=== PATIENT | female | born 1950 | race Caucasian/White ===

== ENCOUNTER → 2016-10-16 | Outpatient (REF) | payer MEDICARE, MEDICAID, OTHER ==
[~2016-10-16] MED LIST: /LAMO20TA; /LAMO20TA OR; /ZIAC5TA; /ZIAC5TA OR; ABIL5TAB OR; ACET65TA; ACET65TA OR; ALBU INH; ALBU17IN INH; ALBU17IN2 INH; ALTA10CA; ALTA10CA OR; AMBI5TAB; AMBI5TAB OR; AMLO10TA; AMLO10TA OR; AMLO10TA2 PO; ASPI325T; ASPI325T OR; ASPI81TA3; BUSP1TAB PO; CARD2TAB; CARD2TAB OR; CELE20TA; CELE20TA OR; CELE20TA PO; CELE40TA PO; COLA100C2; COLA100C2 OR; DITR5TAB PO; DOCU100C PO; DOK100TA PO; DOXA1TAB41 PO; Dulcolax PR; FANAPT OR; FERR325T OR; FERR325T3 PO; KLON1TAB OR; LAMI25TA PO; LAMO100T PO; LEVO25TA5 PO; LEVO25TABR; LEVO25TABR OR; LIPI10TA; LIPI10TA OR; LIPI10TA PO; LISI40TA OR; LISI40TAB PO; LITH450T PO; MACROBID; MACROBID OR; MAPA325T2 PO; MIRA3350 PO; MOBI15TA PO; MOBI7.5T10 PO; MONT10TA2 PO; MULTIVIT; MULTIVIT OR; OMEP40CA2 PO; OSEL75CA PO; PERC5TAB8; PERC5TAB8 OR; PERC7.5T8; PERC7.5T8 OR; PRIL20CA; PRIL20CA OR; PRO AIR INH; PROV90AE; PROZ20CA11 PO; REME15TA PO; RISP2TAB30 PO; SENN8.6T14; SENN8.6T14 OR; SERO400T; SERO400T OR; SING10TA31; SING10TA31 OR; TRAZ100T2 PO; TRAZ100T4 PO; TYLE325T5 PO; ZIPR80CAP PO; ZOLO25TA PO; ZOLO50TA PO; [UNRECOGNIZED DRUG - CODE] PO; desyrel PO
[2016-10-16 09:53] LABS: BASO % 0.4 % (0.0-1.0); EOS # 0.2 K/mm3 (0.0-0.50); EOS % 2.6 % (0.0-3.0); LYMPH # 0.9 K/mm3 (1.5-4.5); LYMPH % 13.2 % (24.0-44.0); MEAN CORPUSCULAR HEMOGLOBIN 28.5 pg (27.0-33.0); MEAN CORPUSCULAR HGB CONC 32.4 g/dl (32.0-36.5); MEAN CORPUSCULAR VOLUME 87.9 fl (80.0-96.0); MONO # 0.4 K/mm3 (0.0-0.8); MONO % 6.5 % (0.0-5.0); NEUTROPHILS # 4.6 K/mm3 (1.8-7.7); NEUTROPHILS % 75.8 % (36.0-66.0); RED CELL DISTRIBUTION WIDTH 13.7 % (11.5-14.5)
[2016-10-16 10:17] LABS: ALBUMIN/GLOBULIN RATIO 0.75 (1.00-1.93); ALKALINE PHOSPHATASE 123 U/L (45-117); ALT/SGPT 12 U/L (12-78); ANION GAP 9 MEQ/L (8-16); AST/SGOT 14 U/L (15-37); BILIRUBIN,TOTAL 0.3 MG/DL (0.2-1.0); BLOOD UREA NITROGEN 11 MG/DL (7-18); CALCIUM LEVEL 8.7 MG/DL (8.8-10.2); CARBON DIOXIDE LEVEL 27 MEQ/L (21-32); CHLORIDE LEVEL 104 MEQ/L (98-107); CHOLESTEROL LEVEL 135 MG/DL (<200); CREATININE FOR GFR 0.59 MG/DL (0.55-1.02); GLOMERULAR FILTRATION RATE > 60.0 (>45); GLUCOSE, FASTING 88 MG/DL (80-110); POTASSIUM SERUM 4.4 MEQ/L (3.5-5.1); SODIUM LEVEL 140 MEQ/L (136-145); THYROXINE (T4) 9.7 UG/DL (4.5-12.0); TRIGLYCERIDES LEVEL 62 MG/DL (<150)
== END ==
LOC: SKLABADC 08:08
PROVIDERS: ATTEND Nurse Practitioner Adult Health
DX: I10 Essential (primary) hypertension (principal); Z79.899 Other long term (current) drug therapy; E03.9 Hypothyroidism, unspecified; E55.9 Vitamin D deficiency, unspecified; E78.00 Pure hypercholesterolemia, unspecified; I97.3 Postprocedural hypertension; F31.9 Bipolar disorder, unspecified

== ENCOUNTER → 2016-12-16 | Outpatient (REF) | payer MEDICARE, MEDICAID, OTHER ==
[2016-12-16 10:04] LABS: BASO % 0.4 % (0.0-1.0); EOS # 0.2 K/mm3 (0.0-0.50); LARGE UNSTAINED CELL # 0.1 K/mm3 (0.0-0.4); LARGE UNSTAINED CELL % 1.1 % (0.0-4.0); LYMPH # 0.9 K/mm3 (1.5-4.5); LYMPH % 15.5 % (24.0-44.0); MEAN CORPUSCULAR HEMOGLOBIN 29.2 pg (27.0-33.0); MEAN CORPUSCULAR HGB CONC 32.2 g/dl (32.0-36.5); MEAN CORPUSCULAR VOLUME 90.6 fl (80.0-96.0); MONO # 0.3 K/mm3 (0.0-0.8); MONO % 5.8 % (0.0-5.0); NEUTROPHILS # 4.3 K/mm3 (1.8-7.7); NEUTROPHILS % 74.2 % (36.0-66.0); PLATELET COUNT, AUTOMATED 432 k/mm3 (150-450); RED CELL DISTRIBUTION WIDTH 13.7 % (11.5-14.5); WHITE BLOOD COUNT 5.8 K/mm3 (4.0-10.0)
[2016-12-16 10:27] LABS: ALBUMIN/GLOBULIN RATIO 0.67 (1.00-1.93); ALKALINE PHOSPHATASE 126 U/L (45-117); ALT/SGPT 11 U/L (12-78); ANION GAP 8 MEQ/L (8-16); AST/SGOT 12 U/L (15-37); BILIRUBIN,TOTAL 0.2 MG/DL (0.2-1.0); BLOOD UREA NITROGEN 13 MG/DL (7-18); CALCIUM LEVEL 9.1 MG/DL (8.8-10.2); CARBON DIOXIDE LEVEL 27 MEQ/L (21-32); CHLORIDE LEVEL 106 MEQ/L (98-107); CHOLESTEROL LEVEL 134 MG/DL (<200); CREATININE FOR GFR 0.57 MG/DL (0.55-1.02); FREE T4 1.24 NG/DL (0.76-1.46); GLOMERULAR FILTRATION RATE > 60.0 (>45); GLUCOSE, FASTING 85 MG/DL (80-110); POTASSIUM SERUM 4.7 MEQ/L (3.5-5.1); SODIUM LEVEL 141 MEQ/L (136-145); TOTAL PROTEIN 7.5 GM/DL (6.4-8.2); TRIGLYCERIDES LEVEL 51 MG/DL (<150)
== END ==
LOC: SKLABADC 07:37
PROVIDERS: ATTEND Nurse Practitioner Adult Health
DX: E78.00 Pure hypercholesterolemia, unspecified (principal); E55.9 Vitamin D deficiency, unspecified; E03.9 Hypothyroidism, unspecified; Z79.899 Other long term (current) drug therapy

== ENCOUNTER 2017-01-26 10:42 | Emergency (ER) | payer MEDICARE, MEDICAID ==
[~2017-01-26] VITALS: Ht 167.6 cm; Wt 72.7 kg
[2017-01-26] MEDS ORDERED: BACT2OIN12 (11:15)
[2017-01-26] MEDS ORDERED: TRIA1CR TOP (11:15)
[2017-01-26] MEDS ORDERED: CLOT1CRE6 TOP (11:15)
[2017-01-26] MEDS ORDERED: APAP325T PO (11:15)
[2017-01-26] MEDS ORDERED: LAMO50TA PO (11:15)
[2017-01-26 12:58] VITALS: BP 114/67
== END 2017-01-26 13:35 | disposition home or self-care (01) ==
LOC: M ED 12:05
DX: R21 Rash and other nonspecific skin eruption (principal); E11.9 Type 2 diabetes mellitus without complications; I10 Essential (primary) hypertension; K21.9 Gastro-esophageal reflux disease without esophagitis; F31.9 Bipolar disorder, unspecified; E78.5 Hyperlipidemia, unspecified; E07.9 Disorder of thyroid, unspecified; F20.9 Schizophrenia, unspecified; Z79.899 Other long term (current) drug therapy

== ENCOUNTER → 2017-03-17 | Outpatient (REF) | payer MEDICARE, MEDICAID ==
[~2017-03-17] MED LIST changes: +ACYC800T PO; +APAP325T4 PO; +BACT2OIN12; +CLOT1CRE6 TOP; +LAMO50TA PO; +MOBI4TAB PO; -MOBI7.5T10 PO; -RISP2TAB30 PO; +RISP2TAB32 PO; +TRAZ-136 PO; -TRAZ100T4 PO; +TRIA1CR TOP
[2017-03-17 11:00] LABS: BASO % 0.6 % (0.0-1.0); EOS # 0.2 K/mm3 (0.0-0.50); EOS % 2.8 % (0.0-3.0); LYMPH # 1.1 K/mm3 (1.5-4.5); LYMPH % 15.4 % (24.0-44.0); MEAN CORPUSCULAR HEMOGLOBIN 28.8 pg (27.0-33.0); MEAN CORPUSCULAR HGB CONC 32.6 g/dl (32.0-36.5); MEAN CORPUSCULAR VOLUME 88.1 fl (80.0-96.0); MONO # 0.4 K/mm3 (0.0-0.8); MONO % 6.2 % (0.0-5.0); NEUTROPHILS # 4.5 K/mm3 (1.8-7.7); NEUTROPHILS % 73.2 % (36.0-66.0); RED CELL DISTRIBUTION WIDTH 13.7 % (11.5-14.5); WHITE BLOOD COUNT 6.1 K/mm3 (4.0-10.0)
[2017-03-17 11:16] LABS: ALBUMIN 2.9 GM/DL (3.2-5.2); ALBUMIN/GLOBULIN RATIO 0.62 (1.00-1.93); ALKALINE PHOSPHATASE 127 U/L (45-117); ALT/SGPT 12 U/L (12-78); ANION GAP 5 MEQ/L (8-16); AST/SGOT 6 U/L (15-37); BILIRUBIN,TOTAL 0.3 MG/DL (0.2-1.0); BLOOD UREA NITROGEN 13 MG/DL (7-18); CALCIUM LEVEL 9.1 MG/DL (8.8-10.2); CARBON DIOXIDE LEVEL 30 MEQ/L (21-32); CHLORIDE LEVEL 104 MEQ/L (98-107); CHOLESTEROL LEVEL 133 MG/DL (<200); CREATININE FOR GFR 0.57 MG/DL (0.55-1.02); FREE T4 1.11 NG/DL (0.76-1.46); GLOMERULAR FILTRATION RATE > 60.0 (>45); GLUCOSE, FASTING 90 MG/DL (80-110); POTASSIUM SERUM 4.6 MEQ/L (3.5-5.1); SODIUM LEVEL 139 MEQ/L (136-145); TOTAL PROTEIN 7.6 GM/DL (6.4-8.2); TRIGLYCERIDES LEVEL 68 MG/DL (<150)
== END ==
LOC: SKLABADC 09:35
PROVIDERS: ATTEND Nurse Practitioner Adult Health
DX: Z51.81 Encounter for therapeutic drug level monitoring (principal); Z79.899 Other long term (current) drug therapy; E03.9 Hypothyroidism, unspecified; E55.9 Vitamin D deficiency, unspecified; D64.9 Anemia, unspecified; E78.00 Pure hypercholesterolemia, unspecified; I10 Essential (primary) hypertension

== ENCOUNTER 2017-05-02 12:33 | Emergency (ER) | payer MEDICARE, MEDICAID ==
[~2017-05-02] VITALS: Ht 162.6 cm; Wt 77.3 kg
[2017-05-02 12:33] VITALS: BP 143/58
[~2017-05-02 12:33] MED LIST changes: -ACYC800T PO
[2017-05-02] MEDS ORDERED: ACYC800T PO (13:27)
== END 2017-05-02 13:46 | disposition home or self-care (01) ==
LOC: M ED 12:33
DX: B02.9 Zoster without complications (principal); I10 Essential (primary) hypertension; E78.00 Pure hypercholesterolemia, unspecified; R51 Headache; J45.909 Unspecified asthma, uncomplicated; K44.9 Diaphragmatic hernia without obstruction or gangrene; R73.01 Impaired fasting glucose; E07.9 Disorder of thyroid, unspecified; M54.9 Dorsalgia, unspecified; F41.9 Anxiety disorder, unspecified; F32.9 Major depressive disorder, single episode, unspecified; Z79.899 Other long term (current) drug therapy

== ENCOUNTER → 2017-09-17 | Outpatient (REF) | payer MEDICARE, MEDICAID, OTHER ==
[2017-09-17 10:41] LABS: BASO % 0.5 % (0.0-1.0); EOS # 0.2 10^3/uL (0.0-0.50); HEMATOCRIT 37.8 % (36.0-47.0); HEMOGLOBIN 12.3 g/dl (12.0-16.0); IMMATURE GRANULOCYTE % 0.4 % (0-0); LYMPH # 0.9 10^3/uL (1.5-4.5); LYMPH % 11.6 % (24.0-44.0); MEAN CORPUSCULAR HEMOGLOBIN 28.3 pg (27.0-33.0); MEAN CORPUSCULAR HGB CONC 32.5 g/dl (32.0-36.5); MEAN CORPUSCULAR VOLUME 86.9 fl (80.0-96.0); MONO # 0.6 10^3/uL (0.0-0.8); MONO % 7.9 % (0.0-5.0); NEUTROPHILS # 5.8 10^3/uL (1.8-7.7); NEUTROPHILS % 77.6 % (36.0-66.0); PLATELET COUNT, AUTOMATED 443 10^3/uL (150-450); RED BLOOD COUNT 4.35 10^6/uL (4.00-5.40); RED CELL DISTRIBUTION WIDTH 13.8 % (11.5-14.5); WHITE BLOOD COUNT 7.5 10^3/uL (4.0-10.0)
[2017-09-17 11:11] LABS: ESTIMATED AVERAGE GLUCOSE 108 MG/DL (60-110); HEMOGLOBIN A1c 5.4 %
[2017-09-17 11:15] LABS: TOTAL 25(OH) VITAMIN D 16.9 NG/ML (30.0-100.0)
[2017-09-17 11:22] LABS: ALBUMIN 3.1 GM/DL (3.2-5.2); ALBUMIN/GLOBULIN RATIO 0.67 (1.00-1.93); ALKALINE PHOSPHATASE 122 U/L (45-117); ALT/SGPT 9 U/L (12-78); ANION GAP 8 MEQ/L (8-16); AST/SGOT 9 U/L (7-37); BILIRUBIN,TOTAL 0.2 MG/DL (0.2-1.0); BLOOD UREA NITROGEN 11 MG/DL (7-18); CALCIUM LEVEL 9.2 MG/DL (8.8-10.2); CARBON DIOXIDE LEVEL 26 MEQ/L (21-32); CHLORIDE LEVEL 104 MEQ/L (98-107); CHOLESTEROL LEVEL 129 MG/DL (<200); CHOLESTEROL RISK RATIO 2.015 (<5); CREATININE FOR GFR 0.64 MG/DL (0.55-1.30); FREE T4 1.24 NG/DL (0.76-1.46); GLOMERULAR FILTRATION RATE > 60.0 (>45); GLUCOSE, FASTING 100 MG/DL (70-100); HDL CHOLESTEROL 64 MG/DL (>40); LDL CHOLESTEROL 54.8 MG/DL (<100); NON-HDL-C 65 MG/DL; POTASSIUM SERUM 4.7 MEQ/L (3.5-5.1); SODIUM LEVEL 138 MEQ/L (136-145); TOTAL PROTEIN 7.7 GM/DL (6.4-8.2); TRIGLYCERIDES LEVEL 51 MG/DL (<150)
== END ==
LOC: SKLABADC 09:01
DX: E78.00 Pure hypercholesterolemia, unspecified (principal); D64.9 Anemia, unspecified; E55.9 Vitamin D deficiency, unspecified; I97.3 Postprocedural hypertension; Z79.899 Other long term (current) drug therapy
CPT/HCPCS: 84443

== ENCOUNTER 2017-12-11 23:39 | Inpatient (IN) | payer MEDICARE, OTHER, MEDICAID ==
[2017-12-12 01:36] LABS: BASO % 0.3 % (0.0-1.0); EOS # 0.5 10^3/uL (0.0-0.50); HEMATOCRIT 35.9 % (36.0-47.0); HEMOGLOBIN 11.7 g/dl (12.0-15.5); IMMATURE GRANULOCYTE % 0.3 % (0-3.0); LYMPH # 1.3 10^3/uL (1.5-4.5); LYMPH % 14.1 % (24.0-44.0); MEAN CORPUSCULAR HEMOGLOBIN 27.1 pg (27.0-33.0); MEAN CORPUSCULAR HGB CONC 32.6 g/dl (32.0-36.5); MEAN CORPUSCULAR VOLUME 83.3 fl (80.0-96.0); MONO # 0.8 10^3/uL (0.0-0.8); MONO % 8.7 % (0.0-5.0); NEUTROPHILS # 6.6 10^3/uL (1.8-7.7); NEUTROPHILS % 71.6 % (36.0-66.0); PLATELET COUNT, AUTOMATED 410 10^3/uL (150-450); RED BLOOD COUNT 4.31 10^6/uL (4.00-5.40); RED CELL DISTRIBUTION WIDTH 14.6 % (11.5-14.5); WHITE BLOOD COUNT 9.3 10^3/uL (4.0-10.0)
[2017-12-12 01:48] LABS: INR 1.09; PROTHROMBIN TIME 14.2 SECONDS (12.4-14.5)
[2017-12-12 02:03] LABS: ANION GAP 7 MEQ/L (8-16); BLOOD UREA NITROGEN 13 MG/DL (7-18); CALCIUM LEVEL 9.4 MG/DL (8.8-10.2); CARBON DIOXIDE LEVEL 27 MEQ/L (21-32); CHLORIDE LEVEL 102 MEQ/L (98-107); CK-MB VALUE MASS < 1.0 NG/ML (<3.6); CPK CREATINE PHOSPHOKINASE 26 U/L (26-192); CREATININE FOR GFR 0.58 MG/DL (0.55-1.30); GLOMERULAR FILTRATION RATE > 60.0 (>45); GLUCOSE, FASTING 98 MG/DL (70-100); MB/CK RELATIVE INDEX 3.84 (< OR =4); POTASSIUM SERUM 3.9 MEQ/L (3.5-5.1); SODIUM LEVEL 136 MEQ/L (136-145); TROPONIN I < 0.02 NG/ML (< 0.10)
[2017-12-12] MEDS: cefTRIAXone SOD 1 GM in D5W MINI-BAG PLUS 50 ML IV (02:41)
[2017-12-12] MEDS ORDERED: traZODone 100 MG TAB PO (03:15)
[2017-12-12] MEDS ORDERED: MIRALAX *UNIT DOSE* 17GM PACKET PO (03:15)
[2017-12-12] MEDS ORDERED: IPRATROPIUM 0.5MG/ALBUTEROL 2.5MG INH SOL UD 3ML (DUONEB)(J7620) NEB (03:15)
[2017-12-12] MEDS: ATORVASTATIN 10 MG TAB PO ×2 (04:06→20:53)
[2017-12-12] MEDS: MONTELUKAST 10 MG TAB PO ×2 (04:06→20:53)
[2017-12-12] MEDS: HEPARIN SOD (PORCINE) 5000 UNITS/ML VIAL SC ×3 (05:06→20:51)
[2017-12-12] MEDS: DOXYCYCLINE HYCLATE 100 MG in D5W MINI-BAG PLUS 100 ML IV ×2 (05:06→18:33)
[2017-12-12] MEDS: LISINOPRIL 20 MG TAB PO (09:00)
[2017-12-12] MEDS: risperiDONE 2 MG TAB PO ×2 (09:00→20:54)
[2017-12-12] MEDS: FERROUS SULFATE 325MG TAB PO (09:00)
[2017-12-12] MEDS: guaiFENesin ER 600 MG TAB PO ×2 (09:01→20:53)
[2017-12-12] MEDS: MELOXICAM (MOBIC) 7.5 MG TAB PO (09:01)
[2017-12-12] MEDS: ACETAMINOPHEN 325 MG TAB PO ×2 (09:01→20:53)
[2017-12-12] MEDS: amLODIPine 10 MG TAB PO (09:01)
[2017-12-12] MEDS: OMEPRAZOLE 20 MG CAP PO (09:01)
[2017-12-12] MEDS: DOCUSATE SODIUM 100 MG CAP PO ×2 (09:01→20:53)
[2017-12-12] MEDS: lamoTRIgine 25 MG TAB PO ×2 (09:01→20:51)
[2017-12-12] MEDS: LEVOTHYROXINE 25MCG TABLET (0.025MG) PO (09:01)
[2017-12-13] MEDS: cefTRIAXone SOD 1 GM in D5W MINI-BAG PLUS 50 ML IV (03:52)
[2017-12-13] MEDS: DOXYCYCLINE HYCLATE 100 MG in D5W MINI-BAG PLUS 100 ML IV ×2 (05:18→17:36)
[2017-12-13] MEDS: HEPARIN SOD (PORCINE) 5000 UNITS/ML VIAL SC ×3 (05:18→21:42)
[2017-12-13 06:07] LABS: HEMATOCRIT 33.8 % (36.0-47.0); HEMOGLOBIN 10.7 g/dl (12.0-15.5); MEAN CORPUSCULAR HEMOGLOBIN 26.8 pg (27.0-33.0); MEAN CORPUSCULAR HGB CONC 31.7 g/dl (32.0-36.5); MEAN CORPUSCULAR VOLUME 84.7 fl (80.0-96.0); PLATELET COUNT, AUTOMATED 390 10^3/uL (150-450); RED BLOOD COUNT 3.99 10^6/uL (4.00-5.40); RED CELL DISTRIBUTION WIDTH 14.9 % (11.5-14.5); WHITE BLOOD COUNT 7.3 10^3/uL (4.0-10.0)
[2017-12-13 06:31] LABS: ANION GAP 6 MEQ/L (8-16); BLOOD UREA NITROGEN 12 MG/DL (7-18); CALCIUM LEVEL 8.8 MG/DL (8.8-10.2); CARBON DIOXIDE LEVEL 26 MEQ/L (21-32); CHLORIDE LEVEL 108 MEQ/L (98-107); CREATININE FOR GFR 0.43 MG/DL (0.55-1.30); GLOMERULAR FILTRATION RATE > 60.0 (>45); GLUCOSE, FASTING 91 MG/DL (70-100); POTASSIUM SERUM 4.3 MEQ/L (3.5-5.1); SODIUM LEVEL 140 MEQ/L (136-145)
[2017-12-13] MEDS: amLODIPine 10 MG TAB PO (08:15)
[2017-12-13] MEDS: guaiFENesin ER 600 MG TAB PO ×2 (08:15→21:40)
[2017-12-13] MEDS: lamoTRIgine 25 MG TAB PO ×2 (08:15→21:42)
[2017-12-13] MEDS: OMEPRAZOLE 20 MG CAP PO (08:16)
[2017-12-13] MEDS: risperiDONE 2 MG TAB PO ×2 (08:16→21:40)
[2017-12-13] MEDS: LEVOTHYROXINE 25MCG TABLET (0.025MG) PO (08:16)
[2017-12-13] MEDS: ACETAMINOPHEN 325 MG TAB PO ×2 (08:16→21:40)
[2017-12-13] MEDS: FERROUS SULFATE 325MG TAB PO (08:16)
[2017-12-13] MEDS: MELOXICAM (MOBIC) 7.5 MG TAB PO (08:16)
[2017-12-13] MEDS: LISINOPRIL 20 MG TAB PO (08:16)
[2017-12-13] MEDS: DOCUSATE SODIUM 100 MG CAP PO ×2 (08:16→21:42)
[2017-12-13] MEDS: ATORVASTATIN 10 MG TAB PO (21:40)
[2017-12-13] MEDS: MONTELUKAST 10 MG TAB PO (21:41)
[2017-12-14] MEDS: cefTRIAXone SOD 1 GM in D5W MINI-BAG PLUS 50 ML IV (03:40)
[2017-12-14] MEDS: HEPARIN SOD (PORCINE) 5000 UNITS/ML VIAL SC ×3 (05:08→21:46)
[2017-12-14] MEDS: DOXYCYCLINE HYCLATE 100 MG in D5W MINI-BAG PLUS 100 ML IV ×2 (05:08→17:21)
[2017-12-14 06:30] LABS: HEMATOCRIT 33.2 % (36.0-47.0); HEMOGLOBIN 10.8 g/dl (12.0-15.5); MEAN CORPUSCULAR HEMOGLOBIN 27.6 pg (27.0-33.0); MEAN CORPUSCULAR HGB CONC 32.5 g/dl (32.0-36.5); MEAN CORPUSCULAR VOLUME 84.9 fl (80.0-96.0); PLATELET COUNT, AUTOMATED 375 10^3/uL (150-450); RED BLOOD COUNT 3.91 10^6/uL (4.00-5.40); RED CELL DISTRIBUTION WIDTH 14.9 % (11.5-14.5); WHITE BLOOD COUNT 6.9 10^3/uL (4.0-10.0)
[2017-12-14 06:53] LABS: ANION GAP 6 MEQ/L (8-16); BLOOD UREA NITROGEN 13 MG/DL (7-18); C REACTIVE PROTEIN QUANTITATIV 5.99 MG/DL (0.00-0.30); CALCIUM LEVEL 8.9 MG/DL (8.8-10.2); CARBON DIOXIDE LEVEL 24 MEQ/L (21-32); CHLORIDE LEVEL 109 MEQ/L (98-107); CREATININE FOR GFR 0.46 MG/DL (0.55-1.30); GLOMERULAR FILTRATION RATE > 60.0 (>45); GLUCOSE, FASTING 89 MG/DL (70-100); POTASSIUM SERUM 4.1 MEQ/L (3.5-5.1); SODIUM LEVEL 139 MEQ/L (136-145)
[2017-12-14] MEDS: LEVOTHYROXINE 25MCG TABLET (0.025MG) PO (07:52)
[2017-12-14] MEDS: ACETAMINOPHEN 325 MG TAB PO ×2 (07:52→21:47)
[2017-12-14] MEDS: FERROUS SULFATE 325MG TAB PO (07:52)
[2017-12-14] MEDS: amLODIPine 10 MG TAB PO (07:52)
[2017-12-14] MEDS: MELOXICAM (MOBIC) 7.5 MG TAB PO (07:52)
[2017-12-14] MEDS: guaiFENesin ER 600 MG TAB PO ×2 (07:53→21:47)
[2017-12-14] MEDS: LISINOPRIL 20 MG TAB PO (07:53)
[2017-12-14] MEDS: lamoTRIgine 25 MG TAB PO ×2 (07:53→21:46)
[2017-12-14] MEDS: OMEPRAZOLE 20 MG CAP PO (07:53)
[2017-12-14] MEDS: risperiDONE 2 MG TAB PO ×2 (07:53→21:47)
[2017-12-14] MEDS: DOCUSATE SODIUM 100 MG CAP PO ×2 (07:53→21:47)
[2017-12-14] MEDS: ATORVASTATIN 10 MG TAB PO (21:46)
[2017-12-14] MEDS: MONTELUKAST 10 MG TAB PO (21:47)
[2017-12-15] MEDS: cefTRIAXone SOD 1 GM in D5W MINI-BAG PLUS 50 ML IV (04:37)
[2017-12-15] MEDS: HEPARIN SOD (PORCINE) 5000 UNITS/ML VIAL SC ×3 (05:43→21:29)
[2017-12-15] MEDS: DOXYCYCLINE HYCLATE 100 MG in D5W MINI-BAG PLUS 100 ML IV (05:43)
[2017-12-15 05:50] LABS: HEMOGLOBIN 11.1 g/dl (12.0-15.5); MEAN CORPUSCULAR HEMOGLOBIN 27.6 pg (27.0-33.0); MEAN CORPUSCULAR HGB CONC 32.6 g/dl (32.0-36.5); MEAN CORPUSCULAR VOLUME 84.6 fl (80.0-96.0); PLATELET COUNT, AUTOMATED 400 10^3/uL (150-450); RED BLOOD COUNT 4.02 10^6/uL (4.00-5.40); RED CELL DISTRIBUTION WIDTH 14.8 % (11.5-14.5)
[2017-12-15 06:08] LABS: ANION GAP 6 MEQ/L (8-16); BLOOD UREA NITROGEN 10 MG/DL (7-18); CARBON DIOXIDE LEVEL 26 MEQ/L (21-32); CHLORIDE LEVEL 109 MEQ/L (98-107); CREATININE FOR GFR 0.48 MG/DL (0.55-1.30); GLOMERULAR FILTRATION RATE > 60.0 (>45); GLUCOSE, FASTING 89 MG/DL (70-100); SODIUM LEVEL 141 MEQ/L (136-145)
[2017-12-15] MEDS: FERROUS SULFATE 325MG TAB PO (08:27)
[2017-12-15] MEDS: MELOXICAM (MOBIC) 7.5 MG TAB PO (08:27)
[2017-12-15] MEDS: ACETAMINOPHEN 325 MG TAB PO ×2 (08:27→20:04)
[2017-12-15] MEDS: risperiDONE 2 MG TAB PO ×2 (08:27→20:03)
[2017-12-15] MEDS: LEVOTHYROXINE 25MCG TABLET (0.025MG) PO (08:27)
[2017-12-15] MEDS: amLODIPine 10 MG TAB PO (08:28)
[2017-12-15] MEDS: DOCUSATE SODIUM 100 MG CAP PO ×2 (08:28→20:03)
[2017-12-15] MEDS: OMEPRAZOLE 20 MG CAP PO (08:28)
[2017-12-15] MEDS: LISINOPRIL 20 MG TAB PO (08:28)
[2017-12-15] MEDS: lamoTRIgine 25 MG TAB PO ×2 (08:28→20:03)
[2017-12-15] MEDS: guaiFENesin ER 600 MG TAB PO ×2 (08:28→20:03)
[2017-12-15] MEDS: BACITRACIN OINT 30GM TOP (08:29)
[2017-12-15] MEDS: CEFDINIR 300 MG CAP (OMNICEF) PO (20:03)
[2017-12-15] MEDS: MONTELUKAST 10 MG TAB PO (20:03)
[2017-12-15] MEDS: ATORVASTATIN 10 MG TAB PO (20:04)
[2017-12-16] MEDS: HEPARIN SOD (PORCINE) 5000 UNITS/ML VIAL SC (05:48)
[2017-12-16 06:19] LABS: HEMATOCRIT 34.3 % (36.0-47.0); HEMOGLOBIN 11.4 g/dl (12.0-15.5); MEAN CORPUSCULAR HGB CONC 33.2 g/dl (32.0-36.5); MEAN CORPUSCULAR VOLUME 84.3 fl (80.0-96.0); PLATELET COUNT, AUTOMATED 415 10^3/uL (150-450); RED BLOOD COUNT 4.07 10^6/uL (4.00-5.40); RED CELL DISTRIBUTION WIDTH 14.8 % (11.5-14.5); WHITE BLOOD COUNT 6.5 10^3/uL (4.0-10.0)
[2017-12-16 06:48] LABS: ANION GAP 5 MEQ/L (8-16); BLOOD UREA NITROGEN 10 MG/DL (7-18); C REACTIVE PROTEIN QUANTITATIV 3.36 MG/DL (0.00-0.30); CALCIUM LEVEL 8.9 MG/DL (8.8-10.2); CARBON DIOXIDE LEVEL 26 MEQ/L (21-32); CHLORIDE LEVEL 110 MEQ/L (98-107); CREATININE FOR GFR 0.42 MG/DL (0.55-1.30); GLOMERULAR FILTRATION RATE > 60.0 (>45); GLUCOSE, FASTING 82 MG/DL (70-100); POTASSIUM SERUM 4.1 MEQ/L (3.5-5.1); SODIUM LEVEL 141 MEQ/L (136-145)
[2017-12-16] MEDS: LEVOTHYROXINE 25MCG TABLET (0.025MG) PO (08:40)
[2017-12-16] MEDS: CEFDINIR 300 MG CAP (OMNICEF) PO (08:40)
[2017-12-16] MEDS: LISINOPRIL 20 MG TAB PO (08:40)
[2017-12-16] MEDS: amLODIPine 10 MG TAB PO (08:40)
[2017-12-16] MEDS: OMEPRAZOLE 20 MG CAP PO (08:40)
[2017-12-16] MEDS: FERROUS SULFATE 325MG TAB PO (08:40)
[2017-12-16] MEDS: DOCUSATE SODIUM 100 MG CAP PO (08:40)
[2017-12-16] MEDS: guaiFENesin ER 600 MG TAB PO (08:41)
[2017-12-16] MEDS: ACETAMINOPHEN 325 MG TAB PO (08:41)
[2017-12-16] MEDS: lamoTRIgine 25 MG TAB PO (08:41)
[2017-12-16] MEDS: MELOXICAM (MOBIC) 7.5 MG TAB PO (08:41)
[2017-12-16] MEDS: risperiDONE 2 MG TAB PO (08:41)
[2017-12-16] MEDS: BACITRACIN OINT 30GM TOP (08:42)
== END 2017-12-16 13:04 | disposition home health service (06) | DRG 194 ==
LOC: M ED 23:39 → M ED INP 12-12 02:44 → M MSPAV 12-12 03:57
DX: J18.9 Pneumonia, unspecified organism (principal); J44.0 Chronic obstructive pulmonary disease with (acute) lower respiratory infection; M06.9 Rheumatoid arthritis, unspecified; I10 Essential (primary) hypertension; D50.9 Iron deficiency anemia, unspecified; E03.9 Hypothyroidism, unspecified; K21.9 Gastro-esophageal reflux disease without esophagitis; Z87.891 Personal history of nicotine dependence; Z79.899 Other long term (current) drug therapy

== ENCOUNTER → 2017-12-22 | Outpatient (REF) | payer MEDICARE, OTHER ==
[2017-12-22 10:00] LABS: BASO % 0.4 % (0.0-1.0); EOS # 0.3 10^3/uL (0.0-0.50); EOS % 3.8 % (0.0-3.0); HEMATOCRIT 36.8 % (36.0-47.0); HEMOGLOBIN 11.8 g/dl (12.0-15.5); IMMATURE GRANULOCYTE % 0.4 % (0-3.0); LYMPH # 1.1 10^3/uL (1.5-4.5); LYMPH % 14.2 % (24.0-44.0); MEAN CORPUSCULAR HEMOGLOBIN 27.6 pg (27.0-33.0); MEAN CORPUSCULAR HGB CONC 32.1 g/dl (32.0-36.5); MONO # 0.6 10^3/uL (0.0-0.8); MONO % 8.2 % (0.0-5.0); NEUTROPHILS # 5.4 10^3/uL (1.8-7.7); PLATELET COUNT, AUTOMATED 381 10^3/uL (150-450); RED BLOOD COUNT 4.28 10^6/uL (4.00-5.40); RED CELL DISTRIBUTION WIDTH 15.7 % (11.5-14.5); WHITE BLOOD COUNT 7.4 10^3/uL (4.0-10.0)
[2017-12-22 10:35] LABS: ALBUMIN 2.9 GM/DL (3.2-5.2); ALBUMIN/GLOBULIN RATIO 0.62 (1.00-1.93); ALKALINE PHOSPHATASE 131 U/L (45-117); ALT/SGPT 15 U/L (12-78); ANION GAP 8 MEQ/L (8-16); AST/SGOT 14 U/L (7-37); BILIRUBIN,TOTAL 0.2 MG/DL (0.2-1.0); BLOOD UREA NITROGEN 11 MG/DL (7-18); CALCIUM LEVEL 8.8 MG/DL (8.8-10.2); CARBON DIOXIDE LEVEL 26 MEQ/L (21-32); CHLORIDE LEVEL 104 MEQ/L (98-107); CHOLESTEROL LEVEL 124 MG/DL (<200); CHOLESTEROL RISK RATIO 2.431 (<5); CREATININE FOR GFR 0.52 MG/DL (0.55-1.30); FREE T4 1.29 NG/DL (0.76-1.46); GLOMERULAR FILTRATION RATE > 60.0 (>45); GLUCOSE, FASTING 118 MG/DL (70-100); HDL CHOLESTEROL 51 MG/DL (>40); NON-HDL-C 73 MG/DL; POTASSIUM SERUM 4.1 MEQ/L (3.5-5.1); SODIUM LEVEL 138 MEQ/L (136-145); TOTAL PROTEIN 7.6 GM/DL (6.4-8.2); TRIGLYCERIDES LEVEL 70 MG/DL (<150)
[2017-12-22 10:49] LABS: TOTAL 25(OH) VITAMIN D 18.2 NG/ML (30.0-100.0)
[2017-12-22 10:59] LABS: ESTIMATED AVERAGE GLUCOSE 103 MG/DL (60-110); HEMOGLOBIN A1c 5.2 %
== END ==
LOC: SKLABADC 08:36
DX: F31.9 Bipolar disorder, unspecified (principal); E78.00 Pure hypercholesterolemia, unspecified; D64.9 Anemia, unspecified; E55.9 Vitamin D deficiency, unspecified; E03.9 Hypothyroidism, unspecified; Z79.899 Other long term (current) drug therapy
CPT/HCPCS: 84443

== ENCOUNTER → 2018-01-13 | Outpatient (CLI) | payer MEDICARE, MEDICAID | LOC: M RAD 09:02 | DX: R91.8 Other nonspecific abnormal finding of lung field (principal); R06.02 Shortness of breath; R05 Cough | CPT/HCPCS: 71046 ==

== ENCOUNTER 2018-02-19 09:01 | Inpatient (IN) | payer MEDICARE, MEDICAID, OTHER ==
[2018-02-19] MEDS ORDERED: methylPREDNISolone INJ 40 MG/1 ML VIAL (J2920) IV (09:15)
[2018-02-19 09:40] LABS: BASO % 0.2 % (0.0-1.0); EOS % 0.1 % (0.0-3.0); HEMATOCRIT 30.8 % (36.0-47.0); HEMOGLOBIN 10.2 g/dl (12.0-15.5); IMMATURE GRANULOCYTE % 1.5 % (0-3.0); LYMPH # 0.7 10^3/uL (1.5-4.5); LYMPH % 3.4 % (24.0-44.0); MEAN CORPUSCULAR HEMOGLOBIN 27.9 pg (27.0-33.0); MEAN CORPUSCULAR HGB CONC 33.1 g/dl (32.0-36.5); MEAN CORPUSCULAR VOLUME 84.2 fl (80.0-96.0); MONO # 1.4 10^3/uL (0.0-0.8); NEUTROPHILS # 17.1 10^3/uL (1.8-7.7); NEUTROPHILS % 87.8 % (36.0-66.0); PLATELET COUNT, AUTOMATED 436 10^3/uL (150-450); RED BLOOD COUNT 3.66 10^6/uL (4.00-5.40); WHITE BLOOD COUNT 19.5 10^3/uL (4.0-10.0)
[2018-02-19] MEDS: IPRATROPIUM 0.5MG/ALBUTEROL 2.5MG INH SOL UD 3ML (DUONEB)(J7620) NEB (09:41)
[2018-02-19] MEDS: ALBUTEROL SULFATE 2.5 MG/0.5 ML INH NEB SOLN INH (09:41)
[2018-02-19] MEDS: methylPREDNISolone INJ 125 MG/2 ML VIAL (J2930) IV (09:50)
[2018-02-19 10:05] LABS: ABG HCO3 20.9 MEQ/L (22.0-26.0); ABG O2 SATURATION 98.8 % (95.0-99.0); ABG PARTIAL PRESSURE CO2 29.4 mmHg (35.0-45.0); ABG PARTIAL PRESSURE O2 111.4 mmHg (75.0-100.0); ABG STANDARD HCO3 22.8 MEQ/L (22.0-26.0); ABG TOTAL CO2 21.8 MEQ/L (23.0-31.0); ABG pH (ARTERIAL) 7.469 UNITS (7.350-7.450)
[2018-02-19] MEDS: ACETAMINOPHEN 325 MG TAB PO (10:13)
[2018-02-19] MEDS: CEFEPIME HCL 2 GM in D5W MINI-BAG PLUS 50 ML IV (10:13)
[2018-02-19 10:14] LABS: ALBUMIN 2.2 GM/DL (3.2-5.2); ALBUMIN/GLOBULIN RATIO 0.45 (1.00-1.93); ALKALINE PHOSPHATASE 104 U/L (45-117); ANION GAP 8 MEQ/L (8-16); AST/SGOT 14 U/L (7-37); BILIRUBIN,DIRECT 0.1 MG/DL (0.0-0.2); BILIRUBIN,TOTAL 0.4 MG/DL (0.2-1.0); BLOOD UREA NITROGEN 10 MG/DL (7-18); CALCIUM LEVEL 8.7 MG/DL (8.8-10.2); CARBON DIOXIDE LEVEL 25 MEQ/L (21-32); CHLORIDE LEVEL 102 MEQ/L (98-107); CPK CREATINE PHOSPHOKINASE 85 U/L (26-192); CREATININE FOR GFR 0.75 MG/DL (0.55-1.30); GLOMERULAR FILTRATION RATE > 60.0 (>45); GLUCOSE, FASTING 117 MG/DL (70-100); POTASSIUM SERUM 3.7 MEQ/L (3.5-5.1); SODIUM LEVEL 135 MEQ/L (136-145); TOTAL PROTEIN 7.1 GM/DL (6.4-8.2)
[2018-02-19 10:15] LABS: ALT/SGPT 11 U/L (12-78); CK-MB VALUE MASS 5.2 NG/ML (<3.6); MB/CK RELATIVE INDEX 6.11 (< OR =4); NT-PRO BNP 1735 PG/ML (<125)
[2018-02-19 10:20] LABS: LACTIC ACID SEPSIS PROTOCOL 2.6 MMOL/L (0.4-2.0)
[2018-02-19] MEDS: NS 1,000 ML IV (10:45)
[2018-02-19 10:47] LABS: KETONE, URINE AUTO RFX NEGATIVE (NEGATIVE); LEUKOCYTE ESTERASE UR AUTO RFX NEGATIVE (NEGATIVE); MUCUS, URINE RFX SMALL (NEGATIVE); NITRITE, URINE AUTO RFX NEGATIVE (NEGATIVE); RBC, URINE AUTO RFX 3 /HPF (0-3); SQUAM EPITHELIAL CELL UR AURFX 0 /HPF (0-6); WBC, URINE AUTO RFX 0 /HPF (0-3)
[2018-02-19] MEDS: AZITHROMYCIN INJ 500 MG, VIAL MATE ADAPTER 1 EACH in D5W 250 ML IV (11:13)
[2018-02-19 11:26] LABS: INFLUENZA A AMPLIFICATION NEGATIVE (NEGATIVE); INFLUENZA B AMPLIFICATION NEGATIVE (NEGATIVE)
[2018-02-19] MEDS ORDERED: ONDANSETRON 4MG/2ML VIAL (J2405) IV (12:15)
[2018-02-19] MEDS: VANCOMYCIN HCL 1,000 MG, VIAL MATE ADAPTER 1 EACH in D5W 250 ML IV (12:44)
[2018-02-19] MEDS: SENOKOT S TAB PO ×2 (14:47→21:41)
[2018-02-19] MEDS: ENOXAPARIN 40 MG/0.4 ML SYRINGE (J1650) SC (14:47)
[2018-02-19 15:11] LABS: CK-MB VALUE MASS 7.2 NG/ML (<3.6); CPK CREATINE PHOSPHOKINASE 132 U/L (26-192); MB/CK RELATIVE INDEX 5.45 (< OR =4)
[2018-02-19 15:18] LABS: TROPONIN I 2.06 NG/ML (< 0.10)
[2018-02-19] MEDS: MONTELUKAST 10 MG TAB PO (21:41)
[2018-02-19] MEDS: CEFEPIME HCL 1 GM in D5W MINI-BAG PLUS 50 ML IV (21:41)
[2018-02-19] MEDS: ATORVASTATIN 10 MG TAB PO (21:41)
[2018-02-19] MEDS: lamoTRIgine 25 MG TAB PO (21:41)
[2018-02-19] MEDS: MIRTAZAPINE 15 MG TAB PO (21:41)
[2018-02-19] MEDS: risperiDONE 2 MG TAB PO (22:21)
[2018-02-20] MEDS: LEVOTHYROXINE 25MCG TABLET (0.025MG) PO (05:32)
[2018-02-20 06:03] LABS: BASO % 0.2 % (0.0-1.0); EOS % 0.2 % (0.0-3.0); HEMATOCRIT 29.7 % (36.0-47.0); HEMOGLOBIN 9.6 g/dl (12.0-15.5); LYMPH # 1.4 10^3/uL (1.5-4.5); LYMPH % 7.6 % (24.0-44.0); MEAN CORPUSCULAR HEMOGLOBIN 27.5 pg (27.0-33.0); MEAN CORPUSCULAR HGB CONC 32.3 g/dl (32.0-36.5); MEAN CORPUSCULAR VOLUME 85.1 fl (80.0-96.0); MONO # 1.1 10^3/uL (0.0-0.8); MONO % 5.9 % (0.0-5.0); NEUTROPHILS # 15.4 10^3/uL (1.8-7.7); NEUTROPHILS % 84.1 % (36.0-66.0); PLATELET COUNT, AUTOMATED 393 10^3/uL (150-450); RED BLOOD COUNT 3.49 10^6/uL (4.00-5.40); RED CELL DISTRIBUTION WIDTH 15.1 % (11.5-14.5); WHITE BLOOD COUNT 18.3 10^3/uL (4.0-10.0)
[2018-02-20 06:21] LABS: ANION GAP 7 MEQ/L (8-16); BLOOD UREA NITROGEN 11 MG/DL (7-18); CALCIUM LEVEL 8.8 MG/DL (8.8-10.2); CARBON DIOXIDE LEVEL 25 MEQ/L (21-32); CHLORIDE LEVEL 111 MEQ/L (98-107); CREATININE FOR GFR 0.44 MG/DL (0.55-1.30); GLOMERULAR FILTRATION RATE > 60.0 (>45); GLUCOSE, FASTING 83 MG/DL (70-100); POTASSIUM SERUM 3.5 MEQ/L (3.5-5.1); SODIUM LEVEL 143 MEQ/L (136-145)
[2018-02-20 06:58] LABS: TROPONIN I 1.15 NG/ML (< 0.10)
[2018-02-20] MEDS: OMEPRAZOLE 20 MG CAP PO (09:19)
[2018-02-20] MEDS: SERTRALINE HCL 50 MG TAB PO (09:19)
[2018-02-20] MEDS: risperiDONE 2 MG TAB PO ×2 (09:19→20:49)
[2018-02-20] MEDS: FERROUS SULFATE 325MG TAB PO (09:19)
[2018-02-20] MEDS: SENOKOT S TAB PO ×2 (09:19→20:49)
[2018-02-20] MEDS: lamoTRIgine 25 MG TAB PO ×2 (09:19→20:49)
[2018-02-20] MEDS: ENOXAPARIN 40 MG/0.4 ML SYRINGE (J1650) SC (09:20)
[2018-02-20] MEDS: CEFEPIME HCL 1 GM in D5W MINI-BAG PLUS 50 ML IV ×2 (09:32→22:07)
[2018-02-20] MEDS: AZITHROMYCIN INJ 500 MG, VIAL MATE ADAPTER 1 EACH in D5W 250 ML IV (11:15)
[2018-02-20] MEDS: ATORVASTATIN 10 MG TAB PO (20:49)
[2018-02-20] MEDS: MIRTAZAPINE 15 MG TAB PO (20:49)
[2018-02-20] MEDS: MONTELUKAST 10 MG TAB PO (20:49)
[2018-02-21] MEDS: LEVOTHYROXINE 25MCG TABLET (0.025MG) PO (05:43)
[2018-02-21 06:17] LABS: BASO % 0.3 % (0.0-1.0); EOS # 0.4 10^3/uL (0.0-0.50); HEMATOCRIT 31.4 % (36.0-47.0); HEMOGLOBIN 10.2 g/dl (12.0-15.5); IMMATURE GRANULOCYTE % 2.3 % (0-3.0); LYMPH # 1.4 10^3/uL (1.5-4.5); LYMPH % 11.9 % (24.0-44.0); MEAN CORPUSCULAR HEMOGLOBIN 27.9 pg (27.0-33.0); MEAN CORPUSCULAR HGB CONC 32.5 g/dl (32.0-36.5); MEAN CORPUSCULAR VOLUME 85.8 fl (80.0-96.0); MONO # 0.4 10^3/uL (0.0-0.8); MONO % 3.4 % (0.0-5.0); NEUTROPHILS # 9.3 10^3/uL (1.8-7.7); NEUTROPHILS % 79.1 % (36.0-66.0); PLATELET COUNT, AUTOMATED 445 10^3/uL (150-450); RED BLOOD COUNT 3.66 10^6/uL (4.00-5.40); RED CELL DISTRIBUTION WIDTH 15.2 % (11.5-14.5); WHITE BLOOD COUNT 11.8 10^3/uL (4.0-10.0)
[2018-02-21 06:35] LABS: ANION GAP 7 MEQ/L (8-16); BLOOD UREA NITROGEN 8 MG/DL (7-18); CALCIUM LEVEL 8.3 MG/DL (8.8-10.2); CARBON DIOXIDE LEVEL 25 MEQ/L (21-32); CHLORIDE LEVEL 110 MEQ/L (98-107); CREATININE FOR GFR 0.47 MG/DL (0.55-1.30); GLOMERULAR FILTRATION RATE > 60.0 (>45); GLUCOSE, FASTING 81 MG/DL (70-100); POTASSIUM SERUM 3.6 MEQ/L (3.5-5.1); SODIUM LEVEL 142 MEQ/L (136-145)
[2018-02-21] MEDS: FERROUS SULFATE 325MG TAB PO (09:14)
[2018-02-21] MEDS: lamoTRIgine 25 MG TAB PO ×2 (09:14→20:23)
[2018-02-21] MEDS: SENOKOT S TAB PO ×2 (09:14→20:23)
[2018-02-21] MEDS: OMEPRAZOLE 20 MG CAP PO (09:15)
[2018-02-21] MEDS: ENOXAPARIN 40 MG/0.4 ML SYRINGE (J1650) SC (09:15)
[2018-02-21] MEDS: SERTRALINE HCL 50 MG TAB PO (09:15)
[2018-02-21] MEDS: risperiDONE 2 MG TAB PO ×2 (09:15→20:23)
[2018-02-21] MEDS: CEFEPIME HCL 1 GM in D5W MINI-BAG PLUS 50 ML IV ×2 (09:49→20:22)
[2018-02-21] MEDS: AZITHROMYCIN INJ 500 MG, VIAL MATE ADAPTER 1 EACH in D5W 250 ML IV (11:01)
[2018-02-21 11:09] LABS: TROPONIN I 0.26 NG/ML (< 0.10)
[2018-02-21] MEDS: ATORVASTATIN 10 MG TAB PO (20:22)
[2018-02-21] MEDS: MONTELUKAST 10 MG TAB PO (20:23)
[2018-02-21] MEDS: MIRTAZAPINE 15 MG TAB PO (20:23)
[2018-02-21] MEDS: ACETAMINOPHEN 500 MG TAB PO (21:19)
[2018-02-22] MEDS: LEVOTHYROXINE 25MCG TABLET (0.025MG) PO (05:52)
[2018-02-22 06:01] LABS: BASO % 0.4 % (0.0-1.0); EOS # 0.4 10^3/uL (0.0-0.50); EOS % 5.3 % (0.0-3.0); HEMATOCRIT 31.8 % (36.0-47.0); HEMOGLOBIN 10.4 g/dl (12.0-15.5); IMMATURE GRANULOCYTE % 3.3 % (0-3.0); LYMPH # 1.2 10^3/uL (1.5-4.5); MEAN CORPUSCULAR HEMOGLOBIN 27.4 pg (27.0-33.0); MEAN CORPUSCULAR HGB CONC 32.7 g/dl (32.0-36.5); MEAN CORPUSCULAR VOLUME 83.9 fl (80.0-96.0); MONO # 0.3 10^3/uL (0.0-0.8); MONO % 4.2 % (0.0-5.0); NEUTROPHILS # 5.6 10^3/uL (1.8-7.7); NEUTROPHILS % 71.8 % (36.0-66.0); PLATELET COUNT, AUTOMATED 423 10^3/uL (150-450); RED BLOOD COUNT 3.79 10^6/uL (4.00-5.40); RED CELL DISTRIBUTION WIDTH 15.1 % (11.5-14.5); WHITE BLOOD COUNT 7.8 10^3/uL (4.0-10.0)
[2018-02-22 06:15] LABS: ANION GAP 6 MEQ/L (8-16); BLOOD UREA NITROGEN 7 MG/DL (7-18); CALCIUM LEVEL 8.5 MG/DL (8.8-10.2); CARBON DIOXIDE LEVEL 27 MEQ/L (21-32); CHLORIDE LEVEL 109 MEQ/L (98-107); CREATININE FOR GFR 0.43 MG/DL (0.55-1.30); GLOMERULAR FILTRATION RATE > 60.0 (>45); GLUCOSE, FASTING 73 MG/DL (70-100); POTASSIUM SERUM 3.8 MEQ/L (3.5-5.1); SODIUM LEVEL 142 MEQ/L (136-145)
[2018-02-22] MEDS: FERROUS SULFATE 325MG TAB PO (08:50)
[2018-02-22] MEDS: ENOXAPARIN 40 MG/0.4 ML SYRINGE (J1650) SC (08:50)
[2018-02-22] MEDS: OMEPRAZOLE 20 MG CAP PO (08:50)
[2018-02-22] MEDS: SERTRALINE HCL 50 MG TAB PO (08:50)
[2018-02-22] MEDS: AZITHROMYCIN 250 MG TAB PO (08:50)
[2018-02-22] MEDS: SENOKOT S TAB PO ×2 (08:51→20:16)
[2018-02-22] MEDS: lamoTRIgine 25 MG TAB PO ×2 (08:51→20:16)
[2018-02-22] MEDS: CEFEPIME HCL 1 GM in D5W MINI-BAG PLUS 50 ML IV ×2 (10:35→21:17)
[2018-02-22] MEDS: risperiDONE 2 MG TAB PO ×2 (10:35→20:16)
[2018-02-22] MEDS: MIRTAZAPINE 15 MG TAB PO (20:15)
[2018-02-22] MEDS: MONTELUKAST 10 MG TAB PO (20:16)
[2018-02-22] MEDS: ATORVASTATIN 10 MG TAB PO (20:16)
[2018-02-23] MEDS: ACETAMINOPHEN 500 MG TAB PO (03:45)
[2018-02-23] MEDS: LEVOTHYROXINE 25MCG TABLET (0.025MG) PO (05:39)
[2018-02-23 06:21] LABS: BASO # 0.1 10^3/uL (0.0-0.2); BASO % 0.5 % (0.0-1.0); EOS # 0.5 10^3/uL (0.0-0.50); EOS % 4.9 % (0.0-3.0); HEMATOCRIT 29.5 % (36.0-47.0); HEMOGLOBIN 9.5 g/dl (12.0-15.5); IMMATURE GRANULOCYTE % 2.1 % (0-3.0); LYMPH % 9.9 % (24.0-44.0); MEAN CORPUSCULAR HEMOGLOBIN 27.5 pg (27.0-33.0); MEAN CORPUSCULAR HGB CONC 32.2 g/dl (32.0-36.5); MEAN CORPUSCULAR VOLUME 85.3 fl (80.0-96.0); MONO # 0.6 10^3/uL (0.0-0.8); MONO % 5.7 % (0.0-5.0); NEUTROPHILS # 7.8 10^3/uL (1.8-7.7); NEUTROPHILS % 76.9 % (36.0-66.0); PLATELET COUNT, AUTOMATED 377 10^3/uL (150-450); RED BLOOD COUNT 3.46 10^6/uL (4.00-5.40); RED CELL DISTRIBUTION WIDTH 14.9 % (11.5-14.5); WHITE BLOOD COUNT 10.1 10^3/uL (4.0-10.0)
[2018-02-23 06:45] LABS: ANION GAP 7 MEQ/L (8-16); BLOOD UREA NITROGEN 6 MG/DL (7-18); CALCIUM LEVEL 8.2 MG/DL (8.8-10.2); CARBON DIOXIDE LEVEL 28 MEQ/L (21-32); CHLORIDE LEVEL 106 MEQ/L (98-107); CREATININE FOR GFR 0.42 MG/DL (0.55-1.30); GLOMERULAR FILTRATION RATE > 60.0 (>45); GLUCOSE, FASTING 91 MG/DL (70-100); POTASSIUM SERUM 3.9 MEQ/L (3.5-5.1); SODIUM LEVEL 141 MEQ/L (136-145)
[2018-02-23] MEDS: lamoTRIgine 25 MG TAB PO ×2 (08:46→19:59)
[2018-02-23] MEDS: risperiDONE 2 MG TAB PO ×2 (08:46→20:00)
[2018-02-23] MEDS: OMEPRAZOLE 20 MG CAP PO (08:46)
[2018-02-23] MEDS: SENOKOT S TAB PO ×2 (08:46→20:00)
[2018-02-23] MEDS: AZITHROMYCIN 250 MG TAB PO (08:46)
[2018-02-23] MEDS: SERTRALINE HCL 50 MG TAB PO (08:46)
[2018-02-23] MEDS: ENOXAPARIN 40 MG/0.4 ML SYRINGE (J1650) SC (08:46)
[2018-02-23] MEDS: FERROUS SULFATE 325MG TAB PO (08:46)
[2018-02-23] MEDS: CEFEPIME HCL 1 GM in D5W MINI-BAG PLUS 50 ML IV ×2 (10:36→21:56)
[2018-02-23] MEDS: ATORVASTATIN 10 MG TAB PO (19:59)
[2018-02-23] MEDS: MIRTAZAPINE 15 MG TAB PO (19:59)
[2018-02-23] MEDS: MONTELUKAST 10 MG TAB PO (20:00)
[2018-02-24] MEDS: LEVOTHYROXINE 25MCG TABLET (0.025MG) PO (06:27)
[2018-02-24 06:50] LABS: BASO # 0.1 10^3/uL (0.0-0.2); BASO % 0.5 % (0.0-1.0); EOS # 0.5 10^3/uL (0.0-0.50); EOS % 5.4 % (0.0-3.0); HEMATOCRIT 30.3 % (36.0-47.0); HEMOGLOBIN 9.8 g/dl (12.0-15.5); IMMATURE GRANULOCYTE % 3.5 % (0-3.0); LYMPH # 1.3 10^3/uL (1.5-4.5); LYMPH % 13.2 % (24.0-44.0); MEAN CORPUSCULAR HEMOGLOBIN 27.8 pg (27.0-33.0); MEAN CORPUSCULAR HGB CONC 32.3 g/dl (32.0-36.5); MEAN CORPUSCULAR VOLUME 85.8 fl (80.0-96.0); MONO # 0.6 10^3/uL (0.0-0.8); NEUTROPHILS % 71.4 % (36.0-66.0); PLATELET COUNT, AUTOMATED 411 10^3/uL (150-450); RED BLOOD COUNT 3.53 10^6/uL (4.00-5.40); WHITE BLOOD COUNT 9.8 10^3/uL (4.0-10.0)
[2018-02-24 07:05] LABS: ANION GAP 5 MEQ/L (8-16); BLOOD UREA NITROGEN 5 MG/DL (7-18); CALCIUM LEVEL 8.4 MG/DL (8.8-10.2); CARBON DIOXIDE LEVEL 28 MEQ/L (21-32); CHLORIDE LEVEL 108 MEQ/L (98-107); CREATININE FOR GFR 0.37 MG/DL (0.55-1.30); GLOMERULAR FILTRATION RATE > 60.0 (>45); GLUCOSE, FASTING 81 MG/DL (70-100); POTASSIUM SERUM 3.9 MEQ/L (3.5-5.1); SODIUM LEVEL 141 MEQ/L (136-145)
[2018-02-24] MEDS: FERROUS SULFATE 325MG TAB PO (10:09)
[2018-02-24] MEDS: BISACODYL 5 MG TAB PO (10:09)
[2018-02-24] MEDS: OMEPRAZOLE 20 MG CAP PO (10:09)
[2018-02-24] MEDS: lamoTRIgine 25 MG TAB PO (10:09)
[2018-02-24] MEDS: ENOXAPARIN 40 MG/0.4 ML SYRINGE (J1650) SC (10:09)
[2018-02-24] MEDS: SERTRALINE HCL 50 MG TAB PO (10:09)
[2018-02-24] MEDS: AZITHROMYCIN 250 MG TAB PO (10:09)
[2018-02-24] MEDS: SENOKOT S TAB PO (10:09)
[2018-02-24] MEDS: risperiDONE 2 MG TAB PO (11:15)
[2018-02-24] MEDS: CEFEPIME HCL 1 GM in D5W MINI-BAG PLUS 50 ML IV (11:15)
== END 2018-02-24 13:09 | disposition home health service (06) | DRG 194 ==
LOC: M ED 09:01 → M ED INP 12:05 → M MSPAV 16:28
DX: J18.9 Pneumonia, unspecified organism (principal); E87.2 Acidosis; J44.0 Chronic obstructive pulmonary disease with (acute) lower respiratory infection; R29.6 Repeated falls; F31.9 Bipolar disorder, unspecified; M06.9 Rheumatoid arthritis, unspecified; I10 Essential (primary) hypertension; E03.9 Hypothyroidism, unspecified; K21.9 Gastro-esophageal reflux disease without esophagitis; E11.51 Type 2 diabetes mellitus with diabetic peripheral angiopathy without gangrene; E78.5 Hyperlipidemia, unspecified; K44.9 Diaphragmatic hernia without obstruction or gangrene; R26.89 Other abnormalities of gait and mobility; F60.3 Borderline personality disorder; R01.1 Cardiac murmur, unspecified; Z96.653 Presence of artificial knee joint, bilateral; Z87.891 Personal history of nicotine dependence; Y95 Nosocomial condition; Z79.899 Other long term (current) drug therapy

== ENCOUNTER 2019-01-30 15:15 | Inpatient (IN) | payer MEDICARE, MEDICAID ==
[~2019-01-30] VITALS: Ht 162.6 cm; Wt 68.7 kg
[~2019-01-30 15:15] MED LIST changes: -/LAMO20TA; -/LAMO20TA OR; -/ZIAC5TA; -/ZIAC5TA OR; +ACYC800T PO; -ALBU INH; -AMLO10TA2 PO; +AMLO10TA5 PO; +AVEL1TAB3 PO; +CEFD300CAP PO; +CLOT1CRE2 TOP; -CLOT1CRE6 TOP; +LAMI1TAB9; +LAMI1TAB9 OR; +LISI-538 PO; +LISI40TA52 PO; -LISI40TAB PO; +MELO15TA28 PO; +MIRT45TA4 PO; +MUCI600T31 PO; +MUCI600T37 PO; +NYST1POW9 TOP; +OMEP20CA3 PO; +SERT-141 PO; -TRAZ-136 PO; +TRAZ-163 PO; +TRIA0.1C60 TOP; -TRIA1CR TOP; +ZIAC1TAB; +ZIAC1TAB OR; +ZITHTAB PO; +[UNRECOGNIZED DRUG - CODE] INH
[2019-01-30] MEDS ORDERED: NS 1,000 ML IV ONE ×2 (15:45)
[2019-01-30 15:53] LABS: BASO # 0.1 10^3/uL (0.0-0.2); BASO % 0.4 % (0.0-1.0); EOS # 0.3 10^3/uL (0.0-0.50); EOS % 2.3 % (0.0-3.0); HEMOGLOBIN 13.5 g/dl (12.0-15.5); LYMPH # 2.4 10^3/uL (1.5-4.5); MEAN CORPUSCULAR HGB CONC 31.4 g/dl (32.0-36.5); MEAN CORPUSCULAR VOLUME 89.2 fl (80.0-96.0); MONO # 0.6 10^3/uL (0.0-0.8); MONO % 4.8 % (0.0-5.0); NEUTROPHILS # 8.4 10^3/uL (1.8-7.7); NEUTROPHILS % 71.7 % (36.0-66.0); PLATELET COUNT, AUTOMATED 473 10^3/uL (150-450); RED BLOOD COUNT 4.82 10^6/uL (4.00-5.40); WHITE BLOOD COUNT 11.8 10^3/uL (4.0-10.0)
[2019-01-30] MEDS ORDERED: STOO100C PO (15:54)
[2019-01-30] MEDS ORDERED: RANI15TA PO (15:54)
[2019-01-30 16:09] LABS: INR 1.25; PROTHROMBIN TIME 15.9 SECONDS (12.1-14.4)
[2019-01-30 16:10] LABS: PARTIAL THROMBOPLASTIN TIME 32.4 SECONDS (25.4-37.6)
[2019-01-30 16:15] LABS: BLOOD UREA NITROGEN 9 MG/DL (7-18); CALCIUM LEVEL 8.6 MG/DL (8.8-10.2); CARBON DIOXIDE LEVEL 20 MEQ/L (21-32); CHLORIDE LEVEL 104 MEQ/L (98-107); CREATININE FOR GFR 0.84 MG/DL (0.55-1.30); GLOMERULAR FILTRATION RATE > 60.0 (>45); GLUCOSE, FASTING 184 MG/DL (70-100); POTASSIUM SERUM 3.8 MEQ/L (3.5-5.1); SODIUM LEVEL 136 MEQ/L (136-145)
[2019-01-30 16:16] LABS: ALBUMIN 2.7 GM/DL (3.2-5.2); ALT/SGPT 13 U/L (12-78); BILIRUBIN,DIRECT 0.2 MG/DL (0.0-0.2); BILIRUBIN,TOTAL 0.6 MG/DL (0.2-1.0); CK-MB VALUE MASS < 1.0 NG/ML (<3.6); CPK CREATINE PHOSPHOKINASE 106 U/L (26-192); LIPASE 160 U/L (73-393); MB/CK RELATIVE INDEX 0.94 (< OR =4); TOTAL PROTEIN 6.4 GM/DL (6.4-8.2); TROPONIN I < 0.02 NG/ML (< 0.10)
[2019-01-30] MEDS ORDERED: NS 1,000 ML IV SCH (16:28)
[2019-01-30] MEDS ORDERED: ISOVUE-370 76% 100ML VIAL (Q9967) As Ordered ONE (16:34)
[2019-01-30] MEDS ORDERED: NS 500 ML IV ONE (16:45)
[2019-01-30] MEDS ORDERED: MIRT1TAB17 PO (17:08)
[2019-01-30] MEDS ORDERED: RANI300C PO (17:08)
[2019-01-30] MEDS ORDERED: TRAZ-252 PO (17:09)
[2019-01-30] MEDS: NS 1,000 ML IV SCH ×3 (18:16→22:47)
[2019-01-30] MEDS: PIPERACILLIN/TAZOBACTAM SOD 3.375 GM in D5W MINI-BAG PLUS 50 ML IV SCH (18:33)
--- NOTE | 2019-01-30 18:44 | HPEPDOC ---
[facility] Medical History & Physical Date of Admission Jan 30, 2019 Date of Service: Jan 30, 2019 History and Physical CHIEF COMPLAINT: nausea, vomiting, Diarrhea this morning HISTORY OF PRESENT ILLNESS: 68 year old female with past medical history significant for HTN, RA no on chronic steroids, bipolar, hypothyroidism, DM-diet controlled, peripheral arterial disease, Hiatal Hernia, GERD,dyslipidemia, personality disorder, bipolar disorder was in her usual state of health until this morning. Her home health Aide gave her a shower at home, then she went over to her friend's house from [place], felt funny, and asked her friend if she could sit down with dizziness, nausea, vomiting food emesis x2, and diarrhea watery , non bloody, nonmucusy large in amount with abdominal cramps. she denies any fevers, sick contacts, and had eaten her meals at home yesterday and this morning which she prepared. she denies well water, sorbitol or gum use, and has not had any other family or friends with similar symptoms. She had taken her norvasc and lisinopril this morning after breakfast, and presented to the emergency room with systolic blood pressure of 50mmHg, 5 episodes of explosive watery diarrhea, GI panel was negative. She denied any sob, chest pain, pressure tightness, cough, and c/o lightheadedness and dizziness. urine was mixed with copious amounts of diarrhea, and could not be measured after 2.7 liters of ivfluids with improvement in systolic blood pressure of [address] abd/pelvis: inflammatory / infectious changes. She has had no prior episodes, had a normal colonoscopy years ago, and denies taking any bowel regimen or laxatives. Pt also denies any chronic steroid use that could cause adrenal insufficiency. cardiac markers were unremarkable, and EKG was sinus at 79 without ischemia. Hospitalist was asked to admit for diarrhea, hypotension due to hypovolemia, and lactic acidosis as an inpatient for two midnights. PAST MEDICAL HISTORY: Bipolar disorder. Rheumatoid arthritis with decreased mobility and gait instability. Hypertension. Hypothyroidism. Gastroesophageal reflux disease (GERD). Diabetes mellitus, diet controlled. Hyperlipidemia. Hiatal hernia. Heart murmur, benign. Chronic obstructive pulmonary disease (COPD), not on any medications. Peripheral arterial disease. Borderline personality disorder. LLL pneumonia 2018 [place] PAST SURGICAL HISTORY: Tonsillectomy. Adenoidectomy. Rhinoplasty. Open reduction internal fixation (ORIF) of the right ankle in 2010. Bilateral knee arthroplasty. SOCIAL HISTORY: Patient quit tobacco greater than 20 years ago. Does not use alcohol or any recreation drugs. FAMILY HISTORY: Nothing significant. HOME MEDICATIONS:PLS SEE BELOW ALLERGIES: No known allergies. REVIEW OF SYSTEMS: All 10 point review of systems were negative except those mentioned in history of present illness. PHYSICAL EXAMINATION: VITAL SIGNS:PLS SEE BELOW. GENERAL: Patient awake, alert and oriented times in trendelenberg on a stretcher lip smacking . no use of accessory respiratory muscles HEENT: Normocephalic, atraumatic. dry mucous membranes. Anicteric eyes. CHEST: Anteriorly clear to auscultationOtherwise, bilateral vesicular breath sounds. CARDIOVASCULAR: S1 and S2 regular. T No rub or gallop. ABDOMEN: Soft,slightly tender with deep palpation, no rebound no guarding. EXTREMITIES: onychomycosis. No edema. ulnar deviation b/l wrists and toes. LABORATORY DATA, IMAGING STUDIES, MICROBIOLOGY: PLS SEE BELOW ASSESSMENT/PLAN: 68 year old female with past medical history significant for HTN, RA no on chronic steroids, bipolar, hypothyroidism, DM-diet controlled, peripheral arterial disease, Hiatal Hernia, GERD,dyslipidemia, personality disorder, bipolar disorder was in her usual state of health until this morning. Her home h daryl Aide gave her a shower at home, then she went over to her friend's house from [place], felt funny, and asked her friend if she could sit down with dizziness, nausea, vomiting food emesis x2, and diarrhea watery , non bloody, nonmucusy large in amount with abdominal cramps. she denies any fevers, sick contacts, and had eaten her meals at home yesterday and this morning which she prepared. she denies well water, sorbitol or gum use, and has not had any other family or friends with similar symptoms. She had taken her norvasc and lisinopril this morning after breakfast, and presented to the emergency room with systolic blood pressure of 50mmHg, 5 episodes of explosive watery diarrhea, GI panel was negative. She denied any sob, chest pain, pressure tightness, cough, and c/o lightheadedness and dizziness. urine was mixed with copious amounts of diarrhea, and could not be measured after 2.7 liters of ivfluids with improvement in systolic blood pressure of [address] abd/pelvis: inflammatory / infectious changes. She has had no prior episodes, had a normal colonoscopy years ago, and denies taking any bowel regimen or laxatives. Pt also denies any chronic steroid use that could cause adrenal insufficiency. cardiac markers were unremarkable, and EKG was sinus at 79 without ischemia. Hospitalist was asked to admit for diarrhea, hypotension due to hypovolemia, and lactic acidosis as an inpatient for two midnights. Hypovolemic shock with severe Hypotension -due to hypovolemia from diarrhea, and effects of her amlodipine and lisinopril which she had taken this morning. - improved with 2.7 liters of ns boluses to systolic pressure of 110mmHg. -Pt denied any recent or chronic use of steroids for RA to suspect adrenal insufficiency, denied chest pain with unremarkable ekg and cardiac markers which makes cardiogenic shock unlikely. -TSH and thyroid profile are being ordered. -Telemetry monitoring until blood pressure is stable. Hypovolemia from diarrhea -presented to the emergency room with systolic blood pressure of 50mmHg, -5 episodes of explosive watery diarrhea, -GI panel was negative. -She denied any sob, chest pain, pressure tightness, cough, and c/o lighth eadedness and dizziness. -urine was mixed with copious amounts of diarrhea, and could not be measured after 2.7 liters of ivfluids with improvement in systolic blood pressure of 110 mmHg. -Ct abd/pelvis: inflammatory / infectious changes. -She has had no prior episodes, had a normal colonoscopy years ago, and denies taking any bowel regimen or laxatives. -responding to ivfluids Diarrhea -presented to the emergency room with systolic blood pressure of 50mmHg, -5 episodes of explosive watery diarrhea, -GI panel was negative. -She denied any sob, chest pain, pressure tightness, cough, and c/o lightheadedness and dizziness. -urine was mixed with copious amounts of diarrhea, and could not be measured after 2.7 liters of ivfluids with improvement in systolic blood pressure of 110 mmHg. -Ct abd/pelvis: inflammatory / infectious changes. -She has had no prior episodes, had a normal colonoscopy years ago, and denies taking any bowel regimen or laxatives. -responding to ivfluids -to prevent skin breakdown from profuse diarrhea, vitamin a&d ointment to buttocks after each episode -check thyroid profile, rule out VIPOMA and pheochromocytoma if no improvement -empiric zosyn for now Gastroenteritis -viral vs bacterial with profuse diarrhea and nausea/vomiting. -presented to the emergency room with systolic blood pressure of 50mmHg, -5 episodes of explosive watery diarrhea, -GI panel was negative. -She denied any sob, chest pain, pressure tightness, cough, and c/o lightheaded ness and dizziness. -urine was mixed with copious amounts of diarrhea, and could not be measured af ter 2.7 liters of ivfluids with improvement in systolic blood pressure of 110 mmHg. -Ct abd/pelvis: inflammatory / infectious changes. -She has had no prior episodes, had a normal colonoscopy years ago, and denies taking any bowel regimen or laxatives. -responding to ivfluids -to prevent skin breakdown from profuse diarrhea, vitamin a&d ointment to buttocks after each episode -check thyroid profile, rule out VIPOMA and pheochromocytoma if no improvement -empiric zosyn for now Hyperlipidemia. -continue once resumes solid po intake Hypothyroid. -continue synthroid -check thyroid profile Bipolar disorder and borderline personality disorder. -on mirtazapine and lamotrigine, sertraline. History of COPD, -however, the patient is not on any medications, nebulizers or inhalers at home. We will continue with Singulair at this point. Gastroesophageal reflux disease (GERD). -Will continue with omeprazole. Rheumatoid arthritis with some chronic pain. -resume home meds once stable -denies chronic steroid use to suspect adrenal insufficiency Lactic acidosis and metabolic acidosis -due to diarrhea and severe hypotension -on supportive care history of diabetes, which is diet controlled. -check a1c -sliding scale with coverage -not on meds at home Hypertension, currently with low blood pressure -hold bp meds while pt is hypotensive Diet: clears DVT prophylaxis: lovenox, compression stockings. Vital Signs Vital Signs Date Time Temp Pulse Resp B/P (MAP) Pulse Ox O2 Delivery O2 Flow Rate FiO2 01/30/19 17:12 89/48 (62) 01/30/19 17:01 89 99 01/30/19 16:52 18 Nasal Cannula 3.0 01/30/19 15:45 96.8 Laboratory Data Labs 24H Laboratory Tests 2 6/16/19 15:40: Lactic Acid Level 3.7*H 01/30/19 15:41: Immature Granulocyte % (Auto) 0.8, White Blood Count 11.8H, Red Blood Count 4.82, Hemoglobin 13.5, Hematocrit 43.0, Mean Corpuscular Volume 89.2, Mean Corpuscular Hemoglobin 28.0, Mean Corpuscular Hemoglobin Concent 31.4L, Red Cell Distribution Width 14.7H, Platelet Count 473H, Neutrophils (%) (Auto) 71.7H, Lymphocytes (%) (Auto) 20.0L, Monocytes (%) (Auto) 4.8, Eosinophils (%) (Auto) 2.3, Basophils (%) (Auto) 0.4, Neutrophils # (Auto) 8.4H, Lymphocytes # (Auto) 2.4, Monocytes # (Auto) 0.6, Eosinophils # (Auto) 0.3, Basophils # (Auto) 0.1, Nucleated Red Blood Cells % (auto) 0.0, Prothrombin Time 15.9H, Prothromb Time International Ratio 1.25, Activated Partial Thromboplast Time 32.4, Anion Gap 12, Glomerular Filtration Rate > 60.0, Calcium Level 8.6L, Aspartate Amino Transf (AST/SGOT) 22, Alanine Aminotransferase (ALT/SGPT) 13, Alkaline Phosphatase 120H, Total Bilirubin 0.6, Direct Bilirubin 0.2, Total Creatine Kinase 106, Creatine Kinase MB < 1.0, Creatine Kinase MB Relative Index 0.94, Troponin I < 0.02, Total Protein 6.4, Albumin 2.7L, Albumin/Globulin Ratio 0.73L, Lipase 160 CBC/BMP Laboratory Tests 01/30/19 15:41 Red Blood Count 4.82, Mean Corpuscular Volume 89.2, Mean Corpuscular Hemoglobin 28.0, Mean Corpuscular Hemoglobin Concent 31.4 L, Red Cell Distribution Width 14.7 H, Neutrophils (%) (Auto) 71.7 H, Lymphocytes (%) (Auto) 20.0 L, Monocytes (%) (Auto) 4.8, Eosinophils (%) (Auto) 2.3, Basophils (%) (Auto) 0.4, Neutrophils # (Auto) 8.4 H, Lymphocytes # (Auto) 2.4, Monocytes # (Auto) 0.6, Eosinophils # (Auto) 0.3, Basophils # (Auto) 0.1 Microbiology Microbiology 01/30/19 Blood Culture, Received Pending 01/30/19 Blood Culture, Received Pending 01/30/19 Gastrointestinal Tract Panel (PCR) - Final, Complete Home Medications Scheduled Atorvastatin Calcium (Lipitor) 10 Mg Tab, 5 MG PO QHS Docusate Sodium (Stool Softener) 100 Mg Capsule, 100 MG PO BID Ferrous Sulfate (Ferrous Sulfate) 325 Mg Tab, 325 MG PO DAILY Lamotrigine (Lamotrigine ER) 50 Mg Tab, 50 MG PO BID Levothyroxine Sodium (Levothyroxine Sodium) 25 Mcg Tab, 25 MCG PO DAILY Lisinopril (Lisinopril) 20 Mg Tab, 20 MG PO DAILY Meloxicam (Meloxicam) 15 Mg Tab, 7.5 MG PO DAILY Mirtazapine (Mirtazapine) 45 Mg Tab.rapdis, 45 MG PO QHS Montelukast Sodium (Montelukast Sodium) 10 Mg Tab, 10 MG PO DAILY for Omeprazole (Omeprazole) 20 Mg Cap, 20 MG PO DAILY Ranitidine HCl (Ranitidine HCl) 300 Mg Capsule, 1 CAP PO DAILY Risperidone (Risperdal) 2 Mg Tab, 2 MG PO BID for Sertraline Hcl (Sertraline HCl) 50 Mg Tab, 50 MG PO DAILY Trazodone HCl (Trazodone HCl) 50 Mg Tablet, 50 MG PO QHS Scheduled PRN Acetaminophen (Acetaminophen) 325 Mg Tab, 650 MG PO Q4H PRN for PAIN Allergies Coded Allergies: No Known Allergies (Verified , 12/11/17) A-FIB/CHADSVASC A-FIB History Current/History of A-Fib/PAF?: No Current PO Anticoag Therapy: No BRENT RIVERA MD Jan 30, 2019 17:46
--- NOTE | 2019-01-30 19:03 | ECGEPIP ---
[facility] - ED Test Date: 2019-01-30 Pat Name: CHAY REYNOSO Department: Room: - Gender: Female [employer]ayer: JJose Ramon : 1950 Requested By: ARNAV Arthur Order Number: [id number] Reading MD: Amy Holley Measurements Intervals [place] Rate: 79 P: 54 [place]: 141 QRS: 66 QRSD: 93 T: 54 QT: 414 QTc: 476 Interpretive Statements SINUS RHYTHM NSTTW ABNORMALITY VS BASELINE ARTIFACT Electronically Signed on 01-30-2019 19:03:16 EDT by Amy Holley
[2019-01-30 21:47] LABS: ACETONE/KETONE 0.64 MG/DL (<2.81); C REACTIVE PROTEIN QUANTITATIV 1.83 MG/DL (0.00-0.30); FREE THYROXINE INDEX 2.7 % (1.3-4.8); THYROID STIMULATING HORMONE 1.37 uIU/ML (0.358-3.740); THYROXINE (T4) 7.8 UG/DL (4.5-12.0)
[2019-01-31] MEDS: PIPERACILLIN/TAZOBACTAM SOD 3.375 GM in D5W MINI-BAG PLUS 50 ML IV SCH ×5 (01:27→23:31)
[2019-01-31] MEDS: NS 1,000 ML IV SCH (06:00)
--- NOTE | 2019-01-31 07:59 | REP ---
CT ABDOMEN AND PELVIS WITH IV CONTRAST: TECHNIQUE: Axial contrast enhanced images from the lung bases to the pubic symphysis using 100 mL Isovue 370 intravenous contrast material with multiplanar reformations. The visualized lung bases demonstrate fibroatelectatic change. There is a small hiatal hernia. The liver and spleen are unremarkable. There are bilateral adrenal nodules probably representing adenomas. Right measures approximately 2.2 x 1.1 cm and left 3.1 x 1.9 cm. Pancreas demonstrates no mass. There is no hydronephrosis bilaterally. Subcentimeter cyst is seen of the lower pole of the left kidney with another in the upper pole. There is a mild to moderate atherosclerotic calcification of the abdominal aorta without aneurysm. There is no periaortic adenopathy. However there are mildly enlarged external iliac lymph nodes bilaterally. There are two on the left measuring up to 1.2 cm in short axis and one on the right measuring up to 1.2 cm in short axis, with a few other subcentimeter lymph nodes bilaterally. There is no free air or free fluid. I do not see significant bowel wall thickening. There is mild distention of the stomach with air and fluid as well as mild dilatation of distal small bowel loops diffusely with fluid. There is mild distention of the right colon which is also filled with fluid. The appendix is normal. Findings involving the GI tract suggest enteritis and mild generalized ileus. Uterus and ovaries are grossly unremarkable. The urinary bladder is mildly distended and grossly unremarkable. IMPRESSION: Diffuse fluid filled stomach, small bowel and large bowel with mild dilatation of the stomach, distal small bowel and right colon. The pattern suggests diffuse mild ileus and enteritis. No free air, free fluid, or obstruction. There is mild bilateral external iliac adenopathy. There are bilateral adrenal nodules which probably represent adenomas. This could be confirmed with followup MRI of the adrenals. Electronically Signed by Ankit Patton MD 01/31/2019 08:42 A
--- NOTE | 2019-01-31 08:39 | IPNPDOC ---
Date Seen The patient was seen on 01/31/19. Progress Note SUBJECTIVE: no diarrhea episodes this morning. pt had 3 diarrhea episodes yesterday during admission. she denies any nausea, vomiting, or abdominal pain, and requesting diet to be advanced and to be moved upstairs from the ER. Tele was unremarkable overnight, and remained at sinus rhythm. thus, tele has been discontinued. She has more energy today, and no c/o dizziness, lightheadedness, sob, cough, or chills. afebrile overnight. PHYSICAL EXAMINATION: VITAL SIGNS:PLS SEE BELOW. GENERAL: Patient awake, alert and oriented times in trendelenberg on a stretcher lip smacking . no use of accessory respiratory muscles HEENT: Normocephalic, atraumatic. dry mucous membranes. Anicteric eyes. CHEST: Anteriorly clear to auscultation bilateral vesicular breath sounds. CARDIOVASCULAR: S1 and S2 regular. T No rub or gallop. ABDOMEN: Soft,slightly tender with deep palpation, no rebound no guarding. EXTREMITIES: onychomycosis. No edema. ulnar deviation b/l wrists and toes. LABORATORY DATA, IMAGING STUDIES, MICROBIOLOGY: PLS SEE BELOW ASSESSMENT/PLAN: 68 year old female with past medical history significant for HTN, RA no on chronic steroids, bipolar, hypothyroidism, DM-diet controlled, peripheral arterial disease, Hiatal Hernia, GERD,dyslipidemia, personality disorder, bipola r disorder was in her usual state of health until this morning. Her home health Aide gave her a shower at home, then she went over to her friend's house from nondenominational, felt funny, and asked her friend if she could sit down with dizziness, nausea, vomiting food emesis x2, and diarrhea watery , non bloody, nonmucusy large in amount with abdominal cramps. she denies any fevers, sick contacts, and had eaten her meals at home yesterday and this morning which she prepared. she denies well water, sorbitol or gum use, and has not had any other family or friends with similar symptoms. She had taken her norvasc and lisinopril this morning after breakfast, and presented to the emergency room with systolic blood pressure of 50mmHg, 5 episodes of explosive watery diarrhea, GI panel was negative. She denied any sob, chest pain, pressure tightness, cough, and c/o lightheadedness and dizziness. urine was mixed with copious amounts of diarrhea, and could not be measured after 2.7 liters of ivfluids with improvement in systolic blood pressure of [address] abd/pelvis: inflammatory / infectious changes. She has had no prior episodes, had a normal colonoscopy years ago, and denies taking any bowel regimen or laxatives. Pt also denies any chronic steroid use that could cause adrenal insufficiency. cardiac markers were unremarkable, and EKG was sinus at 79 without ischemia. Hospitalist was asked to admit for diarrhea, hypotension due to hypovolemia, and lactic acidosis as an inpatient for two midnights. Hypovolemic shock with severe Hypotension, resolved -due to hypovolemia from diarrhea, and effects of her and lisinopril which she had takenat home on admission - improved with 2.7 liters of ns boluses to systolic pressure of 110mmHg. -Pt denied any recent or chronic use of steroids for RA to suspect adrenal insufficiency, denied chest pain with unremarkable ekg and cardiac markers which makes cardiogenic shock unlikely. -TSH and thyroid profile reviwed -s/p Telemetry monitoring which was unremarkable -tele discontinued Hypovolemia from diarrhea -presented to the emergency room with systolic blood pressure of 50mmHg, -5 episodes of explosive watery diarrhea, -GI panel was negative. -She denied any sob, chest pain, pressure tightness, cough, and c/o lightheadedness and dizziness. -urine was mixed with copious amounts of diarrhea, and could not be measured after 2.7 liters of ivfluids with improvement in systolic blood pressure of 110 mmHg. -Ct abd/pelvis: inflammatory / infectious changes. -She has had no prior episodes, had a normal colonoscopy years ago, and denies taking any bowel regimen or laxatives. -responded to ivfluids -advanced diet to no added salt Diarrhea -presented to the emergency room with systolic blood pressure of 50mmHg, -5 episodes of explosive watery diarrhea, -GI panel was negative. -She denied any sob, chest pain, pressure tightness, cough, and c/o lightheadedness and dizziness. -urine was mixed with copious amounts of diarrhea, and could not be measured after 2.7 liters of ivfluids with improvement in systolic blood pressure of 110 mmHg. -Ct abd/pelvis: inflammatory / infectious changes. -She has had no prior episodes, had a normal colonoscopy years ago, and denies taking any bowel regimen or laxatives. -responded to ivfluids -to prevent skin breakdown from profuse diarrhea, vitamin a&d ointment to buttocks after each episode -reviewed thyroid profile, no need to do workup for VIPOMA and pheochromocytoma since pt's diarrhea has resolved -empiric zosyn for now Gastroenteritis -viral vs bacterial with profuse diarrhea and nausea/vomiting. -presented to the emergency room with systolic blood pressure of 50mmHg, -5 episodes of explosive watery diarrhea, -GI panel was negative. -She denied any sob, chest pain, pressure tightness, cough, and c/o lightheadedness and dizziness. -urine was mixed with copious amounts of diarrhea, and could not be measured after 2.7 liters of ivfluids with improvement in systolic blood pressure of 110 mmHg. -Ct abd/pelvis: inflammatory / infectious changes. -She has had no prior episodes, had a normal colonoscopy years ago, and denies taking any bowel regimen or laxatives. -responding to ivfluids -to prevent skin breakdown from profuse diarrhea, vitamin a&d ointment to buttocks after each episode -reviewed thyroid profile Hyperlipidemia. -continue once resumes solid po intake Hypothyroid. -continue synthroid -reviewed thyroid profile Bipolar disorder and borderline personality disorder. -may resume home meds History of COPD, -however, the patient is not on any medications, nebulizers or inhalers at home. We will continue with Singulair at this point. Gastroesophageal reflux disease (GERD). -Will continue with omeprazole. Rheumatoid arthritis with some chronic pain. -resume home meds -denies chronic steroid use to suspect adrenal insufficiency Lactic acidosis and metabolic acidosis ,. resolved -due to diarrhea and severe hypotension -on supportive care history of diabetes, which is diet controlled. -check a1c -sliding scale with coverage -not on meds at home Hypertension, -bp meds held on admission due to severe hypotension -may resume now that bp is improved Diet: advanced to no added salt DVT prophylaxis: lovenox, compression stockings. disposition: STABLE FOR [employer] TRANSFER AND DC TELE. VS, I&O, 24H, Fishbone Vital Signs/I&O Vital Signs Date Time Temp Pulse Resp B/P (MAP) Pulse Ox O2 Delivery O2 Flow Rate FiO2 01/31/19 07:15 18 160/78 (105) 98 Room Air 01/31/19 06:44 84 01/31/19 05:46 99.2 01/30/19 22:43 3.0 I&O- Last 24 Hours up to 6 AM 01/31/19 06:00 Intake Total 4750 ml Balance 4750 ml Laboratory Data 24H LABS Laboratory Tests 2 01/30/19 15:40: Lactic Acid Level 3.7*H 01/30/19 15:41: Immature Granulocyte % (Auto) 0.8, White Blood Count 11.8H, Red Blood Count 4.82, Hemoglobin 13.5, Hematocrit 43.0, Mean Corpuscular Volume 89.2, Mean Corpuscular Hemoglobin 28.0, Mean Corpuscular Hemoglobin Concent 31.4L, Red Cell Distribution Width 14.7H, Platelet Count 473H, Neutrophils (%) (Auto) 71.7H, Lymphocytes (%) (Auto) 20.0L, Monocytes (%) (Auto) 4.8, Eosinophils (%) (Auto) 2.3, Basophils (%) (Auto) 0.4, Neutrophils # (Auto) 8.4H, Lymphocytes # (Auto) 2.4, Monocytes # (Auto) 0.6, Eosinophils # (Auto) 0.3, Basophils # (Auto) 0.1, Nucleated Red Blood Cells % (auto) 0.0, Prothrombin Time 15.9H, Prothromb Time International Ratio 1.25, Activated Partial Thromboplast Time 32.4, Anion Gap 12, Glomerular Filtration Rate > 60.0, Calcium Level 8.6L, Aspartate Amino Transf (AST/SGOT) 22, Alanine Aminotransferase (ALT/SGPT) 13, Alkaline Phosphatase 120H, Total Bilirubin 0.6, Direct Bilirubin 0.2, Total Creatine Kinase 106, Creatine Kinase MB < 1.0, Creatine Kinase MB Relative Index 0.94, Troponin I < 0.02, Total Protein 6.4, Albumin 2.7L, Albumin/Globulin Ratio 0.73L, Lipase 160 01/30/19 21:04: Erythrocyte Sedimentation Rate 28, Estimated Mean Plasma Glucose 97, Hemoglobin A1c 5.0, Lactic Acid Followup at 4 Hours 3.1*H, C-Reactive Protein, Quantitative 1.83H, Thyroid Stimulating Hormone (TSH) 1.370, Free Thyroxine Index 2.7, Thyroxine (T4) 7.8, Triiodothyronine (T3) Uptake 35, B-Hydroxybutyrate 0.64 CBC/BMP Laboratory Tests 01/30/19 15:41 Red Blood Count 4.82, Mean Corpuscular Volume 89.2, Mean Corpuscular Hemoglobin 28.0, Mean Corpuscular Hemoglobin Concent 31.4 L, Red Cell Distribution Width 14.7 H, Neutrophils (%) (Auto) 71.7 H, Lymphocytes (%) (Auto) 20.0 L, Monocytes (%) (Auto) 4.8, Eosinophils (%) (Auto) 2.3, Basophils (%) (Auto) 0.4, Neutrophils # (Auto) 8.4 H, Lymphocytes # (Auto) 2.4, Monocytes # (Auto) 0.6, Eosinophils # (Auto) 0.3, Basophils # (Auto) 0.1 Microbiology Microbiology 01/30/19 Blood Culture, Received Pending 01/30/19 Blood Culture, Received Pending 01/30/19 Gastrointestinal Tract Panel (PCR) - Final, Complete BRENT RIVERA MD Jan 31, 2019 08:39
[2019-01-31] MEDS: OMEPRAZOLE 20 MG CAP PO SCH (11:10)
[2019-01-31] MEDS: FERROUS SULFATE 325MG TAB PO SCH (11:10)
[2019-01-31] MEDS: DOCUSATE SODIUM 100 MG CAP PO SCH ×2 (11:10→22:13)
[2019-01-31] MEDS: MONTELUKAST 10 MG TAB PO SCH (11:11)
[2019-01-31] MEDS: risperiDONE 2 MG TAB PO SCH ×2 (11:11→22:14)
[2019-01-31] MEDS: FAMOTIDINE 20 MG TAB PO SCH (11:11)
[2019-01-31] MEDS: SERTRALINE HCL 50 MG TAB PO SCH (11:11)
[2019-01-31] MEDS: LISINOPRIL 20 MG TAB PO SCH (11:11)
[2019-01-31] MEDS: ENOXAPARIN 40 MG/0.4 ML SYRINGE (J1650) SC SCH (11:12)
[2019-01-31] MEDS: LEVOTHYROXINE 25MCG TABLET (0.025MG) PO SCH (13:04)
[2019-01-31] MEDS: MELOXICAM (MOBIC) 7.5 MG TAB PO SCH (13:04)
[2019-01-31 20:00] VITALS: BP 161/82
[2019-01-31] MEDS: ATORVASTATIN 5MG PER 1/2 TABLET PO SCH (22:14)
[2019-01-31] MEDS: traZODone 50 MG TAB PO SCH (22:15)
[2019-02-01] MEDS: ACETAMINOPHEN TAB 650MG DOSE (2X325MG) PO PRN ×3 (04:51→20:37)
[2019-02-01] MEDS: PIPERACILLIN/TAZOBACTAM SOD 3.375 GM in D5W MINI-BAG PLUS 50 ML IV SCH ×4 (05:29→23:02)
[2019-02-01] MEDS: LEVOTHYROXINE 25MCG TABLET (0.025MG) PO SCH (05:29)
[2019-02-01 06:19] VITALS: BP 134/75
[2019-02-01] MEDS: ENOXAPARIN 40 MG/0.4 ML SYRINGE (J1650) SC SCH (09:40)
[2019-02-01] MEDS: DOCUSATE SODIUM 100 MG CAP PO SCH ×2 (09:40→20:36)
[2019-02-01] MEDS: risperiDONE 2 MG TAB PO SCH ×2 (09:40→20:36)
[2019-02-01] MEDS: OMEPRAZOLE 20 MG CAP PO SCH (09:40)
[2019-02-01] MEDS: FAMOTIDINE 20 MG TAB PO SCH (09:40)
[2019-02-01] MEDS: FERROUS SULFATE 325MG TAB PO SCH (09:40)
[2019-02-01] MEDS: MONTELUKAST 10 MG TAB PO SCH (09:41)
[2019-02-01] MEDS: MELOXICAM (MOBIC) 7.5 MG TAB PO SCH (09:41)
[2019-02-01] MEDS: SERTRALINE HCL 50 MG TAB PO SCH (09:42)
[2019-02-01] MEDS: LISINOPRIL 20 MG TAB PO SCH (09:42)
[2019-02-01 14:00] VITALS: BP 124/68
--- NOTE | 2019-02-01 17:36 | ECGEPIP ---
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
--- NOTE | 2019-02-01 19:43 | IPNPDOC ---
Subjective Date Seen The patient was seen on 02/01/19. Subjective Chief Complaint/HPI The patient complaints of chest pain radiating to the neck. Diarrhea has resolved. No fever, chills, nausea, vomiting, or diarrhea. No shortness of breath. General: Reports: Fatigue Constitutional: Denies: Chills, Fever, Malaise, Night Sweats, Weakness, Fatigue, Weight Loss, Lethargy, Other Eyes: Denies: Pain, Vision change, Conjunctivae inflammation, Eyelid inflammation, Redness, Other ENT: Denies: Head Aches, Ear Pain, Dysphagia, Sinus Congestion, Post Nasal Drip, Sore Throat, Epistaxis, Other Symptoms Skin: Denies: Rash, Lesions, Jaundice, Bruising, Itching, Dry, Breakdown, Nail Changes, Other Pulmonary: Denies: Dyspnea, Cough, Pleuritic Chest Pain, Other Symptoms Cardiovascular: Reports: Chest Pain Gastrointestinal: Denies: Nausea, Vomiting, Abdominal Pain, Diarrhea, Constipation, Melena, Hematochezia, Other Symptoms Genitourinary: Denies: Dysuria, Frequency, Incontinence, Hematuria, Retention, Other Symptoms Hematologic: Denies: Bruising, Bleeding Excessively, Petecchia, Purpura, Enlarged Lymph Nodes, Other Hematologic Endocrine: Denies: Polydipsia, Polyphagia, Polyuria, Heat Intolerance, Cold Intolerance, Other Endocrine Sx Musculoskeletal: Denies: Neck Pain, Back Pain, Shoulder Pain, Arm Pain, Hand Pain, Leg Pain, Foot Pain, Joint Pain, Muscle Pain, Spasms, Other Symptoms Neurological: Denies: Weakness, Numbness, Incoordination, Change in speech, Confusion, Seizures, Other Symptoms Psych: Denies: Mood Normal, Anxiety, Depression, Memory Issues, Thoughts of Self Harm, Anger, Thoughts of Harming Other, Other Psych Objective Physical Examination General Exam: Positive: Alert, Cooperative Eye Exam: Positive: PERRLA, Conjunctiva & lids normal ENT Exam: Positive: Atraumatic, Mucous membr. moist/pink Neck Exam: Positive: Supple Chest Exam: Positive: Clear to auscultation Heart Exam: Positive: Rate Normal Telemetry: Positive: No significant arrhythmia Abdomen Exam: Positive: Normal bowel sounds Extremity Exam: Positive: Other (no edema) Skin Exam: Positive: Nl turgor and temperature Neuro Exam: Positive: Normal Speech Psych Exam: Positive: Mood NL Assessment /Plan Assessment # Hypovolemic shock with severe hypotension, severe diarrhea - Likely due to hypovolemia from diarrhea, and effects of her amlodipine and lisinopril which she had taken this morning. Improved with 2.7 liters of ns boluses to systolic pressure of 110mmHg. - TSH, prolactin wnl - Ct abd/pelvis: inflammatory / infectious changes. Likely gastroenteritis. Continue zosyn. # Chest pain - EKG shows no evidence of ischemia. Cycle trop x2. - Chest wall is not tender. # HLD, hypothyroidism, HTN - Cont. home meds - Hold BP meds given low BP # Bipolar disorder and borderline personality disorder. - Cont. mirtazapine and lamotrigine, sertraline. # History of COPD - The patient is not on any medications, nebulizers or inhalers at home. We will continue with Singulair at this point. # Gastroesophageal reflux disease (GERD). - Will continue with omeprazole. # Rheumatoid arthritis with some chronic pain. - resume home meds once stable - denies chronic steroid use to suspect adrenal insufficiency Diet: clears DVT prophylaxis: lovenox, compression stockings. Plan/VTE VTE Prophylaxis Ordered?: Yes VS, I&O, 24H, Fishbone Vital Signs/I&O Vital Signs Date Time Temp Pulse Resp B/P (MAP) Pulse Ox O2 Delivery O2 Flow Rate FiO2 02/01/19 14:00 99.1 84 18 124/68 (86) 95 01/31/19 10:30 Room Air 01/30/19 22:43 3.0 I&O- Last 24 Hours up to 6 AM 02/01/19 06:00 Intake Total 780 ml Output Total 850 ml Balance -70 ml Laboratory Data 24H LABS Laboratory Tests 2 02/01/19 14:40: Troponin I < 0.02 Microbiology Microbiology 01/30/19 Blood Culture - Preliminary, Resulted No Growth after 48 hours. All Specime... 01/30/19 Blood Culture - Preliminary, Resulted No Growth after 48 hours. All Specime... 01/30/19 Gastrointestinal Tract Panel (PCR) - Final, Complete REEMA FIORE MD Feb 01, 2019 19:42
[2019-02-01 20:00] VITALS: BP 143/82
[2019-02-01] MEDS: traZODone 50 MG TAB PO SCH (20:36)
[2019-02-01] MEDS: ATORVASTATIN 5MG PER 1/2 TABLET PO SCH (20:36)
[2019-02-02 04:00] VITALS: BP 135/82
[2019-02-02] MEDS: LEVOTHYROXINE 25MCG TABLET (0.025MG) PO SCH (05:21)
[2019-02-02] MEDS: PIPERACILLIN/TAZOBACTAM SOD 3.375 GM in D5W MINI-BAG PLUS 50 ML IV SCH ×3 (05:21→18:29)
[2019-02-02 06:58] LABS: HEMATOCRIT 35.4 % (36.0-47.0); HEMOGLOBIN 11.5 g/dl (12.0-15.5); MEAN CORPUSCULAR HEMOGLOBIN 27.8 pg (27.0-33.0); MEAN CORPUSCULAR HGB CONC 32.5 g/dl (32.0-36.5); MEAN CORPUSCULAR VOLUME 85.7 fl (80.0-96.0); PLATELET COUNT, AUTOMATED 266 10^3/uL (150-450); RED BLOOD COUNT 4.13 10^6/uL (4.00-5.40); WHITE BLOOD COUNT 5.7 10^3/uL (4.0-10.0)
[2019-02-02 07:18] LABS: ALBUMIN 2.4 GM/DL (3.2-5.2); ALT/SGPT 11 U/L (12-78); BILIRUBIN,TOTAL 0.5 MG/DL (0.2-1.0); BLOOD UREA NITROGEN 8 MG/DL (7-18); CALCIUM LEVEL 8.9 MG/DL (8.8-10.2); CARBON DIOXIDE LEVEL 27 MEQ/L (21-32); CHLORIDE LEVEL 108 MEQ/L (98-107); CREATININE FOR GFR 0.46 MG/DL (0.55-1.30); GLOMERULAR FILTRATION RATE > 60.0 (>45); GLUCOSE, FASTING 81 MG/DL (70-100); POTASSIUM SERUM 3.4 MEQ/L (3.5-5.1); SODIUM LEVEL 141 MEQ/L (136-145); TOTAL PROTEIN 6.9 GM/DL (6.4-8.2)
[2019-02-02] MEDS: SERTRALINE HCL 50 MG TAB PO SCH (08:53)
[2019-02-02] MEDS: FAMOTIDINE 20 MG TAB PO SCH (08:53)
[2019-02-02] MEDS: MELOXICAM (MOBIC) 7.5 MG TAB PO SCH (08:53)
[2019-02-02] MEDS: FERROUS SULFATE 325MG TAB PO SCH (08:53)
[2019-02-02] MEDS: OMEPRAZOLE 20 MG CAP PO SCH (08:53)
[2019-02-02] MEDS: MONTELUKAST 10 MG TAB PO SCH (08:53)
[2019-02-02] MEDS: risperiDONE 2 MG TAB PO SCH ×2 (08:53→21:22)
[2019-02-02] MEDS: DOCUSATE SODIUM 100 MG CAP PO SCH ×2 (08:53→21:22)
[2019-02-02] MEDS: LISINOPRIL 20 MG TAB PO SCH (08:54)
[2019-02-02] MEDS: ENOXAPARIN 40 MG/0.4 ML SYRINGE (J1650) SC SCH (08:54)
[2019-02-02] MEDS ORDERED: NITROGLYCERIN 0.4 MG SUBL TABLET SL PRN (09:00)
[2019-02-02 14:00] VITALS: BP 136/76
--- NOTE | 2019-02-02 16:30 | IPNPDOC ---
Subjective Date Seen The patient was seen on 02/02/19. Subjective Chief Complaint/HPI The patient's chest pain has resolved. She does not have diarrhea any more. Denies a fever, chills, nausea, vomiting, or diarrhea. General: Denies: ROS Unobtainable, Chills, Night Sweats, Fatigue, Malaise, Normal Appetite, Other Symptoms Constitutional: Denies: Chills, Fever, Malaise, Night Sweats, Weakness, Fatigue, Weight Loss, Lethargy, Other Eyes: Denies: Pain, Vision change, Conjunctivae inflammation, Eyelid inflammation, Redness, Other ENT: Denies: Head Aches, Ear Pain, Dysphagia, Sinus Congestion, Post Nasal Drip, Sore Throat, Epistaxis, Other Symptoms Skin: Denies: Rash, Lesions, Jaundice, Bruising, Itching, Dry, Breakdown, Nail Changes, Other Pulmonary: Denies: Dyspnea, Cough, Pleuritic Chest Pain, Other Symptoms Cardiovascular: Denies: Chest Pain, Palpitations, Orthopnea, Paroxysmal Noc. Dyspnea, Edema, Lt Headedness, Other Symptoms Gastrointestinal: Denies: Nausea, Vomiting, Abdominal Pain, Diarrhea, Constipation, Melena, Hematochezia, Other Symptoms Genitourinary: Denies: Dysuria, Frequency, Incontinence, Hematuria, Retention, Other Symptoms Hematologic: Denies: Bruising, Bleeding Excessively, Petecchia, Purpura, Enlarged Lymph Nodes, Other Hematologic Endocrine: Denies: Polydipsia, Polyphagia, Polyuria, Heat Intolerance, Cold Intolerance, Other Endocrine Sx Musculoskeletal: Denies: Neck Pain, Back Pain, Shoulder Pain, Arm Pain, Hand Pain, Leg Pain, Foot Pain, Joint Pain, Muscle Pain, Spasms, Other Symptoms Neurological: Denies: Weakness, Numbness, Incoordination, Change in speech, Confusion, Seizures, Other Symptoms Psych: Denies: Mood Normal, Anxiety, Depression, Memory Issues, Thoughts of Self Harm, Anger, Thoughts of Harming Other, Other Psych Objective Physical Examination General Exam: Positive: Alert, Cooperative Eye Exam: Positive: PERRLA, Conjunctiva & lids normal ENT Exam: Positive: Atraumatic, Mucous membr. moist/pink Neck Exam: Positive: Supple Chest Exam: Positive: Clear to auscultation Heart Exam: Positive: Rate Normal Telemetry: Positive: No significant arrhythmia Abdomen Exam: Positive: Normal bowel sounds Extremity Exam: Positive: Other (no edema) Skin Exam: Positive: Nl turgor and temperature Neuro Exam: Positive: Normal Speech Psych Exam: Positive: Mood NL Assessment /Plan Assessment # Hypovolemic shock with severe hypotension, severe diarrhea - Likely due to hypovolemia from diarrhea, and effects of her amlodipine and lisinopril which she had taken this morning. Improved with 2.7 liters of ns boluses to systolic pressure of 110mmHg. - TSH, prolactin wnl - Ct abd/pelvis: inflammatory / infectious changes. Likely gastroenteritis. Continue zosyn. # Chest pain - EKG shows no evidence of ischemia. Cycle trop x2. - Chest wall is not tender. # HLD, hypothyroidism, HTN - Cont. home meds - Hold BP meds given low BP # Bipolar disorder and borderline personality disorder. - Cont. mirtazapine and lamotrigine, sertraline. # History of COPD - The patient is not on any medications, nebulizers or inhalers at home. We will continue with Singulair at this point. # Gastroesophageal reflux disease (GERD). - Will continue with omeprazole. # Rheumatoid arthritis with some chronic pain. - resume home meds once stable - denies chronic steroid use to suspect adrenal insufficiency Diet: clears DVT prophylaxis: lovenox, compression stockings. Disposition: waiting for the home child care provider system setup. Discharge tomorrow. Plan/VTE VTE Prophylaxis Ordered?: Yes VS, I&O, 24H, Fishbone Vital Signs/I&O Vital Signs Date Time Temp Pulse Resp B/P (MAP) Pulse Ox O2 Delivery O2 Flow Rate FiO2 02/02/19 14:00 97.7 76 18 136/76 (96) 95 01/31/19 10:30 Room Air 01/30/19 22:43 3.0 I&O- Last 24 Hours up to 6 AM 02/02/19 06:00 Intake Total 670 ml Output Total 1900 ml Balance -1230 ml Laboratory Data 24H LABS Laboratory Tests 2 02/01/19 20:22: Troponin I < 0.02 02/02/19 06:46: Nucleated Red Blood Cells % (auto) 0.0, Anion Gap 6L, Glomerular Filtration Rate > 60.0, Blood Urea Nitrogen 8, Creatinine 0.46L, Sodium Level 141, Potassium Level 3.4L, Chloride Level 108H, Carbon Dioxide Level 27, Calcium Level 8.9, Aspartate Amino Transf (AST/SGOT) 11, Alanine Aminotransferase (ALT/SGPT) 11L, Alkaline Phosphatase 110, Total Bilirubin 0.5, Total Protein 6.9, Albumin 2.4L, Albumin/Globulin Ratio 0.53L CBC/BMP Laboratory Tests 02/02/19 06:46 Red Blood Count 4.13, Mean Corpuscular Volume 85.7, Mean Corpuscular Hemoglobin 27.8, Mean Corpuscular Hemoglobin Concent 32.5, Red Cell Distribution Width 14.6 H, Calcium Level 8.9, Aspartate Amino Transf (AST/SGOT) 11, Alanine Aminotransferase (ALT/SGPT) 11 L, Alkaline Phosphatase 110, Total Bilirubin 0.5, Total Protein 6.9, Albumin 2.4 L Microbiology Microbiology 01/30/19 Blood Culture - Preliminary, Resulted No Growth after 72 hours. All specime... 01/30/19 Blood Culture - Preliminary, Resulted No Growth after 72 hours. All specime... 01/30/19 Gastrointestinal Tract Panel (PCR) - Final, Complete REEMA FIORE MD Feb 02, 2019 16:30
[2019-02-02 20:00] VITALS: BP 134/75
[2019-02-02] MEDS: traZODone 50 MG TAB PO SCH (21:22)
[2019-02-02] MEDS: ATORVASTATIN 5MG PER 1/2 TABLET PO SCH (21:22)
[2019-02-03] MEDS: PIPERACILLIN/TAZOBACTAM SOD 3.375 GM in D5W MINI-BAG PLUS 50 ML IV SCH ×3 (00:20→13:03)
[2019-02-03 06:00] VITALS: BP 172/73
[2019-02-03] MEDS: LEVOTHYROXINE 25MCG TABLET (0.025MG) PO SCH (06:21)
[2019-02-03 06:52] LABS: HEMATOCRIT 32.3 % (36.0-47.0); HEMOGLOBIN 10.7 g/dl (12.0-15.5); MEAN CORPUSCULAR HGB CONC 33.1 g/dl (32.0-36.5); MEAN CORPUSCULAR VOLUME 84.6 fl (80.0-96.0); PLATELET COUNT, AUTOMATED 290 10^3/uL (150-450); RED BLOOD COUNT 3.82 10^6/uL (4.00-5.40); WHITE BLOOD COUNT 4.7 10^3/uL (4.0-10.0)
[2019-02-03 07:15] LABS: ALBUMIN 2.2 GM/DL (3.2-5.2); ALT/SGPT 10 U/L (12-78); BILIRUBIN,TOTAL 0.4 MG/DL (0.2-1.0); BLOOD UREA NITROGEN 8 MG/DL (7-18); CALCIUM LEVEL 8.4 MG/DL (8.8-10.2); CARBON DIOXIDE LEVEL 27 MEQ/L (21-32); CHLORIDE LEVEL 107 MEQ/L (98-107); CREATININE FOR GFR 0.46 MG/DL (0.55-1.30); GLOMERULAR FILTRATION RATE > 60.0 (>45); GLUCOSE, FASTING 68 MG/DL (70-100); POTASSIUM SERUM 3.4 MEQ/L (3.5-5.1); SODIUM LEVEL 140 MEQ/L (136-145); TOTAL PROTEIN 6.3 GM/DL (6.4-8.2)
[2019-02-03] MEDS ORDERED: POTASSIUM CHLORIDE 10% LIQ 20 MEQ/15 ML UDC PO ONE (08:15)
[2019-02-03] MEDS: FAMOTIDINE 20 MG TAB PO SCH (08:19)
[2019-02-03] MEDS: OMEPRAZOLE 20 MG CAP PO SCH (08:19)
[2019-02-03] MEDS: ENOXAPARIN 40 MG/0.4 ML SYRINGE (J1650) SC SCH (08:20)
[2019-02-03] MEDS: MONTELUKAST 10 MG TAB PO SCH (08:20)
[2019-02-03] MEDS: MELOXICAM (MOBIC) 7.5 MG TAB PO SCH (08:20)
[2019-02-03] MEDS: FERROUS SULFATE 325MG TAB PO SCH (08:20)
[2019-02-03] MEDS: SERTRALINE HCL 50 MG TAB PO SCH (08:20)
[2019-02-03] MEDS: LISINOPRIL 20 MG TAB PO SCH (08:20)
[2019-02-03] MEDS: risperiDONE 2 MG TAB PO SCH ×2 (08:20→21:17)
[2019-02-03] MEDS: DOCUSATE SODIUM 100 MG CAP PO SCH ×2 (08:20→21:17)
[2019-02-03 11:52] VITALS: BP 160/88
[2019-02-03] MEDS ORDERED: NIFEdipine 30 MG XL TAB PO SCH (12:00)
--- NOTE | 2019-02-03 13:56 | IPNPDOC ---
Subjective Date Seen The patient was seen on 02/03/19. Subjective Chief Complaint/HPI The patient feels well. No chest pain. Diarrhea has resolved. No fevers, chills, nausea, vomiting, or diarrhea. General: Denies: ROS Unobtainable, Chills, Night Sweats, Fatigue, Malaise, Normal Appetite, Other Symptoms Constitutional: Denies: Chills, Fever, Malaise, Night Sweats, Weakness, Fatigue, Weight Loss, Lethargy, Other Eyes: Denies: Pain, Vision change, Conjunctivae inflammation, Eyelid inflammation, Redness, Other ENT: Denies: Head Aches, Ear Pain, Dysphagia, Sinus Congestion, Post Nasal Drip, Sore Throat, Epistaxis, Other Symptoms Skin: Denies: Rash, Lesions, Jaundice, Bruising, Itching, Dry, Breakdown, Nail Changes, Other Pulmonary: Denies: Dyspnea, Cough, Pleuritic Chest Pain, Other Symptoms Cardiovascular: Denies: Chest Pain, Palpitations, Orthopnea, Paroxysmal Noc. D yspnea, Edema, Lt Headedness, Other Symptoms Gastrointestinal: Denies: Nausea, Vomiting, Abdominal Pain, Diarrhea, Constipation, Melena, Hematochezia, Other Symptoms Genitourinary: Denies: Dysuria, Frequency, Incontinence, Hematuria, Retention, Other Symptoms Hematologic: Denies: Bruising, Bleeding Excessively, Petecchia, Purpura, E nlarged Lymph Nodes, Other Hematologic Endocrine: Denies: Polydipsia, Polyphagia, Polyuria, Heat Intolerance, Cold Intolerance, Other Endocrine Sx Musculoskeletal: Denies: Neck Pain, Back Pain, Shoulder Pain, Arm Pain, Hand Pain, Leg Pain, Foot Pain, Joint Pain, Muscle Pain, Spasms, Other Symptoms Neurological: Denies: Weakness, Numbness, Incoordination, Change in speech, Confusion, Seizures, Other Symptoms Psych: Denies: Mood Normal, Anxiety, Depression, Memory Issues, Thoughts of Self Harm, Anger, Thoughts of Harming Other, Other Psych Objective Physical Examination General Exam: Positive: Alert, Cooperative Eye Exam: Positive: PERRLA, Conjunctiva & lids normal ENT Exam: Positive: Atraumatic, Mucous membr. moist/pink Neck Exam: Positive: Supple Chest Exam: Positive: Clear to auscultation Heart Exam: Positive: Rate Normal Telemetry: Positive: No significant arrhythmia Abdomen Exam: Positive: Normal bowel sounds Extremity Exam: Positive: Other (no edema) Skin Exam: Positive: Nl turgor and temperature Neuro Exam: Positive: Normal Speech Psych Exam: Positive: Mood NL Assessment /Plan Assessment # Hypovolemic shock with severe hypotension, severe diarrhea, bacterial enteri tis - Has resolved on IV hydration and IV zosyn. - Will stop zosyn as of today. - TSH, prolactin wnl - CT abd/pelvis: inflammatory / infectious changes. # Chest pain - EKG shows no evidence of ischemia. Cycle trop x2. - Chest wall is not tender. # HLD, hypothyroidism, HTN - Cont. home meds. Nifedipine ER 30 mg was added, given hypertension. # Bipolar disorder and borderline personality disorder. - Cont. mirtazapine and lamotrigine, sertraline. # History of COPD - The patient is not on any medications, nebulizers or inhalers at home. We will continue with Singulair at this point. # Gastroesophageal reflux disease (GERD). - Will continue with omeprazole. # Rheumatoid arthritis with some chronic pain. - resume home meds once stable - denies chronic steroid use to suspect adrenal insufficiency Diet: clears DVT prophylaxis: lovenox, compression stockings. Disposition: waiting for ARU's assessment. Plan/VTE VTE Prophylaxis Ordered?: Yes VS, I&O, 24H, Fishbone Vital Signs/I&O Vital Signs Date Time Temp Pulse Resp B/P (MAP) Pulse Ox O2 Delivery O2 Flow Rate FiO2 02/03/19 11:52 98.1 81 16 160/88 (112) 97 01/31/19 10:30 Room Air 01/30/19 22:43 3.0 l I&O- Last 24 Hours up to 6 AM 02/03/19 06:00 Intake Total 1150 ml Output Total 800 ml Balance 350 ml Laboratory Data 24H LABS Laboratory Tests 2 02/03/19 06:40: Nucleated Red Blood Cells % (auto) 0.0, Anion Gap 6L, Glomerular Filtration Rate > 60.0, Blood Urea Nitrogen 8, Creatinine 0.46L, Sodium Level 140, Potassium Level 3.4L, Chloride Level 107, Carbon Dioxide Level 27, Calcium Level 8.4L, Aspartate Amino Transf (AST/SGOT) 15, Alanine Aminotransferase (ALT/SGPT) 10L, Alkaline Phosphatase 101, Total Bilirubin 0.4, Total Protein 6.3L, Albumin 2.2L, Albumin/Globulin Ratio 0.54L CBC/BMP Laboratory Tests 02/03/19 06:40 Red Blood Count 3.82 L, Mean Corpuscular Volume 84.6, Mean Corpuscular Hemoglobin 28.0, Mean Corpuscular Hemoglobin Concent 33.1, Red Cell Distribution Width 14.6 H, Calcium Level 8.4 L, Aspartate Amino Transf (AST/SGOT) 15, Alanine Aminotransferase (ALT/SGPT) 10 L, Alkaline Phosphatase 101, Total Bilirubin 0.4, Total Protein 6.3 L, Albumin 2.2 L Microbiology Microbiology 01/30/19 Blood Culture - Preliminary, Resulted No Growth after 72 hours. All specime... 01/30/19 Blood Culture - Preliminary, Resulted No Growth after 72 hours. All specime... 01/30/19 Gastrointestinal Tract Panel (PCR) - Final, Complete REEMA FIORE MD Feb 03, 2019 13:56
[2019-02-03 15:02] VITALS: BP 158/86
[2019-02-03] MEDS ORDERED: VANCOMYCIN HCL 1,000 MG, VIAL MATE ADAPTER 1 EACH in D5W 250 ML IV ONE (17:15)
[2019-02-03] MEDS ORDERED: VANCOMYCIN HCL 500 MG in D5W MINI-BAG PLUS 100 ML IV ONE (19:00)
[2019-02-03] MEDS: traZODone 50 MG TAB PO SCH (21:17)
[2019-02-03] MEDS: ATORVASTATIN 5MG PER 1/2 TABLET PO SCH (21:17)
[2019-02-03 22:00] VITALS: BP 155/84
--- NOTE | 2019-02-03 23:51 | PHACANCOPD ---
PHARMACY VANCOMYCIN DOSING Pt Demographics Demographics Patient Age:68 , Weight:68.700 , Gender: female Adjusted Body Weight Events Past 24 Hours Events Past 24 Hours: NO: Dialysis, Diuretic Therapy, Change in CrCl, Fever, Elevation in WBC, Pending Diagnostics, Pending Procedures, Other Vancomycin Vancomycin indication: UNK Vancomycin Target Ranges: 10-20 mcg/ml Vancomycin Load Y/N: Yes Load Dose Date Time Vancomycin Load Dose: 1.5GM Date: 02/03/19 Time: 18:00 Vancomycin Dose Date: 02/04/19. Current Vancomycin Dose: [1GM IV Q12H (start @08:00] Intermittent Dosing?: No Labs Labs Laboratory Tests 02/03/19 06:40 Red Blood Count 3.82 L, Mean Corpuscular Volume 84.6, Mean Corpuscular Hemoglobin 28.0, Mean Corpuscular Hemoglobin Concent 33.1, Red Cell Distribution Width 14.6 H, Calcium Level 8.4 L, Aspartate Amino Transf (AST/SGOT) 15, Alanine Aminotransferase (ALT/SGPT) 10 L, Alkaline Phosphatase 101, Total Bilirubin 0.4, Total Protein 6.3 L, Albumin 2.2 L Micro Microbiology 01/30/19 Blood Culture - Preliminary, Resulted No Growth after 72 hours. All specime... 01/30/19 Blood Culture - Preliminary, Resulted 01/30/19 Gastrointestinal Tract Panel (PCR) - Final, Complete Creatinine Clearance Date:02/03/19. Creatinine Clearance: [>60ml/min]. Assessment and Plan Maintaining Current Dose?: Yes Reason for dose change: No Dose Change Pharmacist Note Pharmacist Note Date: 02/03/19. PharmD note: LOADED WITH VANCOMYCIN 1.5GM IV FROM 18:00-20:30hrs. WE WILL CONTINUE ORDERED BY THE HOSPITALIST WITH 1GM IV Q12H STARTING AT 08:00 02/04/19. A VANCO TROUGH WILL BE ORDERED WHEN AT [facility] Feb 03, 2019 23:51
[2019-02-04 06:00] VITALS: BP 151/83
[2019-02-04] MEDS: LEVOTHYROXINE 25MCG TABLET (0.025MG) PO SCH (06:04)
[2019-02-04 07:06] LABS: HEMATOCRIT 33.2 % (36.0-47.0); HEMOGLOBIN 10.8 g/dl (12.0-15.5); MEAN CORPUSCULAR HEMOGLOBIN 27.3 pg (27.0-33.0); MEAN CORPUSCULAR HGB CONC 32.5 g/dl (32.0-36.5); MEAN CORPUSCULAR VOLUME 84.1 fl (80.0-96.0); PLATELET COUNT, AUTOMATED 321 10^3/uL (150-450); RED BLOOD COUNT 3.95 10^6/uL (4.00-5.40); WHITE BLOOD COUNT 4.7 10^3/uL (4.0-10.0)
[2019-02-04 07:39] LABS: ALBUMIN 2.3 GM/DL (3.2-5.2); ALT/SGPT 11 U/L (12-78); BILIRUBIN,TOTAL 0.2 MG/DL (0.2-1.0); BLOOD UREA NITROGEN 5 MG/DL (7-18); CALCIUM LEVEL 8.6 MG/DL (8.8-10.2); CARBON DIOXIDE LEVEL 27 MEQ/L (21-32); CHLORIDE LEVEL 107 MEQ/L (98-107); CREATININE FOR GFR 0.45 MG/DL (0.55-1.30); GLOMERULAR FILTRATION RATE > 60.0 (>45); GLUCOSE, FASTING 77 MG/DL (70-100); POTASSIUM SERUM 3.5 MEQ/L (3.5-5.1); SODIUM LEVEL 141 MEQ/L (136-145); TOTAL PROTEIN 6.5 GM/DL (6.4-8.2)
[2019-02-04] MEDS ORDERED: NIFEdipine 30 MG XL TAB PO SCH (09:00)
[2019-02-04] MEDS: DOCUSATE SODIUM 100 MG CAP PO SCH ×2 (09:19→20:32)
[2019-02-04] MEDS: LISINOPRIL 20 MG TAB PO SCH (09:25)
[2019-02-04] MEDS: VANCOMYCIN HCL 1,000 MG, VIAL MATE ADAPTER 1 EACH in D5W 250 ML IV SCH ×2 (09:25→20:32)
[2019-02-04] MEDS: MONTELUKAST 10 MG TAB PO SCH (09:25)
[2019-02-04] MEDS: SERTRALINE HCL 50 MG TAB PO SCH (09:26)
[2019-02-04] MEDS: OMEPRAZOLE 20 MG CAP PO SCH (09:26)
[2019-02-04] MEDS: FERROUS SULFATE 325MG TAB PO SCH (09:26)
[2019-02-04] MEDS: FAMOTIDINE 20 MG TAB PO SCH (09:26)
[2019-02-04] MEDS: MELOXICAM (MOBIC) 7.5 MG TAB PO SCH (09:26)
[2019-02-04] MEDS: risperiDONE 2 MG TAB PO SCH ×2 (09:26→20:32)
[2019-02-04] MEDS: ENOXAPARIN 40 MG/0.4 ML SYRINGE (J1650) SC SCH (09:27)
[2019-02-04 14:00] VITALS: BP 134/79
--- NOTE | 2019-02-04 14:27 | IPNPDOC ---
Subjective Date Seen The patient was seen on 02/04/19. Subjective Chief Complaint/HPI The patient had diarrhea this morning. No diarrhea two days ago or yesterday. She feels well. No other complaints. Denies a fever, chills, nausea, vomiting. General: Denies: ROS Unobtainable, Chills, Night Sweats, Fatigue, Malaise, Normal Appetite, Other Symptoms Constitutional: Denies: Chills, Fever, Malaise, Night Sweats, Weakness, Fatigue, Weight Loss, Lethargy, Other Eyes: Denies: Pain, Vision change, Conjunctivae inflammation, Eyelid inflammation, Redness, Other ENT: Denies: Head Aches, Ear Pain, Dysphagia, Sinus Congestion, Post Nasal Drip, Sore Throat, Epistaxis, Other Symptoms Skin: Denies: Rash, Lesions, Jaundice, Bruising, Itching, Dry, Breakdown, Nail Changes, Other Pulmonary: Denies: Dyspnea, Cough, Pleuritic Chest Pain, Other Symptoms Cardiovascular: Denies: Chest Pain, Palpitations, Orthopnea, Paroxysmal Noc. Dyspnea, Edema, Lt Headedness, Other Symptoms Gastrointestinal: Reports: Diarrhea Genitourinary: Denies: Dysuria, Frequency, Incontinence, Hematuria, Retention, Other Symptoms Hematologic: Denies: Bruising, Bleeding Excessively, Petecchia, Purpura, Enlarged Lymph Nodes, Other Hematologic Endocrine: Denies: Polydipsia, Polyphagia, Polyuria, Heat Intolerance, Cold Int olerance, Other Endocrine Sx Musculoskeletal: Denies: Neck Pain, Back Pain, Shoulder Pain, Arm Pain, Hand Pain, Leg Pain, Foot Pain, Joint Pain, Muscle Pain, Spasms, Other Symptoms Neurological: Denies: Weakness, Numbness, Incoordination, Change in speech, Confusion, Seizures, Other Symptoms Psych: Denies: Mood Normal, Anxiety, Depression, Memory Issues, Thoughts of Self Harm, Anger, Thoughts of Harming Other, Other Psych Objective Physical Examination General Exam: Positive: Alert, Cooperative Eye Exam: Positive: PERRLA, Conjunctiva & lids normal ENT Exam: Positive: Atraumatic, Mucous membr. moist/pink Neck Exam: Positive: Supple Chest Exam: Positive: Clear to auscultation Heart Exam: Positive: Rate Normal Telemetry: Positive: No significant arrhythmia Abdomen Exam: Positive: Normal bowel sounds Extremity Exam: Positive: Other (no edema) Skin Exam: Positive: Nl turgor and temperature Neuro Exam: Positive: Normal Speech Psych Exam: Positive: Mood NL Assessment /Plan Assessment # Hypovolemic shock with severe hypotension, severe diarrhea, bacterial enteritis - Has resolved on IV hydration and IV zosyn. She had one time diarrhea today. - TSH, prolactin wnl - CT abd/pelvis: inflammatory / infectious changes. # Positive blood culture - on 01/30/2019, she had two blood cultures drawn. One is positive for gram (+) rods. Vancomycin was started in the meantime. Will follow the culture. - Clinically, she is doing well. # Chest pain - EKG shows no evidence of ischemia. Cycle trop x2. - Chest wall is not tender. # HLD, hypothyroidism, HTN - Cont. home meds. Nifedipine ER 30 mg was added, given hypertension. # Bipolar disorder and borderline personality disorder. - Cont. mirtazapine and lamotrigine, sertraline. # History of COPD - The patient is not on any medications, nebulizers or inhalers at home. We will continue with Singulair at this point. # Gastroesophageal reflux disease (GERD). - Continue with omeprazole. # Rheumatoid arthritis with some chronic pain. - resume home meds once stable - denies chronic steroid use to suspect adrenal insufficiency Diet: clears DVT prophylaxis: lovenox, compression stockings. Plan/VTE VTE Prophylaxis Ordered?: Yes VS, I&O, 24H, Fishbone Vital Signs/I&O Vital Signs Date Time Temp Pulse Resp B/P (MAP) Pulse Ox O2 Delivery O2 Flow Rate FiO2 02/04/19 09:25 132/68 02/04/19 06:00 98.9 65 18 95 01/31/19 10:30 Room Air 01/30/19 22:43 3.0 I&O- Last 24 Hours up to 6 AM 02/04/19 06:00 Intake Total 610 ml Output Total 3350 ml Balance -2740 ml Laboratory Data 24H LABS Laboratory Tests 2 02/04/19 06:44: Nucleated Red Blood Cells % (auto) 0.0, Anion Gap 7L, Glomerular Filtration Rate > 60.0, Blood Urea Nitrogen 5L, Creatinine 0.45L, Sodium Level 141, Potassium Level 3.5, Chloride Level 107, Carbon Dioxide Level 27, Calcium Level 8.6L, Aspartate Amino Transf (AST/SGOT) 15, Alanine Aminotransferase (ALT/SGPT) 11L, Alkaline Phosphatase 101, Total Bilirubin 0.2, Total Protein 6.5, Albumin 2.3L, Albumin/Globulin Ratio 0.55L CBC/BMP Laboratory Tests 02/04/19 06:44 Red Blood Count 3.95 L, Mean Corpuscular Volume 84.1, Mean Corpuscular Hemoglobin 27.3, Mean Corpuscular Hemoglobin Concent 32.5, Red Cell Distribution Width 14.4, Calcium Level 8.6 L, Aspartate Amino Transf (AST/SGOT) 15, Alanine Aminotransferase (ALT/SGPT) 11 L, Alkaline Phosphatase 101, Total Bilirubin 0.2, Total Protein 6.5, Albumin 2.3 L Microbiology Microbiology 02/04/19 Blood Culture, Received Pending 01/30/19 Blood Culture - Preliminary, Resulted No Growth after 72 hours. All specime... 01/30/19 Blood Culture - Preliminary, Resulted 01/30/19 Gastrointestinal Tract Panel (PCR) - Final, Complete REEMA FIORE MD Feb 04, 2019 14:27
[2019-02-04 20:09] VITALS: BP 144/80
[2019-02-04] MEDS: ATORVASTATIN 5MG PER 1/2 TABLET PO SCH (20:32)
[2019-02-04] MEDS: traZODone 50 MG TAB PO SCH (20:32)
[2019-02-05 06:00] VITALS: BP 144/99
[2019-02-05] MEDS: LEVOTHYROXINE 25MCG TABLET (0.025MG) PO SCH (06:00)
[2019-02-05 07:04] LABS: HEMATOCRIT 32.8 % (36.0-47.0); HEMOGLOBIN 10.7 g/dl (12.0-15.5); MEAN CORPUSCULAR HEMOGLOBIN 27.4 pg (27.0-33.0); MEAN CORPUSCULAR HGB CONC 32.6 g/dl (32.0-36.5); MEAN CORPUSCULAR VOLUME 84.1 fl (80.0-96.0); PLATELET COUNT, AUTOMATED 328 10^3/uL (150-450); WHITE BLOOD COUNT 4.8 10^3/uL (4.0-10.0)
[2019-02-05 07:25] LABS: ALBUMIN 2.4 GM/DL (3.2-5.2); ALT/SGPT 10 U/L (12-78); BILIRUBIN,TOTAL 0.2 MG/DL (0.2-1.0); BLOOD UREA NITROGEN 5 MG/DL (7-18); CALCIUM LEVEL 8.6 MG/DL (8.8-10.2); CARBON DIOXIDE LEVEL 28 MEQ/L (21-32); CHLORIDE LEVEL 108 MEQ/L (98-107); CREATININE FOR GFR 0.44 MG/DL (0.55-1.30); GLOMERULAR FILTRATION RATE > 60.0 (>45); GLUCOSE, FASTING 78 MG/DL (70-100); POTASSIUM SERUM 3.7 MEQ/L (3.5-5.1); SODIUM LEVEL 142 MEQ/L (136-145)
[2019-02-05] MEDS: VANCOMYCIN HCL 1,000 MG, VIAL MATE ADAPTER 1 EACH in D5W 250 ML IV SCH ×2 (08:50→21:11)
[2019-02-05] MEDS: DOCUSATE SODIUM 100 MG CAP PO SCH ×2 (08:51→21:11)
[2019-02-05] MEDS: NIFEdipine 30 MG XL TAB PO SCH (08:51)
[2019-02-05] MEDS: risperiDONE 2 MG TAB PO SCH ×2 (08:52→21:11)
[2019-02-05] MEDS: SERTRALINE HCL 50 MG TAB PO SCH (08:52)
[2019-02-05] MEDS: OMEPRAZOLE 20 MG CAP PO SCH (08:52)
[2019-02-05] MEDS: FERROUS SULFATE 325MG TAB PO SCH (08:52)
[2019-02-05] MEDS: MELOXICAM (MOBIC) 7.5 MG TAB PO SCH (08:52)
[2019-02-05] MEDS: MONTELUKAST 10 MG TAB PO SCH (08:52)
[2019-02-05] MEDS: FAMOTIDINE 20 MG TAB PO SCH (08:52)
[2019-02-05] MEDS: LISINOPRIL 20 MG TAB PO SCH (08:53)
[2019-02-05] MEDS: ENOXAPARIN 40 MG/0.4 ML SYRINGE (J1650) SC SCH (08:53)
--- NOTE | 2019-02-05 12:43 | IPNPDOC ---
Subjective Date Seen The patient was seen on 02/05/19. Subjective Chief Complaint/HPI The patient has no complaints. She can ambulate on the walker. She had a large BM yesterday, and today, no diarrhea. Denies a fever, chills, nausea, vomiting. Denies a fever, chills. General: Reports: Fatigue; Denies: ROS Unobtainable, Chills, Night Sweats, Malaise, Normal Appetite, Other Symptoms Constitutional: Denies: Chills, Fever, Malaise, Night Sweats, Weakness, Fatigue, Weight Loss, Lethargy, Other Eyes: Denies: Pain, Vision change, Conjunctivae inflammation, Eyelid inflammation, Redness, Other ENT: Denies: Head Aches, Ear Pain, Dysphagia, Sinus Congestion, Post Nasal Drip, Sore Throat, Epistaxis, Other Symptoms Skin: Denies: Rash, Lesions, Jaundice, Bruising, Itching, Dry, Breakdown, Nail Changes, Other Pulmonary: Denies: Dyspnea, Cough, Pleuritic Chest Pain, Other Symptoms Cardiovascular: Denies: Chest Pain, Palpitations, Orthopnea, Paroxysmal Noc. Dyspnea, Edema, Lt Headedness, Other Symptoms Gastrointestinal: Denies: Nausea, Vomiting, Abdominal Pain, Diarrhea, Constipation, Melena, Hematochezia, Other Symptoms Genitourinary: Denies: Dysuria, Frequency, Incontinence, Hematuria, Retention, Other Symptoms Hematologic: Denies: Bruising, Bleeding Excessively, Petecchia, Purpura, Enlarged Lymph Nodes, Other Hematologic Endocrine: Denies: Polydipsia, Polyphagia, Polyuria, Heat Intolerance, Cold Intolerance, Other Endocrine Sx Musculoskeletal: Denies: Neck Pain, Back Pain, Shoulder Pain, Arm Pain, Hand Pain, Leg Pain, Foot Pain, Joint Pain, Muscle Pain, Spasms, Other Symptoms Neurological: Denies: Weakness, Numbness, Incoordination, Change in speech, Confusion, Seizures, Other Symptoms Psych: Denies: Mood Normal, Anxiety, Depression, Memory Issues, Thoughts of Self Harm, Anger, Thoughts of Harming Other, Other Psych Objective Physical Examination General Exam: Positive: Alert, Cooperative Eye Exam: Positive: PERRLA, Conjunctiva & lids normal ENT Exam: Positive: Atraumatic, Mucous membr. moist/pink Neck Exam: Positive: Supple Chest Exam: Positive: Clear to auscultation Heart Exam: Positive: Rate Normal Telemetry: Positive: No significant arrhythmia Abdomen Exam: Positive: Normal bowel sounds Extremity Exam: Positive: Other (no edema) Skin Exam: Positive: Nl turgor and temperature Neuro Exam: Positive: Normal Speech Psych Exam: Positive: Mood NL Assessment /Plan Assessment # Hypovolemic shock with severe hypotension, severe diarrhea, bacterial enteritis - CT abd/pelvis: inflammatory / infectious changes. It has resolved on IV hydration and IV zosyn. - TSH, prolactin wnl # Positive blood culture - on 01/30/2019, she had two blood cultures drawn. One is positive for gram (+) rods. Vancomycin was started in the meantime. Will follow the culture. - Clinically, she is doing well, and this could be contamination. # Chest pain - EKG shows no evidence of ischemia. Cycle trop x2. - Chest wall is not tender. # HLD, hypothyroidism, HTN - Cont. home meds. Nifedipine ER 30 mg was added, increased to 60 mg, and increased to 90 mg today, given persistent hypertension. # Bipolar disorder and borderline personality disorder. - Cont. mirtazapine and lamotrigine, sertraline. # History of COPD - The patient is not on any medications, nebulizers or inhalers at home. We will continue with Singulair at this point. # Gastroesophageal reflux disease (GERD). - Continue with omeprazole. # Rheumatoid arthritis with some chronic pain. - resume home meds once stable - denies chronic steroid use to suspect adrenal insufficiency Diet: clears DVT prophylaxis: lovenox, compression stockings. Disposition: following blood culture, and possible social support Plan/VTE VTE Prophylaxis Ordered?: Yes VS, [facility]&O, [facility] Vital Signs/I&O Vital Signs Date Time Temp Pulse Resp B/P (MAP) Pulse Ox O2 Delivery O2 Flow Rate FiO2 02/05/19 08:53 144/99 02/05/19 06:00 98.5 75 18 96 01/31/19 10:30 Room Air 01/30/19 22:43 3.0 I&O- Last 24 Hours up to 6 AM 02/05/19 06:00 Intake Total 1370 ml Output Total 1700 ml Balance -330 ml Laboratory Data 24H LABS Laboratory Tests 2 02/05/19 06:29: Nucleated Red Blood Cells % (auto) 0.0, Anion Gap 6L, Glomerular Filtration Rate > 60.0, Blood Urea Nitrogen 5L, Creatinine 0.44L, Sodium Level 142, Potassium Level 3.7, Chloride Level 108H, Carbon Dioxide Level 28, Calcium Level 8.6L, Aspartate Amino Transf (AST/SGOT) 5L, Alanine Aminotransferase (ALT/SGPT) 10L, Alkaline Phosphatase 98, Total Bilirubin 0.2, Total Protein 6.0L, Albumin 2.4L, Albumin/Globulin Ratio 0.67L CBC/BMP Laboratory Tests 02/05/19 06:29 Red Blood Count 3.90 L, Mean Corpuscular Volume 84.1, Mean Corpuscular Hemoglobin 27.4, Mean Corpuscular Hemoglobin Concent 32.6, Red Cell Distribution Width 14.6 H, Calcium Level 8.6 L, Aspartate Amino Transf (AST/SGOT) 5 L, Alanine Aminotransferase (ALT/SGPT) 10 L, Alkaline Phosphatase 98, Total Bilirubin 0.2, Total Protein 6.0 L, Albumin 2.4 L Microbiology Microbiology 02/04/19 Blood Culture - Preliminary, Resulted No growth after 24 hours . All specim... 01/30/19 Blood Culture - Final, Complete NO GROWTH AFTER 5 DAYS 01/30/19 Blood Culture - Preliminary, Resulted 01/30/19 Gastrointestinal Tract Panel (PCR) - Final, Complete REEMA FIORE MD Feb 05, 2019 12:43
[2019-02-05 14:00] VITALS: BP 109/65
[2019-02-05] MEDS: ATORVASTATIN 5MG PER 1/2 TABLET PO SCH (21:11)
[2019-02-05] MEDS: traZODone 50 MG TAB PO SCH (21:11)
[2019-02-05 22:00] VITALS: BP 126/66
[2019-02-06 06:00] VITALS: BP 136/91
[2019-02-06 06:11] VITALS: BP 136/91
[2019-02-06] MEDS: LEVOTHYROXINE 25MCG TABLET (0.025MG) PO SCH (06:24)
[2019-02-06 08:01] LABS: HEMATOCRIT 36.1 % (36.0-47.0); HEMOGLOBIN 11.7 g/dl (12.0-15.5); MEAN CORPUSCULAR HEMOGLOBIN 27.3 pg (27.0-33.0); MEAN CORPUSCULAR HGB CONC 32.4 g/dl (32.0-36.5); MEAN CORPUSCULAR VOLUME 84.1 fl (80.0-96.0); PLATELET COUNT, AUTOMATED 377 10^3/uL (150-450); RED BLOOD COUNT 4.29 10^6/uL (4.00-5.40); WHITE BLOOD COUNT 6.4 10^3/uL (4.0-10.0)
[2019-02-06 08:27] LABS: ALBUMIN 2.7 GM/DL (3.2-5.2); ALT/SGPT 14 U/L (12-78); BILIRUBIN,TOTAL 0.2 MG/DL (0.2-1.0); BLOOD UREA NITROGEN 5 MG/DL (7-18); CARBON DIOXIDE LEVEL 27 MEQ/L (21-32); CHLORIDE LEVEL 106 MEQ/L (98-107); CREATININE FOR GFR 0.41 MG/DL (0.55-1.30); GLOMERULAR FILTRATION RATE > 60.0 (>45); GLUCOSE, FASTING 87 MG/DL (70-100); POTASSIUM SERUM 3.6 MEQ/L (3.5-5.1); SODIUM LEVEL 139 MEQ/L (136-145); TOTAL PROTEIN 6.9 GM/DL (6.4-8.2)
--- NOTE | 2019-02-06 10:37 | IPNPDOC ---
Subjective Date Seen The patient was seen on 02/06/19. Subjective Chief Complaint/HPI Patient is comfortable in no apparent distress. Offers no new complaints General: Denies: ROS Unobtainable, Chills, Night Sweats, Fatigue, Malaise, Normal Appetite, Other Symptoms Constitutional: Denies: Chills, Fever, Malaise, Night Sweats, Weakness, Fatigue, Weight Loss, Lethargy, Other Eyes: Denies: Pain, Vision change, Conjunctivae inflammation, Eyelid inflammation, Redness, Other ENT: Denies: Head Aches, Ear Pain, Dysphagia, Sinus Congestion, Post Nasal Drip, Sore Throat, Epistaxis, Other Symptoms Skin: Denies: Rash, Lesions, Jaundice, Bruising, Itching, Dry, Breakdown, Nail Changes, Other Pulmonary: Denies: Dyspnea, Cough, Pleuritic Chest Pain, Other Symptoms Cardiovascular: Denies: Chest Pain, Palpitations, Orthopnea, Paroxysmal Noc. Dyspnea, Edema, Lt Headedness, Other Symptoms Gastrointestinal: Denies: Nausea, Vomiting, Abdominal Pain, Diarrhea, Co nstipation, Melena, Hematochezia, Other Symptoms Musculoskeletal: Denies: Neck Pain, Back Pain, Shoulder Pain, Arm Pain, Hand Pain, Leg Pain, Foot Pain, Joint Pain, Muscle Pain, Spasms, Other Symptoms Neurological: Denies: Weakness, Numbness, Incoordination, Change in speech, Confusion, Seizures, Other Symptoms Psych: Denies: Mood Normal, Anxiety, Depression, Memory Issues, Thoughts of Self Harm, Anger, Thoughts of Harming Other, Other Psych Objective Physical Examination General Exam: Positive: Alert, Cooperative Eye Exam: Positive: PERRLA, Conjunctiva & lids normal ENT Exam: Positive: Atraumatic, Mucous membr. moist/pink Neck Exam: Positive: Supple Chest Exam: Positive: Clear to auscultation Heart Exam: Positive: Rate Normal Telemetry: Positive: No significant arrhythmia Abdomen Exam: Positive: Normal bowel sounds Extremity Exam: Positive: Other (no edema) Skin Exam: Positive: Nl turgor and temperature Neuro Exam: Positive: Normal Speech Psych Exam: Positive: Mood NL Assessment /Plan Problems (1) Hypotension Status: Resolved (2) Generalized weakness Status: Acute (3) Pneumonia Status: Acute (4) Vomiting and diarrhea Status: Resolved Plan/VTE VTE Prophylaxis Ordered?: Yes Plan # Hypovolemic shock with severe hypotension, severe diarrhea, bacterial enteritis Resolved with IV hydration and IV antibiotics Possible transfer to subacute area facility when stable # Blood culture Blood cultures 48 hours are negative, possibly contamination in one bottle and earlier samples. DC vancomycin # Chest pain - EKG shows no evidence of ischemia. Cycle trop x2. - Chest wall is not tender. # HLD, hypothyroidism, HTN - Cont. home meds. Nifedipine ER 30 mg was added, increased to 60 mg, and increased to 90 mg today, given persistent hypertension. # Bipolar disorder and borderline personality disorder. - Cont. mirtazapine and lamotrigine, sertraline. # History of COPD - The patient is not on any medications, nebulizers or inhalers at home. We will continue with Singulair at this point. # Gastroesophageal reflux disease (GERD). - Continue with omeprazole. # Rheumatoid arthritis with some chronic pain. - resume home meds once stable - denies chronic steroid use to suspect adrenal insufficiency Diet: clears DVT prophylaxis: lovenox, compression stockings. Disposition: following blood culture, and possible social support VS, I&O, 24H, [facility] Vital Signs/I&O Vital Signs Date Time Temp Pulse Resp B/P (MAP) Pulse Ox O2 Delivery O2 Flow Rate FiO2 02/06/19 06:00 98.0 68 18 136/91 (106) 96 01/31/19 10:30 Room Air I&O- Last 24 Hours up to 6 AM 02/06/19 06:00 Intake Total 2400 ml Output Total 5550 ml Balance -3150 ml Laboratory Data 24H LABS Laboratory Tests 2 02/05/19 18:54: Vancomycin Level Trough 10.4 02/06/19 07:08: Nucleated Red Blood Cells % (auto) 0.0, Anion Gap 6L, Glomerular Filtration Rate > 60.0, Blood Urea Nitrogen 5L, Creatinine 0.41L, Sodium Level 139, Potassium Level 3.6, Chloride Level 106, Carbon Dioxide Level 27, Calcium Level 9.0, Aspartate Amino Transf (AST/SGOT) 22, Alanine Aminotransferase (ALT/SGPT) 14, Alkaline Phosphatase 110, Total Bilirubin 0.2, Total Protein 6.9, Albumin 2.7L, Albumin/Globulin Ratio 0.64L CBC/BMP Laboratory Tests 02/06/19 07:08 Red Blood Count 4.29, Mean Corpuscular Volume 84.1, Mean Corpuscular Hemoglobin 27.3, Mean Corpuscular Hemoglobin Concent 32.4, Red Cell Distribution Width 14.6 H, Calcium Level 9.0, Aspartate Amino Transf (AST/SGOT) 22, Alanine Aminotransferase (ALT/SGPT) 14, Alkaline Phosphatase 110, Total Bilirubin 0.2, Total Protein 6.9, Albumin 2.7 L Microbiology Microbiology 02/04/19 Blood Culture - Preliminary, Resulted No Growth after 48 hours. All Specime... 01/30/19 Blood Culture - Final, Complete NO GROWTH AFTER 5 DAYS 01/30/19 Blood Culture - Preliminary, Resulted 01/30/19 Gastrointestinal Tract Panel (PCR) - Final, Complete EVERARDO LOPEZ MD Feb 06, 2019 10:37
[2019-02-06] MEDS: FAMOTIDINE 20 MG TAB PO SCH (11:25)
[2019-02-06] MEDS: FERROUS SULFATE 325MG TAB PO SCH (11:25)
[2019-02-06] MEDS: SERTRALINE HCL 50 MG TAB PO SCH (11:25)
[2019-02-06] MEDS: MONTELUKAST 10 MG TAB PO SCH (11:25)
[2019-02-06 11:27] VITALS: BP 124/78
[2019-02-06] MEDS: risperiDONE 2 MG TAB PO SCH ×2 (11:27→20:30)
[2019-02-06] MEDS: NIFEdipine 30 MG XL TAB PO SCH (11:27)
[2019-02-06] MEDS: OMEPRAZOLE 20 MG CAP PO SCH (11:27)
[2019-02-06] MEDS: DOCUSATE SODIUM 100 MG CAP PO SCH ×2 (11:27→20:30)
[2019-02-06] MEDS: MELOXICAM (MOBIC) 7.5 MG TAB PO SCH (11:27)
[2019-02-06] MEDS: ENOXAPARIN 40 MG/0.4 ML SYRINGE (J1650) SC SCH (11:28)
[2019-02-06] MEDS: LISINOPRIL 20 MG TAB PO SCH (11:29)
[2019-02-06 14:00] VITALS: BP 133/72
[2019-02-06] MEDS: ATORVASTATIN 5MG PER 1/2 TABLET PO SCH (20:30)
[2019-02-06] MEDS: traZODone 50 MG TAB PO SCH (20:31)
[2019-02-06 21:38] VITALS: BP 120/77
[2019-02-07] MEDS: LEVOTHYROXINE 25MCG TABLET (0.025MG) PO SCH (05:30)
[2019-02-07 06:31] LABS: HEMATOCRIT 38.2 % (36.0-47.0); HEMOGLOBIN 12.4 g/dl (12.0-15.5); MEAN CORPUSCULAR HGB CONC 32.5 g/dl (32.0-36.5); MEAN CORPUSCULAR VOLUME 86.2 fl (80.0-96.0); PLATELET COUNT, AUTOMATED 388 10^3/uL (150-450); RED BLOOD COUNT 4.43 10^6/uL (4.00-5.40); WHITE BLOOD COUNT 5.6 10^3/uL (4.0-10.0)
[2019-02-07 06:32] VITALS: BP 121/77
[2019-02-07 06:53] LABS: ALBUMIN 2.6 GM/DL (3.2-5.2); ALT/SGPT 21 U/L (12-78); BILIRUBIN,TOTAL 0.3 MG/DL (0.2-1.0); BLOOD UREA NITROGEN 5 MG/DL (7-18); CALCIUM LEVEL 8.9 MG/DL (8.8-10.2); CARBON DIOXIDE LEVEL 26 MEQ/L (21-32); CHLORIDE LEVEL 107 MEQ/L (98-107); CREATININE FOR GFR 0.52 MG/DL (0.55-1.30); GLOMERULAR FILTRATION RATE > 60.0 (>45); GLUCOSE, FASTING 82 MG/DL (70-100); POTASSIUM SERUM 3.9 MEQ/L (3.5-5.1); SODIUM LEVEL 140 MEQ/L (136-145)
[2019-02-07] MEDS: ENOXAPARIN 40 MG/0.4 ML SYRINGE (J1650) SC SCH (08:46)
[2019-02-07] MEDS: NIFEdipine 30 MG XL TAB PO SCH (08:46)
[2019-02-07] MEDS: FAMOTIDINE 20 MG TAB PO SCH (08:46)
[2019-02-07] MEDS: LISINOPRIL 20 MG TAB PO SCH (08:47)
[2019-02-07] MEDS: MONTELUKAST 10 MG TAB PO SCH (08:47)
[2019-02-07] MEDS: SERTRALINE HCL 50 MG TAB PO SCH (08:47)
[2019-02-07] MEDS: DOCUSATE SODIUM 100 MG CAP PO SCH ×2 (08:47→20:15)
[2019-02-07] MEDS: FERROUS SULFATE 325MG TAB PO SCH (08:47)
[2019-02-07] MEDS: OMEPRAZOLE 20 MG CAP PO SCH (08:47)
[2019-02-07] MEDS: risperiDONE 2 MG TAB PO SCH ×2 (08:47→20:16)
--- NOTE | 2019-02-07 11:02 | IPNPDOC ---
Subjective Date Seen The patient was seen on 02/07/19. Subjective Chief Complaint/HPI Patient comfortable, in no acute distress. Offers no complaints General: Denies: ROS Unobtainable, Chills, Night Sweats, Fatigue, Malaise, Normal Appetite, Other Symptoms Constitutional: Denies: Chills, Fever, Malaise, Night Sweats, Weakness, Fatigue, Weight Loss, Lethargy, Other Eyes: Denies: Pain, Vision change, Conjunctivae inflammation, Eyelid inflammation, Redness, Other ENT: Denies: Head Aches, Ear Pain, Dysphagia, Sinus Congestion, Post Nasal Dri p, Sore Throat, Epistaxis, Other Symptoms Skin: Denies: Rash, Lesions, Jaundice, Bruising, Itching, Dry, Breakdown, Nail Changes, Other Pulmonary: Denies: Dyspnea, Cough, Pleuritic Chest Pain, Other Symptoms Cardiovascular: Denies: Chest Pain, Palpitations, Orthopnea, Paroxysmal Noc. Dyspnea, Edema, Lt Headedness, Other Symptoms Gastrointestinal: Denies: Nausea, Vomiting, Abdominal Pain, Diarrhea, Constipation, Melena, Hematochezia, Other Symptoms Musculoskeletal: Denies: Neck Pain, Back Pain, Shoulder Pain, Arm Pain, Hand Pain, Leg Pain, Foot Pain, Joint Pain, Muscle Pain, Spasms, Other Symptoms Neurological: Denies: Weakness, Numbness, Incoordination, Change in speech, Confusion, Seizures, Other Symptoms Psych: Denies: Mood Normal, Anxiety, Depression, Memory Issues, Thoughts of Self Harm, Anger, Thoughts of Harming Other, Other Psych Objective Physical Examination General Exam: Positive: Alert, Cooperative Eye Exam: Positive: PERRLA, Conjunctiva & lids normal ENT Exam: Positive: Atraumatic, Mucous membr. moist/pink Neck Exam: Positive: Supple Chest Exam: Positive: Clear to auscultation Heart Exam: Positive: Rate Normal Telemetry: Positive: No significant arrhythmia Abdomen Exam: Positive: Normal bowel sounds Extremity Exam: Positive: Other (no edema) Skin Exam: Positive: Nl turgor and temperature Neuro Exam: Positive: Normal Speech Psych Exam: Positive: Mood NL Assessment /Plan Problems (1) Hypotension Status: Resolved Problem Text: Hypovolemic shock with severe hypotension, severe diarrhea, bacterial enteritis Resolved with IV hydration and IV antibiotics Awaiting transfer to subacute rehabilitation facility was the bed is available Blood cultures 48 hours are negative, possibly contamination in one bottle and earlier samples. DC vancomycin (2) Generalized weakness Status: Acute Problem Text: PT, OT in progress Transfer to subacute rehabilitation facility for muscle strength (3) Pneumonia Status: Resolved Problem Text: (4) Vomiting and diarrhea Status: Resolved Plan/VTE VTE Prophylaxis Ordered?: Yes VS, I&O, 24H, Fishbone Vital Signs/I&O Vital Signs Date Time Temp Pulse Resp B/P (MAP) Pulse Ox O2 Delivery O2 Flow Rate FiO2 02/07/19 08:47 121/77 02/07/19 06:32 98.0 84 20 97 I&O- Last 24 Hours up to 6 AM 02/07/19 06:00 Intake Total 1730 ml Output Total 3300 ml Balance -1570 ml Laboratory Data 24H LABS Laboratory Tests 2 02/07/19 06:09: Nucleated Red Blood Cells % (auto) 0.0, Anion Gap 7L, Glomerular Filtration Rate > 60.0, Blood Urea Nitrogen 5L, Creatinine 0.52L, Sodium Level 140, Potassium Level 3.9, Chloride Level 107, Carbon Dioxide Level 26, Calcium Level 8.9, Aspartate Amino Transf (AST/SGOT) 27, Alanine Aminotransferase (ALT/SGPT) 21, Alkaline Phosphatase 113, Total Bilirubin 0.3, Total Protein 7.0, Albumin 2.6L, Albumin/Globulin Ratio 0.59L CBC/BMP Laboratory Tests 02/07/19 06:09 Red Blood Count 4.43, Mean Corpuscular Volume 86.2, Mean Corpuscular Hemoglobin 28.0, Mean Corpuscular Hemoglobin Concent 32.5, Red Cell Distribution Width 14.8 H, Calcium Level 8.9, Aspartate Amino Transf (AST/SGOT) 27, Alanine Aminotransferase (ALT/SGPT) 21, Alkaline Phosphatase 113, Total Bilirubin 0.3, Total Protein 7.0, Albumin 2.6 L Microbiology Microbiology 02/04/19 Blood Culture - Preliminary, Resulted No Growth after 72 hours. All specime... 01/30/19 Blood Culture - Final, Complete NO GROWTH AFTER 5 DAYS 01/30/19 Blood Culture - Final, Complete Propionibacterium Acnes 01/30/19 Gastrointestinal Tract Panel (PCR) - Final, Complete EVERARDO LOPEZ MD Feb 07, 2019 11:02
[2019-02-07] MEDS: MELOXICAM (MOBIC) 7.5 MG TAB PO SCH (11:06)
[2019-02-07 14:00] VITALS: BP 121/76
[2019-02-07 14:04] VITALS: BP 121/76
[2019-02-07] MEDS: ATORVASTATIN 5MG PER 1/2 TABLET PO SCH (20:15)
[2019-02-07] MEDS: traZODone 50 MG TAB PO SCH (20:16)
[2019-02-07 21:12] VITALS: BP 119/75
[2019-02-08 06:35] VITALS: BP 119/74
[2019-02-08 06:39] LABS: HEMATOCRIT 38.6 % (36.0-47.0); HEMOGLOBIN 12.4 g/dl (12.0-15.5); MEAN CORPUSCULAR HEMOGLOBIN 27.9 pg (27.0-33.0); MEAN CORPUSCULAR HGB CONC 32.1 g/dl (32.0-36.5); MEAN CORPUSCULAR VOLUME 86.9 fl (80.0-96.0); PLATELET COUNT, AUTOMATED 400 10^3/uL (150-450); RED BLOOD COUNT 4.44 10^6/uL (4.00-5.40); WHITE BLOOD COUNT 5.5 10^3/uL (4.0-10.0)
[2019-02-08] MEDS: LEVOTHYROXINE 25MCG TABLET (0.025MG) PO SCH (06:50)
[2019-02-08 07:08] LABS: ALBUMIN 2.5 GM/DL (3.2-5.2); ALT/SGPT 24 U/L (12-78); BILIRUBIN,TOTAL 0.3 MG/DL (0.2-1.0); BLOOD UREA NITROGEN 7 MG/DL (7-18); CARBON DIOXIDE LEVEL 27 MEQ/L (21-32); CHLORIDE LEVEL 106 MEQ/L (98-107); GLOMERULAR FILTRATION RATE > 60.0 (>45); GLUCOSE, FASTING 81 MG/DL (70-100); POTASSIUM SERUM 4.1 MEQ/L (3.5-5.1); SODIUM LEVEL 139 MEQ/L (136-145)
[2019-02-08] MEDS: ENOXAPARIN 40 MG/0.4 ML SYRINGE (J1650) SC SCH (08:55)
[2019-02-08] MEDS: OMEPRAZOLE 20 MG CAP PO SCH (08:56)
[2019-02-08] MEDS: SERTRALINE HCL 50 MG TAB PO SCH (08:56)
[2019-02-08] MEDS: NIFEdipine 30 MG XL TAB PO SCH (08:56)
[2019-02-08] MEDS: MELOXICAM (MOBIC) 7.5 MG TAB PO SCH (08:56)
[2019-02-08] MEDS: MONTELUKAST 10 MG TAB PO SCH (08:56)
[2019-02-08] MEDS: FAMOTIDINE 20 MG TAB PO SCH (08:56)
[2019-02-08] MEDS: FERROUS SULFATE 325MG TAB PO SCH (08:56)
[2019-02-08] MEDS: risperiDONE 2 MG TAB PO SCH ×2 (08:57→21:21)
[2019-02-08] MEDS: DOCUSATE SODIUM 100 MG CAP PO SCH ×2 (08:57→21:21)
[2019-02-08] MEDS: LISINOPRIL 20 MG TAB PO SCH (08:57)
--- NOTE | 2019-02-08 10:39 | IPNPDOC ---
Subjective Date Seen The patient was seen on 02/08/19. Subjective Chief Complaint/HPI . Ms. Martinez offers no new complaints at the present time, awaiting placement General: Denies: ROS Unobtainable, Chills, Night Sweats, Fatigue, Malaise, Normal Appetite, Other Symptoms Constitutional: Denies: Chills, Fever, Malaise, Night Sweats, Weakness, Fatigue, Weight Loss, Lethargy, Other Eyes: Denies: Pain, Vision change, Conjunctivae inflammation, Eyelid inflammation, Redness, Other ENT: Denies: Head Aches, Ear Pain, Dysphagia, Sinus Congestion, Post Nasal Drip, Sore Throat, Epistaxis, Other Symptoms Skin: Denies: Rash, Lesions, Jaundice, Bruising, Itching, Dry, Breakdown, Nail Changes, Other Pulmonary: Denies: Dyspnea, Cough, Pleuritic Chest Pain, Other Symptoms Cardiovascular: Denies: Chest Pain, Palpitations, Orthopnea, Paroxysmal Noc. Dyspnea, Edema, Lt Headedness, Other Symptoms Gastrointestinal: Denies: Nausea, Vomiting, Abdominal Pain, Diarrhea, Constipation, Melena, Hematochezia, Other Symptoms Neurological: Denies: Weakness, Numbness, Incoordination, Change in speech, Confusion, Seizures, Other Symptoms Psych: Denies: Mood Normal, Anxiety, Depression, Memory Issues, Thoughts of Self Harm, Anger, Thoughts of Harming Other, Other Psych Objective Physical Examination General Exam: Positive: Alert, Cooperative Eye Exam: Positive: PERRLA, Conjunctiva & lids normal ENT Exam: Positive: Atraumatic, Mucous membr. moist/pink Neck Exam: Positive: Supple Chest Exam: Positive: Clear to auscultation Heart Exam: Positive: Rate Normal Telemetry: Positive: No significant arrhythmia Abdomen Exam: Positive: Normal bowel sounds Extremity Exam: Positive: Other (no edema) Skin Exam: Positive: Nl turgor and temperature Neuro Exam: Positive: Normal Speech Psych Exam: Positive: Mood NL Assessment /Plan Problems (1) Hypotension Status: Resolved Problem Text: Hypovolemic shock with severe hypotension, severe diarrhea, bacte rial enteritis Resolved with IV hydration and IV antibiotics Awaiting transfer to subacute rehabilitation facility was the bed is available Vancomycin was DC'd Patient is afebrile and asymptomatic Awaiting placement in rehabilitation center (2) Generalized weakness Status: Acute Problem Text: PT, OT in progress Transfer to subacute rehabilitation facility for muscle strength (3) Vomiting and diarrhea Status: Resolved Plan/VTE VTE Prophylaxis Ordered?: Yes VS, I&O, 24H, Fishbone Vital Signs/I&O Vital Signs Date Time Temp Pulse Resp B/P (MAP) Pulse Ox O2 Delivery O2 Flow Rate FiO2 02/08/19 08:57 119/74 02/08/19 06:37 97.6 70 20 96 I&O- Last 24 Hours up to 6 AM 02/08/19 06:00 Intake Total 2870 ml Output Total 1900 ml Balance 970 ml Laboratory Data 24H LABS Laboratory Tests 2 02/08/19 05:56: Nucleated Red Blood Cells % (auto) 0.0, Anion Gap 6L, Glomerular Filtration Rate > 60.0, Blood Urea Nitrogen 7, Creatinine 0.50L, Sodium Level 139, Potassium Level 4.1, Chloride Level 106, Carbon Dioxide Level 27, Calcium Level 9.0, Aspartate Amino Transf (AST/SGOT) 29, Alanine Aminotransferase (ALT/SGPT) 24, Alkaline Phosphatase 109, Total Bilirubin 0.3, Total Protein 7.0, Albumin 2.5L, Albumin/Globulin Ratio 0.56L CBC/BMP Laboratory Tests 02/08/19 05:56 Red Blood Count 4.44, Mean Corpuscular Volume 86.9, Mean Corpuscular Hemoglobin 27.9, Mean Corpuscular Hemoglobin Concent 32.1, Red Cell Distribution Width 15.0 H, Calcium Level 9.0, Aspartate Amino Transf (AST/SGOT) 29, Alanine Aminotransferase (ALT/SGPT) 24, Alkaline Phosphatase 109, Total Bilirubin 0.3, Total Protein 7.0, Albumin 2.5 L Microbiology Microbiology 02/04/19 Blood Culture - Preliminary, Resulted No Growth after 72 hours. All specime... 01/30/19 Blood Culture - Final, Complete NO GROWTH AFTER 5 DAYS 01/30/19 Blood Culture - Final, Complete Propionibacterium Acnes 01/30/19 Gastrointestinal Tract Panel (PCR) - Final, Complete EVERARDO LOPEZ MD Feb 08, 2019 10:39
[2019-02-08 13:53] VITALS: BP 119/73
[2019-02-08] MEDS: traZODone 50 MG TAB PO SCH (21:21)
[2019-02-08] MEDS: ATORVASTATIN 5MG PER 1/2 TABLET PO SCH (21:21)
[2019-02-08 22:00] VITALS: BP 103/64
[2019-02-09] MEDS: LEVOTHYROXINE 25MCG TABLET (0.025MG) PO SCH (05:55)
[2019-02-09 06:00] VITALS: BP 133/73
[2019-02-09] MEDS: LISINOPRIL 20 MG TAB PO SCH (09:00)
[2019-02-09 09:44] VITALS: BP 133/73
[2019-02-09] MEDS: NIFEdipine 30 MG XL TAB PO SCH (09:44)
[2019-02-09] MEDS: MELOXICAM (MOBIC) 7.5 MG TAB PO SCH (09:44)
[2019-02-09] MEDS: DOCUSATE SODIUM 100 MG CAP PO SCH (09:44)
[2019-02-09] MEDS: MONTELUKAST 10 MG TAB PO SCH (09:45)
[2019-02-09] MEDS: FAMOTIDINE 20 MG TAB PO SCH (09:45)
[2019-02-09] MEDS: FERROUS SULFATE 325MG TAB PO SCH (09:45)
[2019-02-09] MEDS: SERTRALINE HCL 50 MG TAB PO SCH (09:45)
[2019-02-09] MEDS: risperiDONE 2 MG TAB PO SCH (09:45)
[2019-02-09] MEDS: OMEPRAZOLE 20 MG CAP PO SCH (09:45)
[2019-02-09] MEDS: ENOXAPARIN 40 MG/0.4 ML SYRINGE (J1650) SC SCH (09:45)
[2019-02-09] MEDS ORDERED: NITR4TASL SL (10:18)
[2019-02-09] MEDS ORDERED: NIFE30TA7 PO (10:18)
--- NOTE | 2019-02-09 10:45 | DS.PDOC ---
Discharge Summary General Date of Admission Jan 30, 2019 at 17:39 Date of Discharge 02/09/19 Primary Care Physician: A Specialist/Consultants Involve: EVERARDO LOPEZ MD Discharge Summary PROCEDURES PERFORMED DURING STAY: None. ADMITTING DIAGNOSES: 1. Hypovolemic shock, bacterial enteritis generalized weakness. DISCHARGE DIAGNOSES: 1. Hypovolemic shock secondary to diarrhea, vomiting and bacterial enteritis with's generalized weakness. COMPLICATIONS/CHIEF COMPLAINT: Hypotension Due To Hypovolemia. HISTORY OF PRESENT ILLNESS: 68 year old female with past medical history significant for HTN, RA no on chronic steroids, bipolar, hypothyroidism, DM-diet controlled, peripheral arterial disease, Hiatal Hernia, GERD,dyslipidemia, personality disorder, bipolar disorder was in her usual state of health until this morning. Her home health Aide gave her a shower at home, then she went over to her friend's house from [place], felt funny, and asked her friend if she could sit down with dizziness, nausea, vomiting food emesis x2, and diarrhea watery , non bloody, nonmucusy large in amount with abdominal cramps. she denies any fevers, sick contacts, and had eaten her meals at home yesterday and this morning which she prepared. she denies well water, sorbitol or gum use, and has not had any other family or friends with similar symptoms. She had taken her norvasc and lisinopril this morning after breakfast, and presented to the emergency room with systolic blood pressure of 50mmHg, 5 episodes of explosive watery diarrhea, GI panel was negative. She denied any sob, chest pain, pressure tightness, cough, and c/o lightheadedness and dizziness. urine was mixed with copious amounts of diarrhea, and could not be measured after 2.7 liters of ivfluids with improvement in systolic blood pressure of [address] abd/pelvis: inflammatory / infectious changes. She has had no prior episodes, had a normal colonoscopy years ago, and denies taking any bowel regimen or laxatives. Pt also denies any chronic steroid use that could cause adrenal insufficiency. cardiac markers were unremarkable, and EKG was sinus at 79 without ischemia. Hospitalist was asked to admit for diarrhea, hypotension due to hypovolemia, and lactic acidosis as an inpatient for two midnights.. HOSPITAL COURSE: (1) Hypotension Hypovolemic shock with severe hypotension, severe diarrhea, bacterial enteritis Resolved with IV hydration and IV antibiotics Awaiting transfer to subacute rehabilitation facility was the bed is available Vancomycin was DC'd Patient is afebrile and asymptomatic Patient will be discharged [facility] today (2) Generalized weakness PT, OT in progress Transfer to subacute rehabilitation facility for muscle strength (3) Vomiting and diarrhea Resolved. DISCHARGE MEDICATIONS: Please see below. ALLERGIES: Please see below. PHYSICAL EXAMINATION ON DISCHARGE: VITAL SIGNS: Please see below. GENERAL: Within normal limits HEENT: PERRLA NECK: Supple CARDIOVASCULAR EXAMINATION: S1, S2, regular RESPIRATORY EXAMINATION: Clear to A&P ABDOMINAL EXAMINATION: , Soft, nontender. Once the present EXTREMITIES: No clubbing, cyanosis, edema SKIN: Normal NEUROLOGICAL EXAMINATION: No focal motor sensory deficit PSYCHIATRIC EXAMINATION: Normal LABORATORY DATA: Please see below. PROGNOSIS: Good ACTIVITY: As tolerated. DIET: As tolerated DISCHARGE PLAN: Discharge to [facility] today DISPOSITION: . [facility] DISCHARGE INSTRUCTIONS: 1. As above. ITEMS TO FOLLOWUP ON ON OUTPATIENT: 1. None. DISCHARGE CONDITION: Stable. TIME SPENT ON DISCHARGE: 38 minutes. Vital Signs/I&Os Vital Signs Date Time Temp Pulse Resp B/P (MAP) Pulse Ox O2 Delivery O2 Flow Rate FiO2 02/09/19 09:44 133/73 02/09/19 06:00 97.6 65 12 95 l I&O- Last 24 Hours up to 6 AM 02/09/19 06:00 Intake Total 1790 ml Output Total 1375 ml Balance 415 ml Microbiology Microbiology 02/04/19 Blood Culture - Final, Complete NO GROWTH AFTER 5 DAYS 01/30/19 Blood Culture - Final, Complete NO GROWTH AFTER 5 DAYS 01/30/19 Blood Culture - Final, Complete Propionibacterium Acnes 01/30/19 Gastrointestinal Tract Panel (PCR) - Final, Complete Discharge Medications Scheduled Atorvastatin Calcium (Lipitor) 10 Mg Tab, 5 MG PO QHS, (Reported) Docusate Sodium (Stool Softener) 100 Mg Capsule, 100 MG PO BID, (Reported) Ferrous Sulfate (Ferrous Sulfate) 325 Mg Tab, 325 MG PO DAILY, (Reported) Lamotrigine (Lamotrigine ER) 50 Mg Tab, 50 MG PO BID, (Reported) Levothyroxine Sodium (Levothyroxine Sodium) 25 Mcg Tab, 25 MCG PO DAILY, (Reported) Lisinopril (Lisinopril) 20 Mg Tab, 20 MG PO DAILY, (Reported) Meloxicam (Meloxicam) 15 Mg Tab, 7.5 MG PO DAILY, (Reported) Mirtazapine (Mirtazapine) 45 Mg Tab.rapdis, 45 MG PO QHS, (Reported) Montelukast Sodium (Montelukast Sodium) 10 Mg Tab, 10 MG PO DAILY for , (Reported) Nifedipine (Nifedipine ER) 30 Mg Tab.er.24, 90 MG PO DAILY Omeprazole (Omeprazole) 20 Mg Cap, 20 MG PO DAILY, (Reported) Ranitidine HCl (Ranitidine HCl) 300 Mg Capsule, 1 CAP PO DAILY, (Reported) Risperidone (Risperdal) 2 Mg Tab, 2 MG PO BID for , (Reported) Sertraline Hcl (Sertraline HCl) 50 Mg Tab, 50 MG PO DAILY, (Reported) Trazodone HCl (Trazodone HCl) 50 Mg Tablet, 50 MG PO QHS, (Reported) Scheduled PRN Acetaminophen (Acetaminophen) 325 Mg Tab, 650 MG PO Q4H PRN for PAIN, (Reported) Nitroglycerin (Nitrostat) 0.4 Mg Tab.subl, 0.4 MG SL Q5MP PRN for CHEST PAIN Allergies Coded Allergies: No Known Allergies (Verified , 12/11/17) EVERARDO LOPEZ MD Feb 09, 2019 10:45
== END 2019-02-09 10:55 | DRG 371 ==
LOC: EDBD 15:15 → M ED 15:15 → M ED INP 17:39 → M MS4PR 01-31 20:25 → M MS5PR 02-03 14:48
PROVIDERS: ADMIT General Practice; ATTEND Internal Medicine
DX: A04.9 Bacterial intestinal infection, unspecified (principal); R57.1 Hypovolemic shock; E87.2 Acidosis; I10 Essential (primary) hypertension; J44.9 Chronic obstructive pulmonary disease, unspecified; I95.9 Hypotension, unspecified; Z79.52 Long term (current) use of systemic steroids; M06.9 Rheumatoid arthritis, unspecified; F31.9 Bipolar disorder, unspecified; E03.9 Hypothyroidism, unspecified; E11.51 Type 2 diabetes mellitus with diabetic peripheral angiopathy without gangrene; K21.9 Gastro-esophageal reflux disease without esophagitis; E78.5 Hyperlipidemia, unspecified; K44.9 Diaphragmatic hernia without obstruction or gangrene; Z79.899 Other long term (current) drug therapy; F60.3 Borderline personality disorder; R29.6 Repeated falls; Z96.651 Presence of right artificial knee joint; Z96.652 Presence of left artificial knee joint; Z87.891 Personal history of nicotine dependence

== ENCOUNTER → 2019-02-10 | Outpatient (REF) ==
[~2019-02-10] MED LIST changes: +MIRT1TAB17 PO; +NIFE30TA7 PO; +NITR4TASL SL; +RANI15TA PO; +RANI300C PO; +STOO100C PO; +TRAZ-252 PO
== END ==
LOC: SKLAB4 07:25
DX: E03.9 Hypothyroidism, unspecified (principal); F32.9 Major depressive disorder, single episode, unspecified; M19.90 Unspecified osteoarthritis, unspecified site

== ENCOUNTER → 2019-03-03 | Outpatient (REF) | payer MEDICARE, MEDICAID ==
[~2019-03-03] MED LIST changes: +MM S100C PO; -OMEP20CA3 PO; +OMEP20CA4 PO; -STOO100C PO
== END ==
LOC: SKLAB4 11:22
DX: Z11.59 Encounter for screening for other viral diseases (principal); B95.62 Methicillin resistant Staphylococcus aureus infection as the cause of diseases classified elsewhere

== ENCOUNTER → 2019-03-23 | Outpatient (REF) | payer MEDICARE, MEDICAID | LOC: SKLAB3 07:00 | DX: Z86.14 Personal history of Methicillin resistant Staphylococcus aureus infection (principal) ==

== ENCOUNTER → 2019-03-30 | Outpatient (REF) | payer MEDICARE, MEDICAID | LOC: SKLAB3 14:41 | DX: Z86.14 Personal history of Methicillin resistant Staphylococcus aureus infection (principal) ==

== ENCOUNTER → 2019-04-04 | Outpatient (REF) | payer MEDICARE, MEDICAID | LOC: SKLAB3 08:57 | DX: E03.9 Hypothyroidism, unspecified (principal) ==

== ENCOUNTER → 2019-04-12 | Outpatient (REF) | payer MEDICARE, MEDICAID | LOC: SKLAB3 13:00 | DX: Z09 Encounter for follow-up examination after completed treatment for conditions other than malignant neoplasm (principal); Z86.14 Personal history of Methicillin resistant Staphylococcus aureus infection ==

== ENCOUNTER → 2019-07-04 | Outpatient (REF) | payer MEDICARE, MEDICAID ==
[~2019-07-04] MED LIST changes: -OMEP40CA2 PO; +OMEP40CA97 PO
[2019-07-04 09:43] LABS: HEMATOCRIT 44.5 % (36.0-47.0); HEMOGLOBIN 13.6 g/dl (12.0-15.5); MEAN CORPUSCULAR HEMOGLOBIN 28.7 pg (27.0-33.0); MEAN CORPUSCULAR HGB CONC 30.6 g/dl (32.0-36.5); MEAN CORPUSCULAR VOLUME 93.9 fl (80.0-96.0); PLATELET COUNT, AUTOMATED 141 10^3/uL (150-450); RED BLOOD COUNT 4.74 10^6/uL (4.00-5.40); WHITE BLOOD COUNT 7.4 10^3/uL (4.0-10.0)
[2019-07-04 09:59] LABS: ALBUMIN 2.6 GM/DL (3.2-5.2); ALT/SGPT 11 U/L (12-78); BILIRUBIN,TOTAL 0.2 MG/DL (0.2-1.0); BLOOD UREA NITROGEN 15 MG/DL (7-18); CALCIUM LEVEL 8.7 MG/DL (8.8-10.2); CARBON DIOXIDE LEVEL 26 MEQ/L (21-32); CHLORIDE LEVEL 108 MEQ/L (98-107); CREATININE FOR GFR 0.61 MG/DL (0.55-1.30); GLOMERULAR FILTRATION RATE > 60.0 (>45); GLUCOSE, FASTING 176 MG/DL (70-100); POTASSIUM SERUM 4.1 MEQ/L (3.5-5.1); SODIUM LEVEL 140 MEQ/L (136-145); TOTAL PROTEIN 6.9 GM/DL (6.4-8.2)
== END ==
LOC: SKLAB3 07:00
PROVIDERS: ATTEND Internal Medicine
DX: D64.9 Anemia, unspecified (principal); I10 Essential (primary) hypertension

== ENCOUNTER → 2019-08-04 | Outpatient (REF) | payer MEDICARE, MEDICAID ==
[~2019-08-04] MED LIST changes: -LAMO100T PO; +LAMO100T3 PO; +OMEP-172 PO; -OMEP20CA4 PO
== END ==
LOC: SKLAB3 11:23
PROVIDERS: ATTEND Internal Medicine
DX: D64.9 Anemia, unspecified (principal)

== ENCOUNTER → 2019-08-09 | Outpatient (REF) | payer MEDICARE, MEDICAID | LOC: SKLAB3 13:23 | PROVIDERS: ATTEND Internal Medicine | DX: D64.9 Anemia, unspecified (principal) ==

== ENCOUNTER → 2019-10-11 | Outpatient (REF) | payer MEDICARE, MEDICAID ==
[~2019-10-11] MED LIST changes: -MONT10TA2 PO; +MONT10TA4 PO; +NIFE1TAB52 PO; -NIFE30TA7 PO; -OMEP-172 PO; +OMEP1CAP73 PO; -TRAZ-163 PO; +TRAZ-257 PO
== END ==
LOC: SKLAB3 13:26
PROVIDERS: ATTEND Internal Medicine
DX: Z86.14 Personal history of Methicillin resistant Staphylococcus aureus infection (principal)

== ENCOUNTER → 2019-10-17 | Outpatient (REF) | payer MEDICARE, MEDICAID | LOC: SKLAB3 14:28 | PROVIDERS: ATTEND Internal Medicine | DX: Z86.14 Personal history of Methicillin resistant Staphylococcus aureus infection (principal) ==

== ENCOUNTER → 2019-10-24 | Outpatient (REF) | payer MEDICARE, MEDICAID | LOC: SKLAB3 10:37 | PROVIDERS: ATTEND Internal Medicine | DX: Z86.14 Personal history of Methicillin resistant Staphylococcus aureus infection (principal) ==

== ENCOUNTER → 2019-12-27 | Outpatient (REF) | LOC: SKLAB3 10:01 | PROVIDERS: ATTEND Internal Medicine | DX: Z03.818 Encounter for observation for suspected exposure to other biological agents ruled out (principal) ==

== ENCOUNTER → 2020-01-03 | Outpatient (REF) | payer MEDICARE, MEDICAID ==
[2020-01-03 09:01] LABS: HEMOGLOBIN 12.9 g/dl (12.0-15.5); MEAN CORPUSCULAR HEMOGLOBIN 30.4 pg (27.0-33.0); MEAN CORPUSCULAR HGB CONC 33.1 g/dl (32.0-36.5); PLATELET COUNT, AUTOMATED 369 10^3/uL (150-450); RED BLOOD COUNT 4.24 10^6/uL (4.00-5.40); WHITE BLOOD COUNT 7.7 10^3/uL (4.0-10.0)
[2020-01-03 09:32] LABS: BLOOD UREA NITROGEN 10 MG/DL (7-18); CALCIUM LEVEL 8.5 MG/DL (8.8-10.2); CARBON DIOXIDE LEVEL 28 MEQ/L (21-32); CHLORIDE LEVEL 109 MEQ/L (98-107); CREATININE FOR GFR 0.43 MG/DL (0.55-1.30); GLOMERULAR FILTRATION RATE > 60.0 (>39); GLUCOSE, FASTING 76 MG/DL (70-100); POTASSIUM SERUM 4.3 MEQ/L (3.5-5.1); SODIUM LEVEL 143 MEQ/L (136-145)
== END ==
LOC: SKLAB3 08:34
PROVIDERS: ATTEND Internal Medicine
DX: D64.9 Anemia, unspecified (principal); I10 Essential (primary) hypertension

== ENCOUNTER → 2020-01-31 | Outpatient (REF) | payer MEDICARE, MEDICAID ==
[~2020-01-31] MED LIST changes: -CLOT1CRE2 TOP; +CLOT1CRE56 TOP
[2020-01-31 09:30] LABS: CHOLESTEROL RISK RATIO 3.043 (<5)
== END ==
LOC: SKLAB3 07:59
PROVIDERS: ATTEND Internal Medicine
DX: E78.5 Hyperlipidemia, unspecified (principal)

== ENCOUNTER → 2020-06-19 | Outpatient (REF) | payer MEDICARE, MEDICAID ==
[~2020-06-19] MED LIST changes: -AMLO10TA5 PO; +AMLO1TAB25 PO
== END ==
LOC: M SFHCRHEU 10:26
PROVIDERS: ATTEND Internal Medicine
DX: M06.4 Inflammatory polyarthropathy (principal); M79.10 Myalgia, unspecified site

== ENCOUNTER → 2020-06-19 | Outpatient (REF) | payer MEDICARE, MEDICAID ==
[2020-06-19 13:23] LABS: APPEARANCE, URINE HAZY (CLEAR); BACTERIA, URINE AUTO NEGATIVE (NEGATIVE); BILIRUBIN, URINE AUTO NEGATIVE (NEGATIVE); BLOOD, URINE BLOOD 1+ (NEGATIVE); COLOR, URINE YELLOW (YELLOW); GLUCOSE, URINE (UA) AUTO NEGATIVE (NEGATIVE); KETONE, URINE AUTO NEGATIVE (NEGATIVE); LEUKOCYTE ESTERASE, URINE AUTO NEGATIVE (NEGATIVE); NITRITE, URINE AUTO NEGATIVE (NEGATIVE); PROTEIN, URINE AUTO NEGATIVE (NEGATIVE); RBC, URINE AUTO 4 /HPF (0-3); SQUAMOUS EPITHELIAL CELL UR AU 0 /HPF (0-6); UROBILINOGEN, URINE AUTO 0.2 mg/dL (0.0-2.0); WBC, URINE AUTO 1 /HPF (0-3)
[2020-06-19 13:42] LABS: CREATININE,RANDOM URINE 31.8 MG/DL
== END ==
LOC: SKLAB3 12:12
PROVIDERS: ATTEND Internal Medicine
DX: M06.9 Rheumatoid arthritis, unspecified (principal)
CPT/HCPCS: 81001; 82570; G0463

== ENCOUNTER → 2020-06-20 | Outpatient (REF) | payer MEDICARE, MEDICAID ==
[2020-06-20 07:36] LABS: ALBUMIN 2.9 GM/DL (3.2-5.2); ALT/SGPT 10 U/L (12-78); BILIRUBIN,DIRECT 0.2 MG/DL (0.0-0.2); BILIRUBIN,TOTAL 0.3 MG/DL (0.2-1.0); BLOOD UREA NITROGEN 11 MG/DL (7-18); C REACTIVE PROTEIN QUANTITATIV 2.16 MG/DL (0.00-0.30); CALCIUM LEVEL 9.1 MG/DL (8.8-10.2); CARBON DIOXIDE LEVEL 28 MEQ/L (21-32); CHLORIDE LEVEL 108 MEQ/L (98-107); CREATININE FOR GFR 0.43 MG/DL (0.55-1.30); GLOMERULAR FILTRATION RATE > 60.0 (>39); GLUCOSE, FASTING 87 MG/DL (70-100); MAGNESIUM LEVEL 2.2 MG/DL (1.8-2.4); PHOSPHORUS LEVEL 3.8 MG/DL (2.5-4.9); POTASSIUM SERUM 4.5 MEQ/L (3.5-5.1); RHEUMATOID FACTOR QUANT < 10.0 IU/ML (<15.0); SODIUM LEVEL 140 MEQ/L (136-145); TOTAL PROTEIN 6.9 GM/DL (6.4-8.2)
[2020-06-20 08:34] LABS: HEPATITIS B SURFACE ANTIBODY NEGATIVE (POSITIVE)
[2020-06-20 08:46] LABS: HEPATITIS B SURFACE ANTIGEN NEGATIVE (NEGATIVE)
[2020-06-20 09:14] LABS: HEPATITIS C VIRUS ABY INDEX 0.1 INDEX (<0.8)
[2020-06-20 11:02] LABS: DRVV SCREEN 36.3 SEC
[2020-06-20 11:05] LABS: PTT LUPUS TYPE ANTICOAG SCREEN 0.9 (0-1.2)
--- NOTE | 2020-06-20 15:48 | REP ---
INDICATION: RA. COMPARISON: None. TECHNIQUE: Four views of each hand FINDINGS: Left hand: The bones are severely demineralized. There are pencil in cup deformities of the distal aspect of the ulna and distal end of the proximal phalanx of the thumb. Erosive arthritis in the carpal regions and fusion of some of those bones noted. Erosions noted also at PIP joints of the 2nd through 4th digits. All joint spaces are narrowed. I do not see acute fracture. The IP joint of the thumb shows a dorsal subluxation of the distal phalanx related to the erosion of the distal head of the proximal phalanx. There is some lateral subluxation of the carpus on the distal radius which itself shows erosive change. Prominent soft tissue swelling about the dorsal aspect of the wrist as well as MCP and IP joints. Dorsiflexion of the PIP joints of the 2nd through 5th digits noted. Right hand: Severe erosive arthritis destroying the radiocarpal articulation and with pencil in cup deformity of the distal ulna. Partial fusion of carpal remnants with each other. Extensive erosive changes of the CMC and MCP joints and to a lesser extent the PIP joints of the 3rd of 4th and 5th digits persistent flexion of MCP joints of those 3 digits causes overlap on wall images making evaluation more difficult. Bones are severely demineralized. Destructive changes of the distal radius more severe than on the left but no acute fracture. Prominent soft tissue swelling noted. 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 Severe demineralization. Although the deformities of the ulna and thumb proximal phalanx are most often associated with psoriatic arthritis, I do not see the typical sclerotic hypertrophic changes usually present in that condition. Order states rheumatoid arthritis and there is clearly diffuse erosive changes as described. Right hand: Severe erosive arthritis involving the left hand in its carpal bones, distal radius and ulna, MCP and PIP joints. Bones severely demineralized. This would be consistent with history of rheumatoid arthritis. The pencil in cup deformity are usually associated with psoriatic arthritis. No acute fracture. <Electronically signed by Rodrigo Abebe > 06/20/20 [id number]
--- NOTE | 2020-06-20 16:20 | REP ---
INDICATION: RA. COMPARISON: Bilateral hand series today TECHNIQUE: Four views FINDINGS: Left wrist. Advanced erosive arthritic changes with partial fusion of carpal bones, pencil in cup deformity of the distal ulna, erosive changes of CMC joints particularly the 1st and severe osteoporosis. Right wrist: Advanced erosive arthritic changes with partial fusion of the carpal bones, pencil in cup deformity of the distal ulna and worse erosive change of the distal radius than the left side. CMC joint erosive changes and severe osteoporosis. 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 The erosive changes of the distal radius are worse on the right than left as are the carpal changes. Prominent soft tissue swelling. Findings certainly consistent with stated diagnosis of rheumatoid arthritis. I would comment that pencil in cup deformity is generally associated with psoriatic arthritis. <Electronically signed by Rodrigo Abebe > 06/20/20 [id number]
--- NOTE | 2020-06-20 16:32 | REP ---
INDICATION: RA / JOINT PAIN. COMPARISON: 06/19/2010 TECHNIQUE: Three views of the shoulder were performed. FINDINGS: Since the last examination the distal clavicle has the appearance of previous distal clavicular excision. The bones are demineralized. There is no evidence of an acute fracture, dislocation, or subluxation. IMPRESSION: Chronic and suspected postoperative changes as described above. <Electronically signed by Deng Belle > 06/20/20 [id number]
[2020-06-20 19:16] LABS: COMPLEMENT C3 141 MG/DL (90-180); COMPLEMENT C4 18 MG/DL (10-40)
[2020-06-22 06:17] LABS: ANA (HEP2) Positive (.); BETA-2 GLYCOPROTEIN I ABY IGA <9 (0-25); BETA-2 GLYCOPROTEIN I ABY IGG <9 (0-20); BETA-2 GLYCOPROTEIN I ABY IGM <9 (0-32); CYCLIC CITRULLINATED PEPTIDE > 250 units (0-19); HEPATITIS B CORE ANTIBODY IGG Negative (Negative)
[2020-06-22 14:11] LABS: ANTI CENTROMERE ANTIBODY <0.2 AI (0.0-0.9); ANTI DS-DNA AB Negative (Negative); ANTI-SACCHAROMYCES CEREV. IgA 34.4 Units (0.0-24.9); ANTI-SACCHAROMYCES CEREV. IgG 49.2 Units (0.0-24.9); CARDIOLIPIN IGA ANTIBODY <9 APL U/mL (0-11); CARDIOLIPIN IGG ANTIBODY <9 GPL U/mL (0-14); CARDIOLIPIN IGM ANTIBODY <9 MPL U/mL (0-12); COMPLEMENT TOTAL (CH50) > 60 U/mL (>41); RNP ANTIBODY < 0.2 AI (0.0-0.9); SMITHS ANTIBODY < 0.2 AI (0.0-0.9); SSA SJOGRENS A <0.2 AI (0.0-0.9); SSB SJOGRENS B <0.2 AI (0.0-0.9)
== END ==
LOC: SKLAB3 07:00
PROVIDERS: ATTEND Internal Medicine
DX: M06.9 Rheumatoid arthritis, unspecified (principal); M81.0 Age-related osteoporosis without current pathological fracture

== ENCOUNTER → 2020-06-28 | Outpatient (REF) | LOC: SKLAB3 11:48 | PROVIDERS: ATTEND Internal Medicine | DX: Z20.828 Contact with and (suspected) exposure to other viral communicable diseases (principal) ==

== ENCOUNTER → 2020-07-04 | Outpatient (REF) | payer MEDICARE, MEDICAID ==
[~2020-07-04] MED LIST changes: -DOK100TA PO; +DOK100TA2 PO; -MONT10TA4 PO; +MONT5TAB2 PO
== END ==
LOC: SKLAB3 07-03 14:19 → EDSTATUS 07-26 13:03
PROVIDERS: ATTEND Internal Medicine
DX: Z20.818 Contact with and (suspected) exposure to other bacterial communicable diseases (principal)

== ENCOUNTER → 2020-07-11 | Outpatient (REF) | payer MEDICARE, MEDICAID ==
[~2020-07-11] MED LIST changes: -LISI-538 PO; +LISI20TA33 PO; +MONT10TA10 PO; -MONT5TAB2 PO
== END ==
LOC: SKLAB3 08:00
PROVIDERS: ATTEND Internal Medicine
DX: Z20.828 Contact with and (suspected) exposure to other viral communicable diseases (principal)

== ENCOUNTER → 2020-07-18 | Outpatient (REF) | payer MEDICARE, MEDICAID | LOC: SKLAB3 08:00 | PROVIDERS: ATTEND Internal Medicine | DX: Z20.828 Contact with and (suspected) exposure to other viral communicable diseases (principal) ==

== ENCOUNTER → 2020-07-25 | Outpatient (REF) | payer MEDICARE, MEDICAID ==
[~2020-07-25] MED LIST changes: +LISI-538 PO; -LISI20TA33 PO; -MONT10TA10 PO; +MONT5TAB2 PO
== END ==
LOC: SKLAB3 07:16
PROVIDERS: ATTEND Internal Medicine
DX: Z20.828 Contact with and (suspected) exposure to other viral communicable diseases (principal)

== ENCOUNTER → 2020-08-01 | Outpatient (REF) | payer MEDICARE, MEDICAID | LOC: SKLAB3 10:27 | PROVIDERS: ATTEND Internal Medicine | DX: Z20.828 Contact with and (suspected) exposure to other viral communicable diseases (principal) ==

== ENCOUNTER → 2020-08-08 | Outpatient (REF) | payer MEDICARE, MEDICAID | LOC: SKLAB3 07:00 | PROVIDERS: ATTEND Internal Medicine | DX: Z20.828 Contact with and (suspected) exposure to other viral communicable diseases (principal) ==

== ENCOUNTER → 2020-08-15 | Outpatient (REF) | payer MEDICARE, MEDICAID | LOC: SKLAB3 07:00 | PROVIDERS: ATTEND Internal Medicine | DX: Z20.828 Contact with and (suspected) exposure to other viral communicable diseases (principal) ==

== ENCOUNTER → 2020-08-22 | Outpatient (REF) | payer MEDICARE, MEDICAID | LOC: SKLAB3 10:03 | PROVIDERS: ATTEND Internal Medicine | DX: Z11.52 Encounter for screening for COVID-19 (principal) ==

== ENCOUNTER → 2020-08-29 | Outpatient (REF) | payer MEDICARE, MEDICAID | LOC: SKLAB3 07:00 | PROVIDERS: ATTEND Internal Medicine | DX: Z20.822 Contact with and (suspected) exposure to COVID-19 (principal) ==

== ENCOUNTER → 2020-09-05 | Outpatient (REF) | payer MEDICARE, MEDICAID ==
[~2020-09-05] MED LIST changes: -LISI-538 PO; +LISI20TA33 PO; +MONT10TA10 PO; -MONT5TAB2 PO
== END ==
LOC: SKLAB3 06:45
PROVIDERS: ATTEND Internal Medicine
DX: Z20.822 Contact with and (suspected) exposure to COVID-19 (principal)

== ENCOUNTER → 2020-09-12 | Outpatient (REF) | payer MEDICARE, MEDICAID | LOC: SKLAB3 15:05 | PROVIDERS: ATTEND Internal Medicine | DX: Z20.822 Contact with and (suspected) exposure to COVID-19 (principal) ==

== ENCOUNTER → 2020-09-19 | Outpatient (REF) | payer MEDICARE, MEDICAID | LOC: SKLAB3 07:00 | PROVIDERS: ATTEND Internal Medicine | DX: Z11.52 Encounter for screening for COVID-19 (principal) ==

== ENCOUNTER → 2020-09-26 | Outpatient (REF) | payer MEDICARE, MEDICAID | LOC: SKLAB3 11:35 | PROVIDERS: ATTEND Internal Medicine | DX: Z20.822 Contact with and (suspected) exposure to COVID-19 (principal) ==

== ENCOUNTER → 2020-10-03 | Outpatient (REF) | payer MEDICARE, MEDICAID | LOC: SKLAB3 14:41 | PROVIDERS: ATTEND Internal Medicine | DX: Z11.52 Encounter for screening for COVID-19 (principal) ==

== ENCOUNTER → 2020-10-10 | Outpatient (REF) | payer MEDICARE, MEDICAID | LOC: SKLAB3 07:00 | PROVIDERS: ATTEND Internal Medicine | DX: Z20.822 Contact with and (suspected) exposure to COVID-19 (principal) ==

== ENCOUNTER → 2020-10-24 | Outpatient (REF) | payer MEDICARE, MEDICAID | LOC: SKLAB3 14:24 | PROVIDERS: ATTEND Internal Medicine | DX: Z20.822 Contact with and (suspected) exposure to COVID-19 (principal) ==

== ENCOUNTER → 2020-10-31 | Outpatient (REF) | payer MEDICARE, MEDICAID | LOC: SKLAB3 15:09 | PROVIDERS: ATTEND Internal Medicine | DX: Z20.822 Contact with and (suspected) exposure to COVID-19 (principal) ==

== ENCOUNTER → 2020-11-09 | Outpatient (REF) | payer MEDICARE, MEDICAID ==
[~2020-11-09] MED LIST changes: +ACYC1TAB4 PO; -ACYC800T PO
[2020-11-09 16:42] LABS: BASO % 0.3 % (0.0-1.0); EOS # 0.5 10^3/uL (0.0-0.5); EOS % 5.5 % (0.0-3.0); HEMATOCRIT 42.2 % (36.0-47.0); HEMOGLOBIN 13.3 g/dl (12.0-15.5); LYMPH % 11.9 % (24.0-44.0); MEAN CORPUSCULAR HEMOGLOBIN 30.5 pg (27.0-33.0); MEAN CORPUSCULAR HGB CONC 31.5 g/dl (32.0-36.5); MEAN CORPUSCULAR VOLUME 96.8 fl (80.0-96.0); MONO # 0.6 10^3/uL (0.0-0.8); MONO % 7.3 % (2.0-8.0); NEUTROPHILS # 6.4 10^3/uL (1.5-8.5); NEUTROPHILS % 74.7 % (36.0-66.0); PLATELET COUNT, AUTOMATED 380 10^3/uL (150-450); RED BLOOD COUNT 4.36 10^6/uL (4.00-5.40); WHITE BLOOD COUNT 8.6 10^3/uL (4.0-10.0)
[2020-11-09 17:18] LABS: ALBUMIN 3.4 GM/DL (3.2-5.2); ALT/SGPT 14 U/L (12-78); BILIRUBIN,DIRECT 0.1 MG/DL (0.0-0.2); BILIRUBIN,TOTAL 0.3 MG/DL (0.2-1.0); BLOOD UREA NITROGEN 10 MG/DL (7-18); C REACTIVE PROTEIN QUANTITATIV 1.84 MG/DL (0.00-0.30); CALCIUM LEVEL 9.1 MG/DL (8.8-10.2); CARBON DIOXIDE LEVEL 29 MEQ/L (21-32); CHLORIDE LEVEL 107 MEQ/L (98-107); CREATININE FOR GFR 0.46 MG/DL (0.55-1.30); GLOMERULAR FILTRATION RATE > 60.0 (>39); GLUCOSE, FASTING 84 MG/DL (70-100); POTASSIUM SERUM 4.3 MEQ/L (3.5-5.1); SODIUM LEVEL 141 MEQ/L (136-145)
[2020-11-09 17:23] LABS: TOTAL 25(OH) VITAMIN D 11.9 NG/ML (30.0-100.0)
[2020-11-09 19:33] LABS: ERYTHROCYTE SEDIMENTATION RATE 46 mm/hr (0-30)
== END ==
LOC: M SFHCRHEU 11:10
PROVIDERS: ATTEND Internal Medicine
DX: E55.9 Vitamin D deficiency, unspecified (principal); L40.50 Arthropathic psoriasis, unspecified
CPT/HCPCS: 80048; 80076; 82306; 85025; 85652; 86140; G0463

== ENCOUNTER → 2020-11-16 | Outpatient (REF) | payer MEDICARE, MEDICAID ==
[~2020-11-16] MED LIST changes: -ACYC1TAB4 PO; +ACYC800T PO
== END ==
LOC: SKLAB3 09:42
PROVIDERS: ATTEND Internal Medicine
DX: Z20.822 Contact with and (suspected) exposure to COVID-19 (principal)

== ENCOUNTER → 2021-01-01 | Outpatient (REF) | payer MEDICARE, MEDICAID ==
[~2021-01-01] MED LIST changes: +ACYC1TAB4 PO; -ACYC800T PO
[2021-01-01 09:13] LABS: HEMATOCRIT 43.1 % (36.0-47.0); HEMOGLOBIN 13.7 g/dl (12.0-15.5); MEAN CORPUSCULAR HEMOGLOBIN 30.3 pg (27.0-33.0); MEAN CORPUSCULAR HGB CONC 31.8 g/dl (32.0-36.5); MEAN CORPUSCULAR VOLUME 95.4 fl (80.0-96.0); PLATELET COUNT, AUTOMATED 377 10^3/uL (150-450); RED BLOOD COUNT 4.52 10^6/uL (4.00-5.40); WHITE BLOOD COUNT 8.3 10^3/uL (4.0-10.0)
[2021-01-01 09:46] LABS: ALBUMIN 3.1 GM/DL (3.2-5.2); ALT/SGPT 11 U/L (12-78); BILIRUBIN,TOTAL 0.3 MG/DL (0.2-1.0); BLOOD UREA NITROGEN 8 MG/DL (7-18); CALCIUM LEVEL 9.5 MG/DL (8.8-10.2); CARBON DIOXIDE LEVEL 30 MEQ/L (21-32); CHLORIDE LEVEL 107 MEQ/L (98-107); CHOLESTEROL LEVEL 161 MG/DL (<200); CHOLESTEROL RISK RATIO 2.267 (<5); CREATININE FOR GFR 0.55 MG/DL (0.55-1.30); GLOMERULAR FILTRATION RATE > 60.0 (>39); GLUCOSE, FASTING 85 MG/DL (70-100); HDL CHOLESTEROL 71 MG/DL (>40); LDL CHOLESTEROL 73 MG/DL (<100); NON-HDL-C 90 MG/DL; POTASSIUM SERUM 3.6 MEQ/L (3.5-5.1); SODIUM LEVEL 142 MEQ/L (136-145); TOTAL PROTEIN 7.3 GM/DL (6.4-8.2); TRIGLYCERIDES LEVEL 85 MG/DL (<150)
== END ==
LOC: SKLAB3 07:00
PROVIDERS: ATTEND Internal Medicine
DX: E78.5 Hyperlipidemia, unspecified (principal); I10 Essential (primary) hypertension; D64.89 Other specified anemias

== ENCOUNTER → 2021-03-18 | Outpatient (REF) | payer MEDICARE, MEDICAID ==
[~2021-03-18] MED LIST changes: +OMEP40CA4 PO; -OMEP40CA97 PO
== END ==
LOC: SKLAB3 07:00
PROVIDERS: ATTEND Internal Medicine
DX: M54.2 Cervicalgia (principal); Z53.8 Procedure and treatment not carried out for other reasons

== ENCOUNTER → 2021-03-18 | Outpatient (CLI) | payer MEDICARE, MEDICAID ==
--- NOTE | 2021-05-08 13:00 | REP ---
INDICATION: NECK PAIN. Repeat dictation. This study is acquired on 18 March 2021 and is presented to for repeat dictation on 08 May 2021. COMPARISON: Comparison CT study of the cervical spine February 19, 2018. TECHNIQUE: Six views including flexion extension lateral, AP, and open-mouth odontoid views. FINDINGS: Flexion extension lateral views demonstrate straightening. There is limitation of flexion extension range of motion but no subluxation or instability is seen. There are degenerative disc changes with sclerosis and osteophyte formation anteriorly at C4-5 C5-6 and to a lesser extent, C6-7. Some posterior osteophytic ridging is evident at C5-6 and C4-5. Prevertebral soft tissues are unremarkable. The patient is edentulous. 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 This is visualized on CT study as well. Vascular calcification is noted in the right carotid distribution. IMPRESSION: Degenerative spondylosis changes. Degenerative disc changes most pronounced at C4-5. Fusion of the left facet at C3-4. <Electronically signed by Jose Driver > 05/08/21 [id number]
== END ==
LOC: M RAD 11:10
PROVIDERS: ATTEND Internal Medicine
DX: M54.2 Cervicalgia (principal)

== ENCOUNTER → 2021-04-02 | Outpatient (REF) | payer MEDICARE, MEDICAID | LOC: SKLAB3 07:00 | PROVIDERS: ATTEND Internal Medicine | DX: E55.9 Vitamin D deficiency, unspecified (principal) ==

== ENCOUNTER → 2021-06-06 | Outpatient (REF) | payer MEDICARE, MEDICAID | LOC: SKLAB3 08:50 | PROVIDERS: ATTEND Internal Medicine | DX: Z20.822 Contact with and (suspected) exposure to COVID-19 (principal) ==

== ENCOUNTER → 2021-06-08 | Outpatient (REF) | payer MEDICARE, MEDICAID | LOC: SKLAB3 12:01 | PROVIDERS: ATTEND Internal Medicine | DX: Z20.822 Contact with and (suspected) exposure to COVID-19 (principal) ==

== ENCOUNTER → 2021-06-10 | Outpatient (REF) | payer MEDICARE, MEDICAID | LOC: SKLAB3 07:07 | PROVIDERS: ATTEND Internal Medicine | DX: Z20.822 Contact with and (suspected) exposure to COVID-19 (principal) ==

== ENCOUNTER → 2021-06-13 | Outpatient (REF) | payer MEDICARE, MEDICAID | LOC: SKLAB3 06:27 | PROVIDERS: ATTEND Internal Medicine | DX: Z20.822 Contact with and (suspected) exposure to COVID-19 (principal) ==

== ENCOUNTER → 2021-06-17 | Outpatient (REF) | payer MEDICARE, MEDICAID | LOC: SKLAB3 06:21 | PROVIDERS: ATTEND Internal Medicine | DX: Z20.822 Contact with and (suspected) exposure to COVID-19 (principal) ==

== ENCOUNTER → 2021-06-20 | Outpatient (REF) | payer MEDICARE, MEDICAID | LOC: SKLAB3 11:21 | PROVIDERS: ATTEND Internal Medicine | DX: Z20.822 Contact with and (suspected) exposure to COVID-19 (principal) ==

== ENCOUNTER → 2021-06-26 | Outpatient (REF) | payer MEDICARE, MEDICAID | LOC: SKLAB3 10:44 | PROVIDERS: ATTEND Internal Medicine | DX: Z20.822 Contact with and (suspected) exposure to COVID-19 (principal) ==

== ENCOUNTER → 2021-07-01 | Outpatient (REF) | payer MEDICARE, MEDICAID ==
[2021-07-01 09:36] LABS: HEMATOCRIT 37.9 % (36.0-47.0); HEMOGLOBIN 12.3 g/dl (12.0-15.5); MEAN CORPUSCULAR HEMOGLOBIN 30.5 pg (27.0-33.0); MEAN CORPUSCULAR HGB CONC 32.5 g/dl (32.0-36.5); PLATELET COUNT, AUTOMATED 275 10^3/uL (150-450); RED BLOOD COUNT 4.03 10^6/uL (4.00-5.40); WHITE BLOOD COUNT 6.4 10^3/uL (4.0-10.0)
[2021-07-01 10:10] LABS: ALBUMIN 2.7 GM/DL (3.2-5.2); ALT/SGPT 11 U/L (12-78); BILIRUBIN,TOTAL 0.2 MG/DL (0.2-1.0); BLOOD UREA NITROGEN 8 MG/DL (7-18); CARBON DIOXIDE LEVEL 27 MEQ/L (21-32); CHLORIDE LEVEL 106 MEQ/L (98-107); CREATININE FOR GFR 0.62 MG/DL (0.55-1.30); GLOMERULAR FILTRATION RATE > 60.0 (>39); GLUCOSE, FASTING 135 MG/DL (70-100); POTASSIUM SERUM 3.7 MEQ/L (3.5-5.1); SODIUM LEVEL 140 MEQ/L (136-145); TOTAL PROTEIN 6.9 GM/DL (6.4-8.2)
== END ==
LOC: SKLAB3 07:00
PROVIDERS: ATTEND Internal Medicine
DX: D64.9 Anemia, unspecified (principal); I10 Essential (primary) hypertension

== ENCOUNTER → 2021-07-03 | Outpatient (REF) | payer MEDICARE, MEDICAID | LOC: SKLAB3 08:39 | PROVIDERS: ATTEND Internal Medicine | DX: Z20.822 Contact with and (suspected) exposure to COVID-19 (principal) ==

== ENCOUNTER → 2021-07-24 | Outpatient (REF) | payer MEDICARE, MEDICAID | LOC: SKLAB3 08:51 | PROVIDERS: ATTEND Internal Medicine | DX: Z20.822 Contact with and (suspected) exposure to COVID-19 (principal) ==

== ENCOUNTER → 2021-07-31 | Outpatient (REF) | payer MEDICARE, MEDICAID | LOC: SKLAB3 07:00 | PROVIDERS: ATTEND Internal Medicine | DX: Z20.822 Contact with and (suspected) exposure to COVID-19 (principal) ==

== ENCOUNTER → 2021-08-05 | Outpatient (REF) | payer MEDICARE, MEDICAID | LOC: SKLAB3 11:51 | PROVIDERS: ATTEND Internal Medicine | DX: R09.89 Other specified symptoms and signs involving the circulatory and respiratory systems (principal); Z53.9 Procedure and treatment not carried out, unspecified reason ==

== ENCOUNTER → 2021-08-05 | Outpatient (CLI) | payer MEDICARE, MEDICAID ==
[~2021-08-05] MED LIST changes: -MONT10TA10 PO; +MONT10TA97 PO
== END ==
LOC: M RAD 14:04
PROVIDERS: ATTEND Internal Medicine
DX: R91.8 Other nonspecific abnormal finding of lung field (principal)

== ENCOUNTER → 2021-08-07 | Outpatient (REF) | payer MEDICARE, MEDICAID ==
[~2021-08-07] MED LIST changes: +MONT10TA10 PO; -MONT10TA97 PO
== END ==
LOC: SKLAB3 11:27
PROVIDERS: ATTEND Internal Medicine
DX: Z20.822 Contact with and (suspected) exposure to COVID-19 (principal)

== ENCOUNTER → 2021-08-14 | Outpatient (REF) | payer MEDICARE, MEDICAID | LOC: SKLAB3 07:04 | PROVIDERS: ATTEND Internal Medicine | DX: Z20.822 Contact with and (suspected) exposure to COVID-19 (principal) ==

== ENCOUNTER → 2021-08-21 | Outpatient (REF) | payer MEDICARE, MEDICAID | LOC: SKLAB3 09:04 | PROVIDERS: ATTEND Internal Medicine | DX: Z20.822 Contact with and (suspected) exposure to COVID-19 (principal) ==

== ENCOUNTER → 2021-10-14 | Outpatient (REF) | payer MEDICARE, MEDICAID ==
[~2021-10-14] MED LIST changes: -MONT10TA10 PO; +MONT10TA97 PO
== END ==
LOC: SKLAB3 07:00
PROVIDERS: ATTEND Internal Medicine
DX: R10.9 Unspecified abdominal pain (principal); R11.10 Vomiting, unspecified

== ENCOUNTER → 2021-10-15 | Outpatient (CLI) | payer MEDICARE, MEDICAID ==
[2021-10-15 08:51] LABS: HEMATOCRIT 39.9 % (36.0-47.0); MEAN CORPUSCULAR HEMOGLOBIN 30.6 pg (27.0-33.0); MEAN CORPUSCULAR HGB CONC 32.6 g/dl (32.0-36.5); MEAN CORPUSCULAR VOLUME 93.9 fl (80.0-96.0); PLATELET COUNT, AUTOMATED 324 10^3/uL (150-450); RED BLOOD COUNT 4.25 10^6/uL (4.00-5.40); WHITE BLOOD COUNT 6.9 10^3/uL (4.0-10.0)
[2021-10-15 09:10] LABS: BLOOD UREA NITROGEN 10 MG/DL (7-18); CALCIUM LEVEL 9.1 MG/DL (8.8-10.2); CARBON DIOXIDE LEVEL 29 MEQ/L (21-32); CHLORIDE LEVEL 108 MEQ/L (98-107); CREATININE FOR GFR 0.62 MG/DL (0.55-1.30); GLOMERULAR FILTRATION RATE > 60.0 (>39); GLUCOSE, FASTING 88 MG/DL (70-100); POTASSIUM SERUM 3.6 MEQ/L (3.5-5.1); SODIUM LEVEL 143 MEQ/L (136-145)
== END ==
LOC: SKLAB3 03:33
PROVIDERS: ATTEND Internal Medicine
DX: R10.9 Unspecified abdominal pain (principal); R11.2 Nausea with vomiting, unspecified

== ENCOUNTER → 2021-10-15 | Outpatient (CLI) | payer MEDICARE, MEDICAID ==
[~2021-10-15] MED LIST changes: +GASTROGRAFIN SOLUTION 30ML (Q9963) As Ordered ONE; +ISOVUE-370 76% 100ML VIAL As Ordered ONE
== END ==
LOC: M RAD 12:45
PROVIDERS: ATTEND Nurse Practitioner
DX: R10.9 Unspecified abdominal pain (principal); R11.2 Nausea with vomiting, unspecified
CPT/HCPCS: 74177; Q9963; Q9967

== ENCOUNTER → 2021-10-17 | Outpatient (REF) | payer MEDICARE, MEDICAID ==
[~2021-10-17] MED LIST changes: -GASTROGRAFIN SOLUTION 30ML (Q9963) As Ordered ONE; -ISOVUE-370 76% 100ML VIAL As Ordered ONE
== END ==
LOC: SKLAB3 10:17
PROVIDERS: ATTEND Internal Medicine
DX: R05.9 Cough, unspecified (principal); R06.89 Other abnormalities of breathing

== ENCOUNTER → 2021-12-04 | Outpatient (CLI) | payer MEDICARE, MEDICAID | LOC: M PAIN 11:00 | PROVIDERS: ATTEND Nurse Practitioner Family | DX: M79.10 Myalgia, unspecified site (principal); M06.9 Rheumatoid arthritis, unspecified; D64.9 Anemia, unspecified; F32.A Depression, unspecified; F41.9 Anxiety disorder, unspecified; I10 Essential (primary) hypertension; E78.5 Hyperlipidemia, unspecified; J44.9 Chronic obstructive pulmonary disease, unspecified; K21.9 Gastro-esophageal reflux disease without esophagitis; Z96.653 Presence of artificial knee joint, bilateral; G47.00 Insomnia, unspecified; I73.9 Peripheral vascular disease, unspecified; Z87.891 Personal history of nicotine dependence; Z79.52 Long term (current) use of systemic steroids; Z79.1 Long term (current) use of non-steroidal anti-inflammatories (NSAID); Z79.899 Other long term (current) drug therapy ==

== ENCOUNTER → 2021-12-05 | Outpatient (REF) | payer MEDICARE, MEDICAID | LOC: SKLAB3 12:24 | PROVIDERS: ATTEND Internal Medicine | DX: K59.00 Constipation, unspecified (principal) ==

== ENCOUNTER → 2021-12-24 | Outpatient (REF) | payer MEDICARE, MEDICAID ==
[2021-12-24 07:46] LABS: BASO # 0.1 10^3/uL (0.0-0.2); BASO % 0.6 % (0.0-1.0); EOS # 0.3 10^3/uL (0.0-0.5); EOS % 3.9 % (0.0-3.0); HEMATOCRIT 41.3 % (36.0-47.0); HEMOGLOBIN 13.3 g/dl (12.0-15.5); LYMPH # 1.5 10^3/uL (1.5-5.0); LYMPH % 17.9 % (24.0-44.0); MEAN CORPUSCULAR HEMOGLOBIN 30.2 pg (27.0-33.0); MEAN CORPUSCULAR HGB CONC 32.2 g/dl (32.0-36.5); MEAN CORPUSCULAR VOLUME 93.7 fl (80.0-96.0); MONO # 0.6 10^3/uL (0.0-0.8); MONO % 7.2 % (2.0-8.0); NEUTROPHILS # 5.8 10^3/uL (1.5-8.5); PLATELET COUNT, AUTOMATED 388 10^3/uL (150-450); RED BLOOD COUNT 4.41 10^6/uL (4.00-5.40); WHITE BLOOD COUNT 8.3 10^3/uL (4.0-10.0)
[2021-12-24 08:12] LABS: ALBUMIN 3.3 GM/DL (3.2-5.2); ALT/SGPT 10 U/L (12-78); BILIRUBIN,TOTAL 0.3 MG/DL (0.2-1.0); BLOOD UREA NITROGEN 7 MG/DL (7-18); CALCIUM LEVEL 9.4 MG/DL (8.8-10.2); CARBON DIOXIDE LEVEL 30 MEQ/L (21-32); CHLORIDE LEVEL 108 MEQ/L (98-107); CHOLESTEROL LEVEL 160 MG/DL (<200); CHOLESTEROL RISK RATIO 2.253 (<5); CREATININE FOR GFR 0.54 MG/DL (0.55-1.30); GLOMERULAR FILTRATION RATE > 60.0 (>39); GLUCOSE, FASTING 93 MG/DL (70-100); HDL CHOLESTEROL 71 MG/DL (>40); LDL CHOLESTEROL 74 MG/DL (<100); NON-HDL-C 89 MG/DL; POTASSIUM SERUM 4.1 MEQ/L (3.5-5.1); SODIUM LEVEL 141 MEQ/L (136-145); TOTAL PROTEIN 7.2 GM/DL (6.4-8.2); TRIGLYCERIDES LEVEL 74 MG/DL (<150)
[2021-12-24 09:35] LABS: TOTAL 25(OH) VITAMIN D 43.5 NG/ML (30.0-100.0)
== END ==
LOC: SKLAB3 07:00
PROVIDERS: ATTEND Internal Medicine
DX: E55.9 Vitamin D deficiency, unspecified (principal); D64.9 Anemia, unspecified; I10 Essential (primary) hypertension; E78.5 Hyperlipidemia, unspecified; Z79.899 Other long term (current) drug therapy

== ENCOUNTER → 2022-01-07 | Outpatient (REF) | payer MEDICARE, MEDICAID ==
[2022-01-07 07:51] LABS: BASO # 0.1 10^3/uL (0.0-0.2); BASO % 0.7 % (0.0-1.0); EOS # 0.3 10^3/uL (0.0-0.5); EOS % 4.3 % (0.0-3.0); HEMATOCRIT 41.2 % (36.0-47.0); HEMOGLOBIN 13.1 g/dl (12.0-15.5); LYMPH # 1.4 10^3/uL (1.5-5.0); LYMPH % 17.6 % (24.0-44.0); MEAN CORPUSCULAR HEMOGLOBIN 30.5 pg (27.0-33.0); MEAN CORPUSCULAR HGB CONC 31.8 g/dl (32.0-36.5); MONO # 0.6 10^3/uL (0.0-0.8); MONO % 7.7 % (2.0-8.0); NEUTROPHILS # 5.3 10^3/uL (1.5-8.5); NEUTROPHILS % 69.3 % (36.0-66.0); PLATELET COUNT, AUTOMATED 353 10^3/uL (150-450); RED BLOOD COUNT 4.29 10^6/uL (4.00-5.40); WHITE BLOOD COUNT 7.7 10^3/uL (4.0-10.0)
[2022-01-07 09:04] LABS: ERYTHROCYTE SEDIMENTATION RATE 61 mm/hr (0-30)
== END ==
LOC: SKLAB3 07:00
PROVIDERS: ATTEND Nurse Practitioner
DX: M06.9 Rheumatoid arthritis, unspecified (principal)

== ENCOUNTER → 2022-01-30 | Outpatient (CLI) | payer MEDICARE, MEDICAID | LOC: M PAIN 10:00 | PROVIDERS: ATTEND Nurse Practitioner Family | DX: M79.10 Myalgia, unspecified site (principal); G89.29 Other chronic pain; M06.9 Rheumatoid arthritis, unspecified; J44.9 Chronic obstructive pulmonary disease, unspecified; Z86.59 Personal history of other mental and behavioral disorders; Z96.653 Presence of artificial knee joint, bilateral; Z87.891 Personal history of nicotine dependence; Z79.899 Other long term (current) drug therapy ==

== ENCOUNTER → 2022-03-14 | Outpatient (REF) | payer MEDICARE, MEDICAID | LOC: SKLAB3 11:36 | PROVIDERS: ATTEND Internal Medicine | DX: Z20.822 Contact with and (suspected) exposure to COVID-19 (principal) ==

== ENCOUNTER → 2022-04-03 | Outpatient (REF) | payer MEDICARE, MEDICAID | LOC: SKLAB3 12:11 | PROVIDERS: ATTEND Nurse Practitioner | DX: R09.89 Other specified symptoms and signs involving the circulatory and respiratory systems (principal) ==

== ENCOUNTER → 2022-07-01 | Outpatient (REF) | payer MEDICARE, MEDICAID ==
[2022-07-01 10:11] LABS: BASO # 0.1 10^3/uL (0.0-0.2); BASO % 0.6 % (0.0-1.0); EOS # 0.3 10^3/uL (0.0-0.5); EOS % 3.6 % (0.0-3.0); HEMATOCRIT 40.4 % (36.0-47.0); HEMOGLOBIN 12.4 g/dl (12.0-15.5); LYMPH # 1.2 10^3/uL (1.5-5.0); LYMPH % 14.6 % (24.0-44.0); MEAN CORPUSCULAR HEMOGLOBIN 29.2 pg (27.0-33.0); MEAN CORPUSCULAR HGB CONC 30.7 g/dl (32.0-36.5); MEAN CORPUSCULAR VOLUME 95.3 fl (80.0-96.0); MONO # 0.7 10^3/uL (0.0-0.8); MONO % 8.2 % (2.0-8.0); NEUTROPHILS # 5.8 10^3/uL (1.5-8.5); NEUTROPHILS % 72.7 % (36.0-66.0); PLATELET COUNT, AUTOMATED 309 10^3/uL (150-450); RED BLOOD COUNT 4.24 10^6/uL (4.00-5.40)
[2022-07-01 10:37] LABS: ERYTHROCYTE SEDIMENTATION RATE 60 mm/hr (0-30)
[2022-07-01 15:52] LABS: ALBUMIN 3.2 G/DL (3.2-5.2); ALT/SGPT 11 U/L (7.0-40); BILIRUBIN,DIRECT < 0.1 MG/DL (<0.4); BILIRUBIN,TOTAL 0.3 MG/DL (0.3-1.2); BLOOD UREA NITROGEN 8 MG/DL (9-23); CALCIUM LEVEL 9.2 MG/DL (8.3-10.6); CARBON DIOXIDE LEVEL 28 MMOL/L (20-31); CHLORIDE LEVEL 103 MMOL/L (98-107); CREATININE FOR GFR 0.56 MG/DL (0.55-1.30); GLOMERULAR FILTRATION RATE > 60.0 (>39); GLUCOSE, FASTING 101 MG/DL (74-106); POTASSIUM SERUM 3.9 MMOL/L (3.5-5.1); SODIUM LEVEL 142 MMOL/L (136-145); TOTAL PROTEIN 6.6 G/DL
== END ==
LOC: SKLAB3 09:32
PROVIDERS: ATTEND Nurse Practitioner
DX: Z79.899 Other long term (current) drug therapy (principal)

== ENCOUNTER → 2022-08-01 | Outpatient (REF) | payer MEDICARE, MEDICAID | LOC: SKLAB3 11:16 | PROVIDERS: ATTEND Nurse Practitioner | DX: Z79.899 Other long term (current) drug therapy (principal) ==

== ENCOUNTER → 2022-08-05 | Outpatient (REF) | payer MEDICARE, MEDICAID ==
[2022-08-05 08:24] LABS: BASO # 0.1 10^3/uL (0.0-0.2); EOS # 0.2 10^3/uL (0.0-0.5); EOS % 2.9 % (0.0-3.0); HEMATOCRIT 43.4 % (36.0-47.0); HEMOGLOBIN 13.4 g/dl (12.0-15.5); LYMPH # 1.2 10^3/uL (1.5-5.0); LYMPH % 15.5 % (24.0-44.0); MEAN CORPUSCULAR HEMOGLOBIN 28.8 pg (27.0-33.0); MEAN CORPUSCULAR HGB CONC 30.9 g/dl (32.0-36.5); MEAN CORPUSCULAR VOLUME 93.1 fl (80.0-96.0); MONO # 0.5 10^3/uL (0.0-0.8); MONO % 6.4 % (2.0-8.0); NEUTROPHILS # 5.9 10^3/uL (1.5-8.5); NEUTROPHILS % 73.8 % (36.0-66.0); PLATELET COUNT, AUTOMATED 318 10^3/uL (150-450); RED BLOOD COUNT 4.66 10^6/uL (4.00-5.40)
[2022-08-05 08:54] LABS: ALBUMIN 3.1 G/DL (3.2-5.2); ALKALINE PHOSPHATASE 92 U/L (46-116); ALT/SGPT 10 U/L (7.0-40); AST/SGOT 24 U/L (<34); BILIRUBIN,DIRECT < 0.1 MG/DL (<0.4); BILIRUBIN,TOTAL 0.3 MG/DL (0.3-1.2); BLOOD UREA NITROGEN 5 MG/DL (9-23); CALCIUM LEVEL 9.1 MG/DL (8.3-10.6); CARBON DIOXIDE LEVEL 28 MMOL/L (20-31); CHLORIDE LEVEL 104 MMOL/L (98-107); CREATININE FOR GFR 0.45 MG/DL (0.55-1.30); GLOMERULAR FILTRATION RATE > 60.0 (>39); GLUCOSE, FASTING 83 MG/DL (74-106); POTASSIUM SERUM 4.4 MMOL/L (3.5-5.1); SODIUM LEVEL 143 MMOL/L (136-145); TOTAL PROTEIN 6.9 G/DL (5.7-8.2)
[2022-08-05 09:06] LABS: ERYTHROCYTE SEDIMENTATION RATE 48 mm/hr (0-30)
== END ==
LOC: SKLAB3 08:50
PROVIDERS: ATTEND Nurse Practitioner
DX: Z79.899 Other long term (current) drug therapy (principal)

== ENCOUNTER → 2022-10-07 | Outpatient (REF) | payer MEDICARE, MEDICAID ==
[2022-10-07 08:30] LABS: BASO # 0.1 10^3/uL (0.0-0.2); BASO % 0.8 % (0.0-1.0); EOS # 0.2 10^3/uL (0.0-0.5); EOS % 3.1 % (0.0-3.0); HEMATOCRIT 41.4 % (36.0-47.0); HEMOGLOBIN 12.8 g/dl (12.0-15.5); LYMPH # 1.2 10^3/uL (1.5-5.0); LYMPH % 15.9 % (24.0-44.0); MEAN CORPUSCULAR HEMOGLOBIN 29.3 pg (27.0-33.0); MEAN CORPUSCULAR HGB CONC 30.9 g/dl (32.0-36.5); MEAN CORPUSCULAR VOLUME 94.7 fl (80.0-96.0); MONO # 0.5 10^3/uL (0.0-0.8); MONO % 6.7 % (2.0-8.0); NEUTROPHILS # 5.5 10^3/uL (1.5-8.5); NEUTROPHILS % 73.2 % (36.0-66.0); PLATELET COUNT, AUTOMATED 345 10^3/uL (150-450); RED BLOOD COUNT 4.37 10^6/uL (4.00-5.40); WHITE BLOOD COUNT 7.5 10^3/uL (4.0-10.0)
[2022-10-07 08:48] LABS: ERYTHROCYTE SEDIMENTATION RATE 89 mm/hr (0-30)
[2022-10-07 09:26] LABS: ALBUMIN 2.9 G/DL (3.2-5.2); ALKALINE PHOSPHATASE 88 U/L (46-116); ALT/SGPT < 9 U/L (7.0-40); AST/SGOT 16 U/L (<34); BILIRUBIN,DIRECT 0.1 MG/DL (<0.4); BILIRUBIN,TOTAL 0.4 MG/DL (0.3-1.2); BLOOD UREA NITROGEN 7 MG/DL (9-23); CARBON DIOXIDE LEVEL 30 MMOL/L (20-31); CHLORIDE LEVEL 105 MMOL/L (98-107); CREATININE FOR GFR 0.51 MG/DL (0.55-1.30); GLOMERULAR FILTRATION RATE > 60.0 (>39); GLUCOSE, FASTING 85 MG/DL (74-106); POTASSIUM SERUM 3.9 MMOL/L (3.5-5.1); SODIUM LEVEL 142 MMOL/L (136-145); TOTAL PROTEIN 6.4 G/DL (5.7-8.2)
== END ==
LOC: SKLAB3 10:03
PROVIDERS: ATTEND Nurse Practitioner
DX: M06.9 Rheumatoid arthritis, unspecified (principal); Z51.81 Encounter for therapeutic drug level monitoring; Z79.899 Other long term (current) drug therapy

== ENCOUNTER → 2022-10-09 | Outpatient (REF) | payer MEDICARE, MEDICAID ==
[~2022-10-09] MED LIST changes: +ACET650T61 PO; +APRE30TA3 PO; +ARAV1TAB PO; +ARTIDRO OU; +BISA10SU PR; +BISA1TAB PO; +DICL20GE TOP; +ERGO500029 PO; +FAMO20TA4 PO; +FLEEENE12 PR; +HYDR200T3 PO; +LIDO1CRE2 EXT; +MELO7.5T35 PO; +MILK400S19 PO; +MIRT-11 PO; +MOM30SS PO; +PRED5TA PO; +PROC90TA PO; +RISP-7 PO; +SENN1TAB41 PO; +SYST1SOL4 OU; +TRAZ1TAB10 PO; +[UNRECOGNIZED DRUG - CODE] TOP
== END ==
LOC: SKLAB3 13:53
PROVIDERS: ATTEND Nurse Practitioner
DX: R05.9 Cough, unspecified (principal); M06.9 Rheumatoid arthritis, unspecified

== ENCOUNTER → 2022-11-03 | Outpatient (REF) | payer MEDICARE, MEDICAID ==
[~2022-11-03] MED LIST changes: -ACET650T61 PO; -APRE30TA3 PO; -ARAV1TAB PO; -ARTIDRO OU; -BISA10SU PR; -BISA1TAB PO; -DICL20GE TOP; -ERGO500029 PO; -FAMO20TA4 PO; -FLEEENE12 PR; -HYDR200T3 PO; -LIDO1CRE2 EXT; -MELO7.5T35 PO; -MILK400S19 PO; -MIRT-11 PO; -MOM30SS PO; -PRED5TA PO; -PROC90TA PO; -RISP-7 PO; -SENN1TAB41 PO; -SYST1SOL4 OU; -TRAZ1TAB10 PO; -[UNRECOGNIZED DRUG - CODE] TOP
== END ==
LOC: SKLAB3 10:34
PROVIDERS: ATTEND Nurse Practitioner
DX: Z01.818 Encounter for other preprocedural examination (principal); Z20.822 Contact with and (suspected) exposure to COVID-19

== ENCOUNTER 2022-11-06 23:56 | Inpatient (IN) | payer MEDICARE, MEDICAID ==
[~2022-11-06] VITALS: Ht 162.6 cm; Wt 88.2 kg
[~2022-11-06 23:56] MED LIST changes: -ACET650T61 PO; -APRE30TA3 PO; -ARAV1TAB PO; -ARTIDRO OU; -BISA10SU PR; -BISA1TAB PO; -BUPIVACAINE HCL 0.25% 10ML VIAL As Ordered ONE; -BUPIVACAINE HCL 0.25% 30ML VIAL As Ordered ONE; -DICL20GE TOP; -ERGO500029 PO; -FAMO20TA4 PO; -FLEEENE12 PR; -HYDR200T3 PO; -LIDO1CRE2 EXT; -MELO7.5T35 PO; -MILK400S19 PO; -MIRT-11 PO; -MOM30SS PO; -PRED5TA PO; -PROC90TA PO; -RISP-7 PO; -SENN1TAB41 PO; -SYST1SOL4 OU; -TRAZ1TAB10 PO; -[UNRECOGNIZED DRUG - CODE] TOP
[2022-11-07] MEDS ORDERED: MORPHINE 2 MG/ML 1ML VIAL IV ONE (00:05)
[2022-11-07] MEDS ORDERED: ONDANSETRON 4MG 2ML VIAL IV ONE (00:05)
[2022-11-07] MEDS ORDERED: ACETAMINOPHEN 1000MG 100ML IV BAG IV ONE (01:10)
[2022-11-07 01:14] LABS: BASO # 0.1 10^3/uL (0.0-0.2); BASO % 0.5 % (0.0-1.0); EOS # 0.1 10^3/uL (0.0-0.5); EOS % 0.5 % (0.0-3.0); HEMATOCRIT 36.5 % (36.0-47.0); HEMOGLOBIN 11.9 g/dl (12.0-15.5); LYMPH # 0.8 10^3/uL (1.5-5.0); LYMPH % 7.1 % (24.0-44.0); MEAN CORPUSCULAR HEMOGLOBIN 30.6 pg (27.0-33.0); MEAN CORPUSCULAR HGB CONC 32.6 g/dl (32.0-36.5); MEAN CORPUSCULAR VOLUME 93.8 fl (80.0-96.0); MONO # 0.7 10^3/uL (0.0-0.8); NEUTROPHILS # 9.5 10^3/uL (1.5-8.5); NEUTROPHILS % 85.5 % (36.0-66.0); PLATELET COUNT, AUTOMATED 340 10^3/uL (150-450); RED BLOOD COUNT 3.89 10^6/uL (4.00-5.40); WHITE BLOOD COUNT 11.1 10^3/uL (4.0-10.0)
[2022-11-07] MEDS ORDERED: RISP-7 PO (01:44)
[2022-11-07] MEDS ORDERED: SYST1SOL4 OU (01:44)
[2022-11-07] MEDS ORDERED: PRED5TA PO (01:44)
[2022-11-07] MEDS ORDERED: ARAV1TAB PO (01:44)
[2022-11-07] MEDS ORDERED: DICL20GE TOP (01:44)
[2022-11-07] MEDS ORDERED: ARTIDRO OU (01:44)
[2022-11-07] MEDS ORDERED: MELO7.5T35 PO (01:44)
[2022-11-07] MEDS ORDERED: [UNRECOGNIZED DRUG - CODE] TOP (01:44)
[2022-11-07] MEDS ORDERED: BISA1TAB PO (01:44)
[2022-11-07] MEDS ORDERED: TRAZ1TAB10 PO (01:44)
[2022-11-07] MEDS ORDERED: ACET650T61 PO (01:44)
[2022-11-07] MEDS ORDERED: PROC90TA PO (01:44)
[2022-11-07] MEDS ORDERED: MIRT-11 PO (01:44)
[2022-11-07] MEDS ORDERED: MOM30SS PO (01:44)
[2022-11-07] MEDS ORDERED: LAMO100T3 PO (01:44)
[2022-11-07] MEDS ORDERED: APRE30TA3 PO (01:44)
[2022-11-07] MEDS ORDERED: BISA10SU PR (01:44)
[2022-11-07] MEDS ORDERED: LIDO1CRE2 EXT (01:44)
[2022-11-07] MEDS ORDERED: ERGO500029 PO (01:44)
[2022-11-07] MEDS ORDERED: SENN1TAB41 PO (01:44)
[2022-11-07] MEDS ORDERED: FLEEENE12 PR (01:44)
[2022-11-07] MEDS ORDERED: MILK400S19 PO (01:44)
[2022-11-07] MEDS ORDERED: HYDR200T3 PO (01:44)
[2022-11-07] MEDS ORDERED: FAMO20TA4 PO (01:44)
[2022-11-07 01:45] LABS: ALKALINE PHOSPHATASE 88 U/L (46-116); ALT/SGPT 13 U/L (7.0-40); AST/SGOT 41 U/L (<34); BILIRUBIN,TOTAL 0.4 MG/DL (0.3-1.2); BLOOD UREA NITROGEN 9 MG/DL (9-23); CARBON DIOXIDE LEVEL 26 MMOL/L (20-31); CHLORIDE LEVEL 104 MMOL/L (98-107); CREATININE FOR GFR 0.46 MG/DL (0.55-1.30); GLOMERULAR FILTRATION RATE > 60.0 (>39); GLUCOSE, FASTING 121 MG/DL (74-106); MAGNESIUM LEVEL 1.8 MG/DL (1.8-2.4); POTASSIUM SERUM 5.5 MMOL/L (3.5-5.1); SODIUM LEVEL 137 MMOL/L (136-145); TOTAL PROTEIN 6.3 G/DL (5.7-8.2)
[2022-11-07] MEDS ORDERED: LR 1,000 ML IV SCH (02:10)
[2022-11-07] MEDS ORDERED: ONDANSETRON 4MG 2ML VIAL IV PRN (02:10)
[2022-11-07] MEDS ORDERED: ACETAMINOPHEN TAB 650MG DOSE (2X325MG) PO PRN (02:10)
[2022-11-07] MEDS ORDERED: MORPHINE 2 MG/ML 1ML VIAL IV PRN (02:10)
[2022-11-07] MEDS ORDERED: HOME MED LIST COMPLETE! XX SCH (02:30)
[2022-11-07] MEDS ORDERED: IPRATROPIUM 0.5MG/ALBUTEROL 2.5MG INH SOL UD 3ML (DUONEB) NEB PRN (02:45)
[2022-11-07] MEDS ORDERED: UNRESOLVED CLARIFICATION ENTRY XX STA (03:08)
[2022-11-07 08:09] LABS: BASO # 0.1 10^3/uL (0.0-0.2); BASO % 0.5 % (0.0-1.0); EOS # 0.1 10^3/uL (0.0-0.5); EOS % 0.7 % (0.0-3.0); HEMATOCRIT 34.2 % (36.0-47.0); HEMOGLOBIN 10.7 g/dl (12.0-15.5); LYMPH # 0.9 10^3/uL (1.5-5.0); LYMPH % 9.3 % (24.0-44.0); MEAN CORPUSCULAR HEMOGLOBIN 29.7 pg (27.0-33.0); MEAN CORPUSCULAR HGB CONC 31.3 g/dl (32.0-36.5); MONO # 0.9 10^3/uL (0.0-0.8); MONO % 9.2 % (2.0-8.0); NEUTROPHILS # 7.6 10^3/uL (1.5-8.5); PLATELET COUNT, AUTOMATED 289 10^3/uL (150-450); WHITE BLOOD COUNT 9.5 10^3/uL (4.0-10.0)
[2022-11-07 08:59] LABS: BLOOD UREA NITROGEN 8 MG/DL (9-23); CALCIUM LEVEL 8.8 MG/DL (8.3-10.6); CARBON DIOXIDE LEVEL 28 MMOL/L (20-31); CHLORIDE LEVEL 104 MMOL/L (98-107); CREATININE FOR GFR 0.41 MG/DL (0.55-1.30); GLOMERULAR FILTRATION RATE > 60.0 (>39); GLUCOSE, FASTING 98 MG/DL (74-106); POTASSIUM SERUM 3.9 MMOL/L (3.5-5.1); SODIUM LEVEL 139 MMOL/L (136-145)
[2022-11-07] MEDS ORDERED: lamoTRIgine 25MG TAB PO SCH (09:00)
[2022-11-07] MEDS ORDERED: BISACODYL 5MG TAB PO SCH (09:00)
[2022-11-07] MEDS ORDERED: risperiDONE 0.5 MG TAB PO SCH (09:00)
[2022-11-07] MEDS ORDERED: predniSONE 5 MG TAB PO SCH (09:00)
[2022-11-07] MEDS ORDERED: NIFEdipine 30MG XL TAB PO SCH (09:00)
[2022-11-07] MEDS ORDERED: SENOKOT S TAB PO SCH (09:00)
[2022-11-07] MEDS ORDERED: HYDROXYCHLOROQUINE 200 MG TAB PO SCH (09:00)
[2022-11-07] MEDS ORDERED: FAMOTIDINE 20 MG TAB PO SCH (09:00)
[2022-11-07] MEDS ORDERED: ACETAMINOPHEN 650MG ER TAB (TYLENOL ARTHRITIS) PO SCH (09:00)
[2022-11-07 09:52] VITALS: BP 169/89
[2022-11-07 11:53] LABS: RSV AMPLIFICATION NEGATIVE (NEGATIVE)
[2022-11-07] MEDS ORDERED: amLODIPine 5 MG TAB PO ONE (12:00)
[2022-11-07] MEDS ORDERED: PILL CUTTER 1 EACH XX PRN (12:15)
[2022-11-07 13:11] VITALS: BP 152/92
[2022-11-07] MEDS ORDERED: traZODone 50 MG TAB PO SCH (21:00)
[2022-11-07] MEDS ORDERED: ATORVASTATIN 5MG PER 1/2 TABLET PO SCH (21:00)
== END 2022-11-07 13:15 | disposition short-term general hospital (02) | DRG 534 ==
LOC: EDBD 23:56 → M ED 23:56 → M ED INP 11-07 02:10
PROVIDERS: ADMIT Internal Medicine; ATTEND Internal Medicine
DX: S72.401A Unspecified fracture of lower end of right femur, initial encounter for closed fracture (principal); M97.11XA Periprosthetic fracture around internal prosthetic right knee joint, initial encounter; M06.9 Rheumatoid arthritis, unspecified; D64.9 Anemia, unspecified; I10 Essential (primary) hypertension; E78.5 Hyperlipidemia, unspecified; J44.9 Chronic obstructive pulmonary disease, unspecified; K21.9 Gastro-esophageal reflux disease without esophagitis; M19.90 Unspecified osteoarthritis, unspecified site; F31.9 Bipolar disorder, unspecified; F41.9 Anxiety disorder, unspecified; Z66 Do not resuscitate; G89.29 Other chronic pain; G47.00 Insomnia, unspecified; I73.9 Peripheral vascular disease, unspecified; W18.30XA Fall on same level, unspecified, initial encounter; Y93.89 Activity, other specified; Y92.121 Bathroom in nursing home as the place of occurrence of the external cause; Y99.8 Other external cause status; Z96.653 Presence of artificial knee joint, bilateral; Z87.891 Personal history of nicotine dependence; Z79.899 Other long term (current) drug therapy; M79.12 Myalgia of auxiliary muscles, head and neck

== ENCOUNTER → 2022-11-06 | Outpatient (REF) | payer MEDICARE, MEDICAID ==
[~2022-11-06] MED LIST changes: +ACET650T61 PO; +APRE30TA3 PO; +ARAV1TAB PO; +ARTIDRO OU; +BISA10SU PR; +BISA1TAB PO; +DICL20GE TOP; +ERGO500029 PO; +FAMO20TA4 PO; +FLEEENE12 PR; +HYDR200T3 PO; +LIDO1CRE2 EXT; +MELO7.5T35 PO; +MILK400S19 PO; +MIRT-11 PO; +MOM30SS PO; +PRED5TA PO; +PROC90TA PO; +RISP-7 PO; +SENN1TAB41 PO; +SYST1SOL4 OU; +TRAZ1TAB10 PO; +[UNRECOGNIZED DRUG - CODE] TOP
== END ==
LOC: M RAD 21:06
PROVIDERS: ATTEND Internal Medicine
DX: M25.561 Pain in right knee (principal)

== ENCOUNTER → 2022-11-06 | Outpatient (CLI) | payer MEDICARE, MEDICAID ==
[~2022-11-06] MED LIST changes: +BUPIVACAINE HCL 0.25% 10ML VIAL As Ordered ONE; +BUPIVACAINE HCL 0.25% 30ML VIAL As Ordered ONE
== END ==
LOC: M PAIN 09:45
PROVIDERS: ATTEND Anesthesiology
DX: M79.12 Myalgia of auxiliary muscles, head and neck (principal); M06.9 Rheumatoid arthritis, unspecified; D64.9 Anemia, unspecified; F31.9 Bipolar disorder, unspecified; F41.9 Anxiety disorder, unspecified; I10 Essential (primary) hypertension; E78.5 Hyperlipidemia, unspecified; J44.9 Chronic obstructive pulmonary disease, unspecified; K21.9 Gastro-esophageal reflux disease without esophagitis; D35.00 Benign neoplasm of unspecified adrenal gland; G89.29 Other chronic pain; M25.542 Pain in joints of left hand; G47.00 Insomnia, unspecified; I73.9 Peripheral vascular disease, unspecified; Z96.653 Presence of artificial knee joint, bilateral; Z87.891 Personal history of nicotine dependence

== ENCOUNTER → 2022-11-14 | Outpatient (REF) | payer MEDICARE, MEDICAID ==
[~2022-11-14] MED LIST changes: +ACET650T61 PO; +APRE30TA3 PO; +ARAV1TAB PO; +ARTIDRO OU; +BISA10SU PR; +BISA1TAB PO; +DICL20GE TOP; +ERGO500029 PO; +FAMO20TA4 PO; +FLEEENE12 PR; +HYDR200T3 PO; +LIDO1CRE2 EXT; +MELO7.5T35 PO; +MILK400S19 PO; +MIRT-11 PO; +MOM30SS PO; +PRED5TA PO; +PROC90TA PO; +RISP-7 PO; +SENN1TAB41 PO; +SYST1SOL4 OU; +TRAZ1TAB10 PO; +[UNRECOGNIZED DRUG - CODE] TOP
[2022-11-14 07:43] LABS: HEMATOCRIT 31.4 % (36.0-47.0); HEMOGLOBIN 9.8 g/dl (12.0-15.5); MEAN CORPUSCULAR HEMOGLOBIN 30.2 pg (27.0-33.0); MEAN CORPUSCULAR HGB CONC 31.2 g/dl (32.0-36.5); MEAN CORPUSCULAR VOLUME 96.6 fl (80.0-96.0); PLATELET COUNT, AUTOMATED 424 10^3/uL (150-450); RED BLOOD COUNT 3.25 10^6/uL (4.00-5.40); WHITE BLOOD COUNT 7.3 10^3/uL (4.0-10.0)
[2022-11-14 08:13] LABS: BLOOD UREA NITROGEN 6 MG/DL (9-23); CALCIUM LEVEL 8.4 MG/DL (8.3-10.6); CARBON DIOXIDE LEVEL 29 MMOL/L (20-31); CHLORIDE LEVEL 104 MMOL/L (98-107); CREATININE FOR GFR 0.37 MG/DL (0.55-1.30); GLOMERULAR FILTRATION RATE > 60.0 (>39); GLUCOSE, FASTING 86 MG/DL (74-106); POTASSIUM SERUM 3.9 MMOL/L (3.5-5.1); SODIUM LEVEL 140 MMOL/L (136-145)
== END ==
LOC: SKLAB3 06:59
PROVIDERS: ATTEND Nurse Practitioner
DX: D64.9 Anemia, unspecified (principal)

== ENCOUNTER → 2022-11-18 | Outpatient (REF) | payer MEDICARE, MEDICAID | LOC: SKLAB3 09:21 | PROVIDERS: ATTEND Nurse Practitioner | DX: Z51.81 Encounter for therapeutic drug level monitoring (principal); Z79.899 Other long term (current) drug therapy ==

== ENCOUNTER 2022-12-06 23:32 | Emergency (ER) | payer MEDICARE, MEDICAID ==
[~2022-12-06] VITALS: Ht 162.6 cm; Wt 100.0 kg
[2022-12-07 00:46] LABS: RSV AMPLIFICATION NEGATIVE (NEGATIVE)
[2022-12-07] MEDS ORDERED: ISOVUE-370 76% 100ML VIAL As Ordered ONE (01:04)
[2022-12-07] MEDS ORDERED: VANCOMYCIN HCL 1,500 MG in IV FLUID PLACE HOLDER 1 EA IV ONE (02:45)
[2022-12-07] MEDS ORDERED: PIPERACILLIN/TAZOBACTAM SOD 4.5 GM in D5W MINI-BAG PLUS 50 ML IV ONE (02:45)
[2022-12-07] MEDS ORDERED: VANCOMYCIN HCL 750 MG, VIAL MATE ADAPTER 1 EACH in D5W 250 ML IV ONE ×6 (04:00)
[2022-12-07 05:15] VITALS: BP 150/76
== END 2022-12-07 05:22 | disposition short-term general hospital (02) ==
LOC: M ED 23:32
DX: L02.415 Cutaneous abscess of right lower limb (principal); I10 Essential (primary) hypertension; E78.5 Hyperlipidemia, unspecified; J44.9 Chronic obstructive pulmonary disease, unspecified; Z79.899 Other long term (current) drug therapy
CPT/HCPCS: 73701; 83605; 87040; 87070; 87077; 87186; 87631; 96365; 96366; 96375; 99285; J2543; Q9967

== ENCOUNTER → 2022-12-06 | Outpatient (REF) ==
[2022-12-06 20:58] LABS: BASO # 0.1 10^3/uL (0.0-0.2); BASO % 0.3 % (0.0-1.0); EOS # 0.1 10^3/uL (0.0-0.5); EOS % 0.4 % (0.0-3.0); HEMATOCRIT 33.5 % (36.0-47.0); HEMOGLOBIN 10.7 g/dl (12.0-15.5); LYMPH # 1.1 10^3/uL (1.5-5.0); LYMPH % 3.5 % (24.0-44.0); MEAN CORPUSCULAR HEMOGLOBIN 30.3 pg (27.0-33.0); MEAN CORPUSCULAR HGB CONC 31.9 g/dl (32.0-36.5); MEAN CORPUSCULAR VOLUME 94.9 fl (80.0-96.0); MONO # 0.6 10^3/uL (0.0-0.8); MONO % 2.1 % (2.0-8.0); NEUTROPHILS # 27.5 10^3/uL (1.5-8.5); NEUTROPHILS % 92.5 % (36.0-66.0); PLATELET COUNT, AUTOMATED 459 10^3/uL (150-450); RED BLOOD COUNT 3.53 10^6/uL (4.00-5.40); WHITE BLOOD COUNT 29.7 10^3/uL (4.0-10.0)
[2022-12-06 21:32] LABS: ALBUMIN 1.7 G/DL (3.2-5.2); ALKALINE PHOSPHATASE 209 U/L (46-116); ALT/SGPT < 9 U/L (7.0-40); AST/SGOT 24 U/L (<34); BILIRUBIN,TOTAL 0.4 MG/DL (0.3-1.2); BLOOD UREA NITROGEN 13 MG/DL (9-23); CALCIUM LEVEL 7.9 MG/DL (8.3-10.6); CARBON DIOXIDE LEVEL 28 MMOL/L (20-31); CHLORIDE LEVEL 100 MMOL/L (98-107); CREATININE FOR GFR 0.45 MG/DL (0.55-1.30); GLOMERULAR FILTRATION RATE > 60.0 (>39); GLUCOSE, FASTING 70 MG/DL (74-106); POTASSIUM SERUM 3.6 MMOL/L (3.5-5.1); SODIUM LEVEL 138 MMOL/L (136-145)
== END ==
LOC: SKLAB3 18:05
PROVIDERS: ATTEND Internal Medicine
DX: M79.89 Other specified soft tissue disorders (principal); Z96.651 Presence of right artificial knee joint

== ENCOUNTER 2022-12-16 15:58 | Inpatient (IN) | payer MEDICARE, MEDICAID ==
[~2022-12-16] VITALS: Ht 162.6 cm; Wt 78.7 kg
[2022-12-16 20:27] VITALS: BP 173/82
[2022-12-16 20:30] VITALS: BP 166/77
[2022-12-16 21:00] VITALS: BP 157/77
[2022-12-16] MEDS ORDERED: GLUCOSE 4GM CHEW TABLET PO PRN (21:55)
[2022-12-16] MEDS ORDERED: DEXTROSE 50% 50ML SYRINGE IV PRN (21:55)
[2022-12-16] MEDS ORDERED: HYDROMORPHONE HCL 0.5 MG/ 0.5 ML SYRINGE IV PRN (21:55)
[2022-12-16] MEDS ORDERED: GLUCAGON INJ 1MG VIAL SC PRN (21:55)
[2022-12-16 22:00] VITALS: BP 180/86
[2022-12-16 23:00] VITALS: BP 166/82
[2022-12-16 23:02] LABS: HEMATOCRIT 24.7 % (36.0-47.0); HEMOGLOBIN 7.3 g/dl (12.0-15.5); MEAN CORPUSCULAR HEMOGLOBIN 29.6 pg (27.0-33.0); MEAN CORPUSCULAR HGB CONC 29.6 g/dl (32.0-36.5); PLATELET COUNT, AUTOMATED 501 10^3/uL (150-450); RED BLOOD COUNT 2.47 10^6/uL (4.00-5.40); WHITE BLOOD COUNT 10.8 10^3/uL (4.0-10.0)
[2022-12-16 23:16] LABS: ALBUMIN 2.1 G/DL (3.2-5.2); ALKALINE PHOSPHATASE 86 U/L (46-116); ALT/SGPT 10 U/L (7.0-40); AST/SGOT 17 U/L (<34); BILIRUBIN,TOTAL 0.2 MG/DL (0.3-1.2); BLOOD UREA NITROGEN 11 MG/DL (9-23); CALCIUM LEVEL 7.8 MG/DL (8.3-10.6); CARBON DIOXIDE LEVEL 39 MMOL/L (20-31); CHLORIDE LEVEL 105 MMOL/L (98-107); CREATININE FOR GFR 0.26 MG/DL (0.55-1.30); GLOMERULAR FILTRATION RATE > 60.0 (>39); GLUCOSE, FASTING 64 MG/DL (74-106); POTASSIUM SERUM 3.6 MMOL/L (3.5-5.1); SODIUM LEVEL 146 MMOL/L (136-145)
[2022-12-16] MEDS ORDERED: NS 0.45% 1,000 ML IV SCH (23:35)
[2022-12-16] MEDS ORDERED: D5W/0.45% SODIUM CHLORIDE 1,000 ML IV SCH (23:55)
[2022-12-17] VITALS (18 sets, daily range): BP systolic 147–182; BP diastolic 72–86
[2022-12-17] MEDS ORDERED: INSULIN LISPRO (NovoLOG) PER UNIT SC SCH
[2022-12-17] MEDS ORDERED: PROL60SO SC (01:37)
[2022-12-17] MEDS ORDERED: HOME MED LIST COMPLETE! XX SCH (01:40)
[2022-12-17] MEDS: lamoTRIgine 25MG TAB NG SCH ×2 (04:32→08:16)
[2022-12-17] MEDS: HEPARIN SOD (PORCINE) 5000UNITS/ML 1ML VIAL/SYRINGE SC SCH ×3 (05:46→21:00)
[2022-12-17 05:57] LABS: HEMATOCRIT 24.1 % (36.0-47.0); HEMOGLOBIN 7.3 g/dl (12.0-15.5)
[2022-12-17 06:36] LABS: BLOOD UREA NITROGEN 9 MG/DL (9-23); CALCIUM LEVEL 8.1 MG/DL (8.3-10.6); CARBON DIOXIDE LEVEL > 40.0 MMOL/L (20-31); CHLORIDE LEVEL 103 MMOL/L (98-107); CREATININE FOR GFR 0.26 MG/DL (0.55-1.30); GLOMERULAR FILTRATION RATE > 60.0 (>39); GLUCOSE, FASTING 90 MG/DL (74-106); POTASSIUM SERUM 3.4 MMOL/L (3.5-5.1); SODIUM LEVEL 143 MMOL/L (136-145)
[2022-12-17] MEDS ORDERED: KCL 20MEQ IN 100ML SWI (KRUN) 20 MEQ in IV 1 EA IV ONE ×2 (08:00)
[2022-12-17] MEDS ORDERED: NIFEdipine 30MG XL TAB PO SCH (09:00)
[2022-12-17] MEDS: cefTRIAXone SOD 2 GM in D5W MINI-BAG PLUS 50 ML IV SCH (09:35)
[2022-12-17] MEDS: HYDROXYCHLOROQUINE 200 MG TAB PO SCH (10:29)
[2022-12-17] MEDS: predniSONE 5 MG TAB PO SCH (10:30)
[2022-12-17] MEDS: FAMOTIDINE 20 MG TAB PO SCH ×2 (10:30→20:57)
[2022-12-17] MEDS: risperiDONE 0.5 MG TAB PO SCH ×2 (10:30→20:58)
[2022-12-17] MEDS ORDERED: NIFEdipine 10 MG CAP PO ONE (12:00)
[2022-12-17 12:17] LABS: IRON (FE) 30 UG/DL (50-170); PERCENT SATURATION 16.3 % (13.2-45.0); TOTAL IRON BINDING CAPACITY 184 UG/DL (250-425)
[2022-12-17 12:19] LABS: FERRITIN 207.6 NG/ML (7.3-270.7); FOLATE 4.39 NG/ML (>5.4)
[2022-12-17 12:20] LABS: VITAMIN B12 LEVEL 859 PG/ML (211-911)
[2022-12-17] MEDS ORDERED: POTASSIUM CHLORIDE 10% LIQ 20MEQ/15ML UDC TF ONE (17:00)
[2022-12-17] MEDS: ATORVASTATIN 5MG PER 1/2 TABLET PO SCH (20:57)
[2022-12-17] MEDS: MIRTAZAPINE 15 MG TAB PO SCH (20:57)
[2022-12-17] MEDS: lamoTRIgine 25MG TAB PO SCH (20:58)
[2022-12-17] MEDS: traZODone 50 MG TAB PO SCH (20:58)
[2022-12-17] MEDS: FOLIC ACID 1MG TAB NG SCH (20:58)
[2022-12-17] MEDS ORDERED: LEFLUNOMIDE 10 MG PO SCH (21:00)
[2022-12-17] MEDS: NIFEdipine 10 MG CAP PO SCH (21:03)
[2022-12-18] MEDS: HEPARIN SOD (PORCINE) 5000UNITS/ML 1ML VIAL/SYRINGE SC SCH ×3 (05:39→20:57)
[2022-12-18 05:46] VITALS: BP 139/70
[2022-12-18] MEDS: NIFEdipine 10 MG CAP PO SCH ×3 (05:48→20:55)
[2022-12-18 05:49] LABS: BASO # 0.1 10^3/uL (0.0-0.2); BASO % 0.4 % (0.0-1.0); EOS # 0.2 10^3/uL (0.0-0.5); EOS % 1.9 % (0.0-3.0); HEMATOCRIT 30.7 % (36.0-47.0); LYMPH # 0.9 10^3/uL (1.5-5.0); LYMPH % 7.3 % (24.0-44.0); MEAN CORPUSCULAR HEMOGLOBIN 29.9 pg (27.0-33.0); MEAN CORPUSCULAR HGB CONC 31.3 g/dl (32.0-36.5); MEAN CORPUSCULAR VOLUME 95.6 fl (80.0-96.0); MONO # 0.7 10^3/uL (0.0-0.8); MONO % 5.9 % (2.0-8.0); NEUTROPHILS # 10.4 10^3/uL (1.5-8.5); NEUTROPHILS % 83.7 % (36.0-66.0); PLATELET COUNT, AUTOMATED 344 10^3/uL (150-450); RED BLOOD COUNT 3.21 10^6/uL (4.00-5.40); WHITE BLOOD COUNT 12.4 10^3/uL (4.0-10.0)
[2022-12-18 05:59] LABS: HEMOGLOBIN 9.6 g/dl (12.0-15.5)
[2022-12-18 06:16] LABS: BLOOD UREA NITROGEN 9 MG/DL (9-23); CALCIUM LEVEL 8.4 MG/DL (8.3-10.6); CARBON DIOXIDE LEVEL 39 MMOL/L (20-31); CHLORIDE LEVEL 104 MMOL/L (98-107); CREATININE FOR GFR 0.26 MG/DL (0.55-1.30); GLOMERULAR FILTRATION RATE > 60.0 (>39); GLUCOSE, FASTING 107 MG/DL (74-106); MAGNESIUM LEVEL 1.6 MG/DL (1.8-2.4); POTASSIUM SERUM 3.6 MMOL/L (3.5-5.1); SODIUM LEVEL 143 MMOL/L (136-145)
[2022-12-18] MEDS: MAG SULF 1GM/100ML (MAG RUN) 1 GM in IV 1 EA IV SCH ×2 (06:39→08:09)
[2022-12-18 08:00] VITALS: BP 146/67
[2022-12-18] MEDS: cefTRIAXone SOD 2 GM in D5W MINI-BAG PLUS 50 ML IV SCH (08:10)
[2022-12-18] MEDS: lamoTRIgine 25MG TAB PO SCH ×2 (08:10→20:55)
[2022-12-18] MEDS: predniSONE 5 MG TAB PO SCH (08:10)
[2022-12-18] MEDS: FAMOTIDINE 20 MG TAB PO SCH ×2 (08:10→20:55)
[2022-12-18] MEDS: HYDROXYCHLOROQUINE 200 MG TAB PO SCH (08:11)
[2022-12-18] MEDS: risperiDONE 0.5 MG TAB PO SCH ×2 (08:11→20:55)
[2022-12-18] MEDS: CLOTRIMAZOLE 1% TOPICAL CREAM 30GM TOP SCH ×2 (08:11→20:56)
[2022-12-18] MEDS ORDERED: E-Z-PAQUE 96% w/w SUSP 176GM BTL As Ordered ONE (08:33)
[2022-12-18] MEDS ORDERED: VARIBAR PUDDING 40% w/v 230ML TUBE As Ordered ONE (08:33)
[2022-12-18] MEDS ORDERED: VARIBAR NECTAR 40% w/v 240ML SUSP BTL As Ordered ONE (08:33)
[2022-12-18] MEDS ORDERED: BARIUM SULFATE 700 MG TABLET (E-Z-DISK) As Ordered ONE (08:33)
[2022-12-18] MEDS ORDERED: FERROUS SULFATE 325MG TAB PO SCH (09:00)
[2022-12-18] MEDS ORDERED: guaiFENesin SYRUP 200MG 10ML UDC NG PRN (13:15)
[2022-12-18 14:00] VITALS: BP 138/92
[2022-12-18] MEDS: SODIUM CHLORIDE 0.9% INJ 10 ML SYR IV SCH (18:22)
[2022-12-18] MEDS: ANUSOL HC CREAM 30GM TOP PRN (18:40)
[2022-12-18] MEDS: MIRTAZAPINE 15 MG TAB PO SCH (20:55)
[2022-12-18] MEDS: FOLIC ACID 1MG TAB NG SCH (20:55)
[2022-12-18] MEDS: ATORVASTATIN 5MG PER 1/2 TABLET PO SCH (20:56)
[2022-12-18] MEDS: traZODone 50 MG TAB PO SCH (20:56)
[2022-12-18] MEDS: FERROUS SULFATE 300MG/5ML UDC LIQUID NG SCH (20:58)
[2022-12-18] MEDS ORDERED: SCOPOLAMINE 1MG TRANSDERMAL PATCH TOP SCH (21:00)
[2022-12-18 22:00] VITALS: BP 137/93
[2022-12-19] MEDS: HEPARIN SOD (PORCINE) 5000UNITS/ML 1ML VIAL/SYRINGE SC SCH ×3 (05:16→22:05)
[2022-12-19 06:00] VITALS: BP 150/94
[2022-12-19] MEDS: NIFEdipine 10 MG CAP PO SCH ×3 (06:00→16:32)
[2022-12-19] MEDS: SODIUM CHLORIDE 0.9% INJ 10 ML SYR IV SCH ×2 (06:23→18:19)
[2022-12-19 06:32] LABS: VENOUS BASE EXCESS 9.3 (-2.0-2.0); VENOUS HCO3 32.3 MMOL/L (23.0-27.0); VENOUS O2 SATURATION 98.9 % (60.0-80.0); VENOUS PARTIAL PRESSURE CO2 37.8 mmHg (38.0-50.0); VENOUS PH 7.549 UNITS (7.330-7.430); VENOUS STANDARD HCO3 33.1 MMOL/L; VENOUS TOTAL CO2 33.4 MMOL/L (24.0-28.0)
[2022-12-19 06:38] LABS: BASO # 0.1 10^3/uL (0.0-0.2); BASO % 0.5 % (0.0-1.0); EOS # 0.2 10^3/uL (0.0-0.5); EOS % 1.8 % (0.0-3.0); HEMATOCRIT 33.3 % (36.0-47.0); HEMOGLOBIN 10.2 g/dl (12.0-15.5); LYMPH # 0.9 10^3/uL (1.5-5.0); LYMPH % 8.6 % (24.0-44.0); MEAN CORPUSCULAR HEMOGLOBIN 29.6 pg (27.0-33.0); MEAN CORPUSCULAR HGB CONC 30.6 g/dl (32.0-36.5); MEAN CORPUSCULAR VOLUME 96.5 fl (80.0-96.0); MONO # 0.8 10^3/uL (0.0-0.8); MONO % 7.3 % (2.0-8.0); NEUTROPHILS # 8.6 10^3/uL (1.5-8.5); NEUTROPHILS % 81.2 % (36.0-66.0); PLATELET COUNT, AUTOMATED 319 10^3/uL (150-450); RED BLOOD COUNT 3.45 10^6/uL (4.00-5.40); WHITE BLOOD COUNT 10.6 10^3/uL (4.0-10.0)
[2022-12-19 07:09] LABS: BLOOD UREA NITROGEN 6 MG/DL (9-23); CARBON DIOXIDE LEVEL 37 MMOL/L (20-31); CHLORIDE LEVEL 102 MMOL/L (98-107); CREATININE FOR GFR 0.26 MG/DL (0.55-1.30); GLOMERULAR FILTRATION RATE > 60.0 (>39); GLUCOSE, FASTING 98 MG/DL (74-106); MAGNESIUM LEVEL 1.8 MG/DL (1.8-2.4); POTASSIUM SERUM 3.5 MMOL/L (3.5-5.1); SODIUM LEVEL 143 MMOL/L (136-145)
[2022-12-19] MEDS: ANUSOL HC CREAM 30GM TOP PRN (10:02)
[2022-12-19] MEDS: CLOTRIMAZOLE 1% TOPICAL CREAM 30GM TOP SCH ×2 (10:03→22:06)
[2022-12-19] MEDS: lamoTRIgine 25MG TAB PO SCH ×2 (10:03→22:06)
[2022-12-19] MEDS: HYDROXYCHLOROQUINE 200 MG TAB PO SCH (10:03)
[2022-12-19] MEDS: predniSONE 5 MG TAB PO SCH (10:03)
[2022-12-19] MEDS: FERROUS SULFATE 300MG/5ML UDC LIQUID NG SCH ×2 (10:03→22:05)
[2022-12-19] MEDS: cefTRIAXone SOD 2 GM in D5W MINI-BAG PLUS 50 ML IV SCH (10:04)
[2022-12-19] MEDS: FAMOTIDINE 20 MG TAB PO SCH ×2 (10:04→22:05)
[2022-12-19] MEDS: risperiDONE 0.5 MG TAB PO SCH ×2 (11:50→22:05)
[2022-12-19 12:40] VITALS: BP 118/62
[2022-12-19] MEDS ORDERED: ONDANSETRON 4MG 2ML VIAL As Ordered ONE (13:45)
[2022-12-19] MEDS ORDERED: KETAMINE HCL 200MG/20ML VIAL As Ordered ONE (13:45)
[2022-12-19] MEDS ORDERED: LIDOCAINE 2% 100MG/5ML SDV (FOR ANES.) As Ordered ONE (13:45)
[2022-12-19] MEDS ORDERED: propofoL 200 MG/20 ML VIAL As Ordered ONE (13:45)
[2022-12-19] MEDS ORDERED: ROCURONIUM BROMIDE 50MG/5ML VIAL As Ordered ONE (14:09)
[2022-12-19] MEDS ORDERED: SUGAMMADEX SODIUM 500 MG/5 ML VIAL (BRIDION) As Ordered ONE (14:26)
[2022-12-19] MEDS ORDERED: amLODIPine 5 MG TAB PEG SCH (18:00)
[2022-12-19] MEDS: ACETAMINOPHEN TAB 650MG DOSE (2X325MG) PO PRN (18:18)
[2022-12-19 22:00] VITALS: BP 134/92
[2022-12-19] MEDS: ATORVASTATIN 5MG PER 1/2 TABLET PO SCH (22:05)
[2022-12-19] MEDS: FOLIC ACID 1MG TAB NG SCH (22:05)
[2022-12-19] MEDS: traZODone 50 MG TAB PO SCH (22:05)
[2022-12-19] MEDS: MIRTAZAPINE 15 MG TAB PO SCH (22:06)
[2022-12-20] VITALS (8 sets, daily range): BP systolic 101–136; BP diastolic 51–79; O2SAT 95–97
[2022-12-20] MEDS: SODIUM CHLORIDE 0.9% INJ 10 ML SYR IV SCH ×2 (05:28→17:17)
[2022-12-20] MEDS: SODIUM CHLORIDE 0.9% INJ 10 ML SYR IV PRN (05:29)
[2022-12-20] MEDS: HEPARIN SOD (PORCINE) 5000UNITS/ML 1ML VIAL/SYRINGE SC SCH ×3 (05:29→22:19)
[2022-12-20 06:39] LABS: BASO % 0.3 % (0.0-1.0); EOS % 0.4 % (0.0-3.0); HEMOGLOBIN 9.6 g/dl (12.0-15.5); LYMPH # 0.6 10^3/uL (1.5-5.0); LYMPH % 6.2 % (24.0-44.0); MEAN CORPUSCULAR HEMOGLOBIN 29.8 pg (27.0-33.0); MEAN CORPUSCULAR VOLUME 99.4 fl (80.0-96.0); MONO # 0.6 10^3/uL (0.0-0.8); NEUTROPHILS # 8.4 10^3/uL (1.5-8.5); NEUTROPHILS % 86.6 % (36.0-66.0); PLATELET COUNT, AUTOMATED 278 10^3/uL (150-450); RED BLOOD COUNT 3.22 10^6/uL (4.00-5.40); WHITE BLOOD COUNT 9.7 10^3/uL (4.0-10.0)
[2022-12-20 06:58] LABS: BLOOD UREA NITROGEN 8 MG/DL (9-23); CALCIUM LEVEL 7.5 MG/DL (8.3-10.6); CARBON DIOXIDE LEVEL 33 MMOL/L (20-31); CHLORIDE LEVEL 103 MMOL/L (98-107); CREATININE FOR GFR 0.31 MG/DL (0.55-1.30); GLOMERULAR FILTRATION RATE > 60.0 (>39); GLUCOSE, FASTING 84 MG/DL (74-106); MAGNESIUM LEVEL 1.8 MG/DL (1.8-2.4); POTASSIUM SERUM 3.8 MMOL/L (3.5-5.1); SODIUM LEVEL 140 MMOL/L (136-145)
[2022-12-20] MEDS ORDERED: NS 1,000 ML IV ONE (08:25)
[2022-12-20 09:36] LABS: ABG BASE EXCESS 6.9 (-2.0-2.0); ABG O2 SATURATION 93.4 % (95.0-99.0); ABG PARTIAL PRESSURE CO2 54.3 mmHg (35.0-45.0); ABG STANDARD HCO3 30.7 MMOL/L. (22.0-26.0); ABG TOTAL CO2 34.6 MMOL/L (23.0-31.0); ABG pH (ARTERIAL) 7.401 UNITS (7.350-7.450)
[2022-12-20] MEDS: cefTRIAXone SOD 2 GM in D5W MINI-BAG PLUS 50 ML IV SCH (09:38)
[2022-12-20] MEDS: FAMOTIDINE 20 MG TAB PO SCH ×2 (09:38→22:18)
[2022-12-20] MEDS: predniSONE 5 MG TAB PO SCH (09:38)
[2022-12-20] MEDS: lamoTRIgine 25MG TAB PO SCH ×2 (09:38→22:18)
[2022-12-20 10:07] LABS: BASO % 0.2 % (0.0-1.0); EOS # 0.1 10^3/uL (0.0-0.5); EOS % 0.6 % (0.0-3.0); HEMATOCRIT 30.6 % (36.0-47.0); HEMOGLOBIN 9.3 g/dl (12.0-15.5); LYMPH # 0.6 10^3/uL (1.5-5.0); LYMPH % 5.1 % (24.0-44.0); MEAN CORPUSCULAR HEMOGLOBIN 29.9 pg (27.0-33.0); MEAN CORPUSCULAR HGB CONC 30.4 g/dl (32.0-36.5); MEAN CORPUSCULAR VOLUME 98.4 fl (80.0-96.0); MONO % 7.8 % (2.0-8.0); NEUTROPHILS # 10.8 10^3/uL (1.5-8.5); NEUTROPHILS % 85.7 % (36.0-66.0); PLATELET COUNT, AUTOMATED 289 10^3/uL (150-450); RED BLOOD COUNT 3.11 10^6/uL (4.00-5.40); WHITE BLOOD COUNT 12.6 10^3/uL (4.0-10.0)
[2022-12-20 10:35] LABS: CPK CREATINE PHOSPHOKINASE 20 U/L (34-145)
[2022-12-20 10:39] LABS: ALBUMIN 2.4 G/DL (3.2-5.2); ALKALINE PHOSPHATASE 73 U/L (46-116); ALT/SGPT < 9 U/L (7.0-40); AST/SGOT 16 U/L (<34); BILIRUBIN,TOTAL 0.3 MG/DL (0.3-1.2); BLOOD UREA NITROGEN 8 MG/DL (9-23); CALCIUM LEVEL 7.5 MG/DL (8.3-10.6); CARBON DIOXIDE LEVEL 36 MMOL/L (20-31); CHLORIDE LEVEL 104 MMOL/L (98-107); CK-MB VALUE MASS < 1.0 NG/ML (<3.6); CREATININE FOR GFR 0.34 MG/DL (0.55-1.30); GLOMERULAR FILTRATION RATE > 60.0 (>39); GLUCOSE, FASTING 85 MG/DL (74-106); POTASSIUM SERUM 3.5 MMOL/L (3.5-5.1); SODIUM LEVEL 141 MMOL/L (136-145); TOTAL PROTEIN 5.5 G/DL (5.7-8.2)
[2022-12-20] MEDS: CLOTRIMAZOLE 1% TOPICAL CREAM 30GM TOP SCH ×2 (11:58→22:19)
[2022-12-20] MEDS: FERROUS SULFATE 300MG/5ML UDC LIQUID NG SCH ×2 (11:58→22:17)
[2022-12-20] MEDS: risperiDONE 0.5 MG TAB PO SCH ×2 (11:58→22:18)
[2022-12-20] MEDS: ACETAMINOPHEN TAB 650MG DOSE (2X325MG) PO PRN ×3 (12:00→22:23)
[2022-12-20] MEDS ORDERED: D5W/0.9% SODIUM CHLORIDE 1,000 ML IV SCH (12:45)
[2022-12-20 12:46] LABS: CK-MB VALUE MASS < 1.0 NG/ML (<3.6)
[2022-12-20 12:48] LABS: CPK CREATINE PHOSPHOKINASE 23 U/L (34-145); MB/CK RELATIVE INDEX 4.34 (< OR =4)
[2022-12-20] MEDS ORDERED: ISOVUE-370 76% 100ML VIAL As Ordered ONE (16:12)
[2022-12-20 16:14] LABS: ABG BASE EXCESS 8.3 (-2.0-2.0); ABG HCO3 33.8 MMOL/L (22.0-26.0); ABG PARTIAL PRESSURE CO2 52.1 mmHg (35.0-45.0); ABG PARTIAL PRESSURE O2 134.6 mmHg (75.0-100.0); ABG STANDARD HCO3 32.1 MMOL/L. (22.0-26.0); ABG TOTAL CO2 35.4 MMOL/L (23.0-31.0)
[2022-12-20] MEDS: ATORVASTATIN 5MG PER 1/2 TABLET PO SCH (22:18)
[2022-12-20] MEDS: MIRTAZAPINE 15 MG TAB PO SCH (22:18)
[2022-12-20] MEDS: FOLIC ACID 1MG TAB NG SCH (22:18)
[2022-12-21] VITALS (16 sets, daily range): BP systolic 127–145; BP diastolic 62–73; O2SAT 93–98
[2022-12-21] MEDS ORDERED: DEXTROSE 50% 50ML SYRINGE IV PRN (00:25)
[2022-12-21] MEDS ORDERED: GLUCOSE 4GM CHEW TABLET PEG ONE (01:00)
[2022-12-21] MEDS ORDERED: POTASSIUM PHOSPHATE INJ 20 MMOL in D5W 250 ML IV ONE (04:00)
[2022-12-21] MEDS: SODIUM CHLORIDE 0.9% INJ 10 ML SYR IV SCH ×2 (05:28→18:20)
[2022-12-21] MEDS: HEPARIN SOD (PORCINE) 5000UNITS/ML 1ML VIAL/SYRINGE SC SCH ×3 (05:28→21:25)
[2022-12-21 06:18] LABS: BASO # 0.1 10^3/uL (0.0-0.2); BASO % 0.5 % (0.0-1.0); EOS # 0.3 10^3/uL (0.0-0.5); EOS % 2.4 % (0.0-3.0); HEMATOCRIT 31.2 % (36.0-47.0); HEMOGLOBIN 9.4 g/dl (12.0-15.5); LYMPH # 0.8 10^3/uL (1.5-5.0); MEAN CORPUSCULAR HEMOGLOBIN 29.9 pg (27.0-33.0); MEAN CORPUSCULAR HGB CONC 30.1 g/dl (32.0-36.5); MEAN CORPUSCULAR VOLUME 99.4 fl (80.0-96.0); MONO # 0.9 10^3/uL (0.0-0.8); MONO % 8.3 % (2.0-8.0); NEUTROPHILS % 81.3 % (36.0-66.0); PLATELET COUNT, AUTOMATED 252 10^3/uL (150-450); RED BLOOD COUNT 3.14 10^6/uL (4.00-5.40); WHITE BLOOD COUNT 11.1 10^3/uL (4.0-10.0)
[2022-12-21 06:56] LABS: BLOOD UREA NITROGEN 6 MG/DL (9-23); CALCIUM LEVEL 7.2 MG/DL (8.3-10.6); CARBON DIOXIDE LEVEL 32 MMOL/L (20-31); CHLORIDE LEVEL 104 MMOL/L (98-107); CREATININE FOR GFR 0.28 MG/DL (0.55-1.30); GLOMERULAR FILTRATION RATE > 60.0 (>39); GLUCOSE, FASTING 87 MG/DL (74-106); MAGNESIUM LEVEL 1.8 MG/DL (1.8-2.4); PHOSPHORUS LEVEL 3.3 MG/DL (2.4-5.1); POTASSIUM SERUM 3.8 MMOL/L (3.5-5.1); SODIUM LEVEL 140 MMOL/L (136-145)
[2022-12-21] MEDS: cefTRIAXone SOD 2 GM in D5W MINI-BAG PLUS 50 ML IV SCH (08:12)
[2022-12-21] MEDS: FERROUS SULFATE 300MG/5ML UDC LIQUID NG SCH ×2 (08:12→20:28)
[2022-12-21] MEDS: risperiDONE 0.5 MG TAB PO SCH ×2 (08:12→20:29)
[2022-12-21] MEDS: lamoTRIgine 25MG TAB PO SCH ×2 (08:12→20:29)
[2022-12-21] MEDS: CLOTRIMAZOLE 1% TOPICAL CREAM 30GM TOP SCH ×2 (08:13→20:30)
[2022-12-21] MEDS: FAMOTIDINE 20 MG TAB PO SCH ×2 (08:13→20:29)
[2022-12-21] MEDS: predniSONE 5 MG TAB PO SCH (08:13)
[2022-12-21] MEDS: ACETAMINOPHEN TAB 650MG DOSE (2X325MG) PO PRN ×2 (16:55→21:31)
[2022-12-21] MEDS: ATORVASTATIN 5MG PER 1/2 TABLET PO SCH (20:29)
[2022-12-21] MEDS: MIRTAZAPINE 15 MG TAB PO SCH (20:29)
[2022-12-21] MEDS: FOLIC ACID 1MG TAB NG SCH (20:29)
[2022-12-22] VITALS (26 sets, daily range): BP systolic 127–143; BP diastolic 58–70; O2SAT 86–98
[2022-12-22] MEDS ORDERED: D5W/0.9% SODIUM CHLORIDE 1,000 ML IV SCH (00:45)
[2022-12-22] MEDS: HEPARIN SOD (PORCINE) 5000UNITS/ML 1ML VIAL/SYRINGE SC SCH ×3 (05:42→22:00)
[2022-12-22] MEDS: SODIUM CHLORIDE 0.9% INJ 10 ML SYR IV SCH ×2 (05:43→18:31)
[2022-12-22 05:51] LABS: BASO % 0.3 % (0.0-1.0); EOS # 0.2 10^3/uL (0.0-0.5); EOS % 2.8 % (0.0-3.0); HEMATOCRIT 32.2 % (36.0-47.0); HEMOGLOBIN 9.7 g/dl (12.0-15.5); LYMPH # 0.5 10^3/uL (1.5-5.0); LYMPH % 6.2 % (24.0-44.0); MEAN CORPUSCULAR HGB CONC 30.1 g/dl (32.0-36.5); MEAN CORPUSCULAR VOLUME 99.7 fl (80.0-96.0); MONO # 0.8 10^3/uL (0.0-0.8); MONO % 10.8 % (2.0-8.0); NEUTROPHILS # 5.9 10^3/uL (1.5-8.5); NEUTROPHILS % 79.4 % (36.0-66.0); PLATELET COUNT, AUTOMATED 252 10^3/uL (150-450); RED BLOOD COUNT 3.23 10^6/uL (4.00-5.40); WHITE BLOOD COUNT 7.4 10^3/uL (4.0-10.0)
[2022-12-22 06:19] LABS: BLOOD UREA NITROGEN 7 MG/DL (9-23); CALCIUM LEVEL 8.6 MG/DL (8.3-10.6); CARBON DIOXIDE LEVEL 37 MMOL/L (20-31); CHLORIDE LEVEL 106 MMOL/L (98-107); CREATININE FOR GFR 0.29 MG/DL (0.55-1.30); GLOMERULAR FILTRATION RATE > 60.0 (>39); GLUCOSE, FASTING 89 MG/DL (74-106); MAGNESIUM LEVEL 1.7 MG/DL (1.8-2.4); PHOSPHORUS LEVEL 2.4 MG/DL (2.4-5.1); POTASSIUM SERUM 3.4 MMOL/L (3.5-5.1); SODIUM LEVEL 141 MMOL/L (136-145)
[2022-12-22] MEDS ORDERED: POTASSIUM CHLORIDE 10% LIQ 20MEQ/15ML UDC PEG ONE (07:30)
[2022-12-22] MEDS: FERROUS SULFATE 300MG/5ML UDC LIQUID NG SCH ×2 (10:07→21:59)
[2022-12-22] MEDS: FAMOTIDINE 20 MG TAB PO SCH ×2 (10:08→22:00)
[2022-12-22] MEDS: risperiDONE 0.5 MG TAB PO SCH ×2 (10:08→21:59)
[2022-12-22] MEDS: cefTRIAXone SOD 2 GM in D5W MINI-BAG PLUS 50 ML IV SCH (10:09)
[2022-12-22] MEDS: lamoTRIgine 25MG TAB PO SCH ×2 (10:09→21:59)
[2022-12-22] MEDS: predniSONE 5 MG TAB PO SCH (10:09)
[2022-12-22] MEDS: MAG SULF 1GM/100ML (MAG RUN) 1 GM in IV 1 EA IV SCH ×2 (10:09→11:02)
[2022-12-22] MEDS: CLOTRIMAZOLE 1% TOPICAL CREAM 30GM TOP SCH ×2 (10:10→21:59)
[2022-12-22] MEDS ORDERED: ISOVUE-370 76% 100ML VIAL As Ordered ONE (12:57)
[2022-12-22] MEDS: MIRTAZAPINE 15 MG TAB PO SCH (21:59)
[2022-12-22] MEDS: ATORVASTATIN 5MG PER 1/2 TABLET PO SCH (21:59)
[2022-12-22] MEDS: FOLIC ACID 1MG TAB NG SCH (22:00)
[2022-12-23] VITALS (13 sets, daily range): BP systolic 132–157; BP diastolic 70–81; O2SAT 93–97
[2022-12-23] MEDS: HEPARIN SOD (PORCINE) 5000UNITS/ML 1ML VIAL/SYRINGE SC SCH ×3 (06:11→21:06)
[2022-12-23] MEDS: SODIUM CHLORIDE 0.9% INJ 10 ML SYR IV SCH ×2 (06:12→18:28)
[2022-12-23 06:48] LABS: BASO % 0.5 % (0.0-1.0); EOS # 0.2 10^3/uL (0.0-0.5); EOS % 3.7 % (0.0-3.0); HEMATOCRIT 32.8 % (36.0-47.0); HEMOGLOBIN 10.1 g/dl (12.0-15.5); LYMPH # 0.6 10^3/uL (1.5-5.0); LYMPH % 10.1 % (24.0-44.0); MEAN CORPUSCULAR HEMOGLOBIN 30.6 pg (27.0-33.0); MEAN CORPUSCULAR HGB CONC 30.8 g/dl (32.0-36.5); MEAN CORPUSCULAR VOLUME 99.4 fl (80.0-96.0); MONO # 0.6 10^3/uL (0.0-0.8); MONO % 11.4 % (2.0-8.0); NEUTROPHILS # 4.2 10^3/uL (1.5-8.5); NEUTROPHILS % 74.1 % (36.0-66.0); PLATELET COUNT, AUTOMATED 247 10^3/uL (150-450); WHITE BLOOD COUNT 5.6 10^3/uL (4.0-10.0)
[2022-12-23 07:16] LABS: BLOOD UREA NITROGEN 6 MG/DL (9-23); CALCIUM LEVEL 8.3 MG/DL (8.3-10.6); CARBON DIOXIDE LEVEL 34 MMOL/L (20-31); CHLORIDE LEVEL 104 MMOL/L (98-107); CREATININE FOR GFR 0.27 MG/DL (0.55-1.30); GLOMERULAR FILTRATION RATE > 60.0 (>39); GLUCOSE, FASTING 82 MG/DL (74-106); MAGNESIUM LEVEL 1.9 MG/DL (1.8-2.4); PHOSPHORUS LEVEL 2.4 MG/DL (2.4-5.1); SODIUM LEVEL 140 MMOL/L (136-145)
[2022-12-23] MEDS: cefTRIAXone SOD 2 GM in D5W MINI-BAG PLUS 50 ML IV SCH (10:52)
[2022-12-23] MEDS: FERROUS SULFATE 300MG/5ML UDC LIQUID NG SCH ×2 (10:53→21:05)
[2022-12-23] MEDS: lamoTRIgine 25MG TAB PO SCH ×2 (10:53→21:05)
[2022-12-23] MEDS: FAMOTIDINE 20 MG TAB PO SCH ×2 (10:53→21:06)
[2022-12-23] MEDS: risperiDONE 0.5 MG TAB PO SCH ×2 (10:53→21:06)
[2022-12-23] MEDS: predniSONE 5 MG TAB PO SCH (10:53)
[2022-12-23] MEDS: CLOTRIMAZOLE 1% TOPICAL CREAM 30GM TOP SCH ×2 (10:54→21:06)
[2022-12-23] MEDS: SODIUM CHLORIDE 0.9% INJ 10 ML SYR IV PRN (12:08)
[2022-12-23] MEDS: MIRTAZAPINE 15 MG TAB PO SCH (21:05)
[2022-12-23] MEDS: ATORVASTATIN 5MG PER 1/2 TABLET PO SCH (21:05)
[2022-12-23] MEDS: FOLIC ACID 1MG TAB NG SCH (21:05)
[2022-12-24] VITALS: BP 144/81
[2022-12-24] MEDS: ACETAMINOPHEN TAB 650MG DOSE (2X325MG) PO PRN (01:20)
[2022-12-24 05:10] VITALS: BP 143/72
[2022-12-24] MEDS: SODIUM CHLORIDE 0.9% INJ 10 ML SYR IV SCH ×3 (05:31→21:13)
[2022-12-24] MEDS: HEPARIN SOD (PORCINE) 5000UNITS/ML 1ML VIAL/SYRINGE SC SCH ×3 (05:31→20:31)
[2022-12-24 06:06] LABS: BASO % 0.3 % (0.0-1.0); EOS # 0.2 10^3/uL (0.0-0.5); EOS % 2.6 % (0.0-3.0); HEMATOCRIT 32.3 % (36.0-47.0); HEMOGLOBIN 9.6 g/dl (12.0-15.5); LYMPH # 0.6 10^3/uL (1.5-5.0); LYMPH % 8.2 % (24.0-44.0); MEAN CORPUSCULAR HEMOGLOBIN 29.9 pg (27.0-33.0); MEAN CORPUSCULAR HGB CONC 29.7 g/dl (32.0-36.5); MEAN CORPUSCULAR VOLUME 100.6 fl (80.0-96.0); MONO # 0.7 10^3/uL (0.0-0.8); MONO % 9.6 % (2.0-8.0); PLATELET COUNT, AUTOMATED 247 10^3/uL (150-450); RED BLOOD COUNT 3.21 10^6/uL (4.00-5.40); WHITE BLOOD COUNT 7.6 10^3/uL (4.0-10.0)
[2022-12-24 06:21] LABS: BLOOD UREA NITROGEN 8 MG/DL (9-23); CALCIUM LEVEL 8.2 MG/DL (8.3-10.6); CARBON DIOXIDE LEVEL 36 MMOL/L (20-31); CHLORIDE LEVEL 102 MMOL/L (98-107); CREATININE FOR GFR 0.28 MG/DL (0.55-1.30); GLOMERULAR FILTRATION RATE > 60.0 (>39); GLUCOSE, FASTING 90 MG/DL (74-106); MAGNESIUM LEVEL 1.7 MG/DL (1.8-2.4); PHOSPHORUS LEVEL 2.7 MG/DL (2.4-5.1); POTASSIUM SERUM 3.8 MMOL/L (3.5-5.1); SODIUM LEVEL 139 MMOL/L (136-145)
[2022-12-24 07:32] VITALS: BP 133/83
[2022-12-24] MEDS: lamoTRIgine 25MG TAB PO SCH ×2 (08:43→21:13)
[2022-12-24] MEDS: FERROUS SULFATE 300MG/5ML UDC LIQUID NG SCH ×2 (08:43→21:12)
[2022-12-24] MEDS: risperiDONE 0.5 MG TAB PO SCH ×2 (08:44→21:13)
[2022-12-24] MEDS: predniSONE 5 MG TAB PO SCH (08:44)
[2022-12-24] MEDS: cefTRIAXone SOD 2 GM in D5W MINI-BAG PLUS 50 ML IV SCH (08:44)
[2022-12-24] MEDS: FAMOTIDINE 20 MG TAB PO SCH ×2 (08:44→21:13)
[2022-12-24] MEDS: CLOTRIMAZOLE 1% TOPICAL CREAM 30GM TOP SCH ×2 (08:44→21:13)
[2022-12-24 11:31] VITALS: BP 131/80
[2022-12-24] MEDS: MAG SULF 1GM/100ML (MAG RUN) 1 GM in IV 1 EA IV SCH ×2 (13:29→14:54)
[2022-12-24 15:43] VITALS: BP 141/63
[2022-12-24] MEDS ORDERED: MIRALAX *UNIT DOSE* 17GM PACKET PO PRN (15:55)
[2022-12-24] MEDS: SENNA 8.6 MG TAB (SENOKOT) PO PRN (18:52)
[2022-12-24 20:00] VITALS: BP 137/71
[2022-12-24] MEDS: ATORVASTATIN 5MG PER 1/2 TABLET PO SCH (21:12)
[2022-12-24] MEDS: MIRTAZAPINE 15 MG TAB PO SCH (21:12)
[2022-12-24] MEDS: FOLIC ACID 1MG TAB NG SCH (21:13)
[2022-12-25] VITALS (8 sets, daily range): BP systolic 120–139; BP diastolic 64–77
[2022-12-25] MEDS: FERROUS SULFATE 300MG/5ML UDC LIQUID NG SCH ×2 (08:37→21:25)
[2022-12-25] MEDS: risperiDONE 0.5 MG TAB PO SCH ×2 (08:38→21:25)
[2022-12-25] MEDS: lamoTRIgine 25MG TAB PO SCH ×2 (08:38→21:29)
[2022-12-25] MEDS: CLOTRIMAZOLE 1% TOPICAL CREAM 30GM TOP SCH ×2 (08:38→21:26)
[2022-12-25] MEDS: predniSONE 5 MG TAB PO SCH (08:38)
[2022-12-25] MEDS: FAMOTIDINE 20 MG TAB PO SCH ×2 (08:38→21:26)
[2022-12-25] MEDS: cefTRIAXone SOD 2 GM in D5W MINI-BAG PLUS 50 ML IV SCH (08:38)
[2022-12-25] MEDS ORDERED: LIDOCAINE W/EPINEPHRINE 1% 20ML VIAL As Ordered ONE (11:01)
[2022-12-25] MEDS ORDERED: OXYMETAZOLINE 0.05% NASAL SPRAY (AFRIN) As Ordered ONE (11:02)
[2022-12-25] MEDS ORDERED: propofoL 200 MG/20 ML VIAL As Ordered ONE (11:08)
[2022-12-25] MEDS ORDERED: SUCCINYLCHOLINE 100MG/5ML SYRINGE As Ordered ONE (11:08)
[2022-12-25] MEDS ORDERED: LIDOCAINE 2% 100MG/5ML SDV (FOR ANES.) As Ordered ONE (11:09)
[2022-12-25] MEDS ORDERED: fentaNYL 100 MCG/2 ML INJECTION As Ordered ONE (11:09)
[2022-12-25] MEDS ORDERED: ROCURONIUM BROMIDE 50MG/5ML VIAL As Ordered ONE (11:45)
[2022-12-25] MEDS ORDERED: ONDANSETRON 4MG 2ML VIAL As Ordered ONE (11:48)
[2022-12-25] MEDS ORDERED: SUGAMMADEX SODIUM 500 MG/5 ML VIAL (BRIDION) As Ordered ONE (11:51)
[2022-12-25] MEDS ORDERED: HYDROcodone/APAP LIQUID 7.5-325MG 15ML UDC (LORTAB ELIXIR) PEG PRN (13:15)
[2022-12-25] MEDS: LR 1,000 ML IV SCH ×2 (13:23→21:29)
[2022-12-25] MEDS: HEPARIN SOD (PORCINE) 5000UNITS/ML 1ML VIAL/SYRINGE SC SCH ×2 (16:37→21:25)
[2022-12-25] MEDS: SODIUM CHLORIDE 0.9% INJ 10 ML SYR IV SCH (18:00)
[2022-12-25] MEDS: SENNA 8.6 MG TAB (SENOKOT) PO PRN (18:01)
[2022-12-25] MEDS ORDERED: BISACODYL 10MG SUPP PR ONE (19:45)
[2022-12-25] MEDS: MIRTAZAPINE 15 MG TAB PO SCH (21:25)
[2022-12-25] MEDS: FOLIC ACID 1MG TAB NG SCH (21:26)
[2022-12-25] MEDS: ATORVASTATIN 5MG PER 1/2 TABLET PO SCH (21:26)
[2022-12-26] VITALS (19 sets, daily range): BP systolic 131–159; BP diastolic 61–77; O2SAT 90–98
[2022-12-26] MEDS: SODIUM CHLORIDE 0.9% INJ 10 ML SYR IV SCH ×2 (05:32→19:03)
[2022-12-26] MEDS: HEPARIN SOD (PORCINE) 5000UNITS/ML 1ML VIAL/SYRINGE SC SCH ×3 (05:32→21:53)
[2022-12-26] MEDS: LR 1,000 ML IV SCH ×2 (09:12→21:53)
[2022-12-26] MEDS: FERROUS SULFATE 300MG/5ML UDC LIQUID NG SCH ×2 (09:24→21:52)
[2022-12-26] MEDS: risperiDONE 0.5 MG TAB PO SCH ×2 (09:24→21:52)
[2022-12-26] MEDS: cefTRIAXone SOD 2 GM in D5W MINI-BAG PLUS 50 ML IV SCH (09:24)
[2022-12-26] MEDS: FAMOTIDINE 20 MG TAB PO SCH ×2 (09:25→21:52)
[2022-12-26] MEDS: predniSONE 5 MG TAB PO SCH (09:25)
[2022-12-26] MEDS: lamoTRIgine 25MG TAB PO SCH ×2 (09:25→21:53)
[2022-12-26] MEDS: CLOTRIMAZOLE 1% TOPICAL CREAM 30GM TOP SCH ×2 (09:25→21:54)
[2022-12-26] MEDS: ATORVASTATIN 5MG PER 1/2 TABLET PO SCH (21:52)
[2022-12-26] MEDS: FOLIC ACID 1MG TAB NG SCH (21:53)
[2022-12-26] MEDS: MIRTAZAPINE 15 MG TAB PO SCH (21:53)
[2022-12-27] VITALS (24 sets, daily range): BP systolic 132–156; BP diastolic 63–78; O2SAT 84–98
[2022-12-27] MEDS: SODIUM CHLORIDE 0.9% INJ 10 ML SYR IV SCH ×2 (04:39→18:46)
[2022-12-27] MEDS: HEPARIN SOD (PORCINE) 5000UNITS/ML 1ML VIAL/SYRINGE SC SCH ×3 (05:45→21:45)
[2022-12-27] MEDS ORDERED: SENNA 8.6 MG TAB (SENOKOT) FT PRN (08:20)
[2022-12-27] MEDS ORDERED: GLUCOSE 4GM CHEW TABLET FT PRN (08:20)
[2022-12-27] MEDS ORDERED: MIRALAX *UNIT DOSE* 17GM PACKET PEG PRN (08:20)
[2022-12-27] MEDS: FERROUS SULFATE 300MG/5ML UDC LIQUID NG SCH ×2 (08:50→21:45)
[2022-12-27] MEDS: cefTRIAXone SOD 2 GM in D5W MINI-BAG PLUS 50 ML IV SCH (08:51)
[2022-12-27] MEDS: CLOTRIMAZOLE 1% TOPICAL CREAM 30GM TOP SCH ×2 (08:51→21:47)
[2022-12-27] MEDS ORDERED: ACETAMINOPHEN 325MG/10.15ML UDC FT PRN (09:55)
[2022-12-27] MEDS: SODIUM CHLORIDE 0.9% INJ 10 ML SYR IV PRN (09:58)
[2022-12-27 10:24] LABS: BASO % 0.6 % (0.0-1.0); EOS # 0.1 10^3/uL (0.0-0.5); EOS % 1.4 % (0.0-3.0); HEMATOCRIT 33.1 % (36.0-47.0); LYMPH # 1.1 10^3/uL (1.5-5.0); LYMPH % 16.7 % (24.0-44.0); MEAN CORPUSCULAR HEMOGLOBIN 30.2 pg (27.0-33.0); MEAN CORPUSCULAR HGB CONC 30.2 g/dl (32.0-36.5); MONO # 0.6 10^3/uL (0.0-0.8); MONO % 9.6 % (2.0-8.0); NEUTROPHILS # 4.6 10^3/uL (1.5-8.5); NEUTROPHILS % 71.1 % (36.0-66.0); PLATELET COUNT, AUTOMATED 322 10^3/uL (150-450); RED BLOOD COUNT 3.31 10^6/uL (4.00-5.40); WHITE BLOOD COUNT 6.5 10^3/uL (4.0-10.0)
[2022-12-27 10:46] LABS: BLOOD UREA NITROGEN 11 MG/DL (9-23); CARBON DIOXIDE LEVEL 35 MMOL/L (20-31); CHLORIDE LEVEL 106 MMOL/L (98-107); GLOMERULAR FILTRATION RATE > 60.0 (>39); GLUCOSE, FASTING 91 MG/DL (74-106); POTASSIUM SERUM 3.4 MMOL/L (3.5-5.1); SODIUM LEVEL 144 MMOL/L (136-145)
[2022-12-27] MEDS: LR 1,000 ML IV SCH ×2 (11:32→21:13)
[2022-12-27] MEDS: FAMOTIDINE 20 MG TAB FT SCH ×2 (11:45→21:46)
[2022-12-27] MEDS: lamoTRIgine 25MG TAB PEG SCH ×2 (11:46→21:45)
[2022-12-27] MEDS: risperiDONE 0.5 MG TAB PEG SCH ×2 (11:46→21:46)
[2022-12-27] MEDS: predniSONE 5 MG TAB FT SCH (11:48)
[2022-12-27] MEDS: ATORVASTATIN 5MG PER 1/2 TABLET PEG SCH (21:45)
[2022-12-27] MEDS: FOLIC ACID 1MG TAB NG SCH (21:46)
[2022-12-27] MEDS: MIRTAZAPINE 15 MG TAB PEG SCH (21:46)
[2022-12-28] VITALS (10 sets, daily range): BP systolic 135–178; BP diastolic 67–84; O2SAT 94–97
[2022-12-28] MEDS: HEPARIN SOD (PORCINE) 5000UNITS/ML 1ML VIAL/SYRINGE SC SCH ×3 (05:26→23:00)
[2022-12-28] MEDS: SODIUM CHLORIDE 0.9% INJ 10 ML SYR IV SCH ×2 (05:27→17:03)
[2022-12-28] MEDS: LR 1,000 ML IV SCH ×2 (06:21→17:02)
[2022-12-28 08:03] LABS: BASO # 0.1 10^3/uL (0.0-0.2); BASO % 1.1 % (0.0-1.0); EOS # 0.2 10^3/uL (0.0-0.5); EOS % 3.7 % (0.0-3.0); HEMATOCRIT 28.9 % (36.0-47.0); HEMOGLOBIN 8.7 g/dl (12.0-15.5); LYMPH % 20.8 % (24.0-44.0); MEAN CORPUSCULAR HEMOGLOBIN 29.8 pg (27.0-33.0); MEAN CORPUSCULAR HGB CONC 30.1 g/dl (32.0-36.5); MONO # 0.5 10^3/uL (0.0-0.8); MONO % 11.1 % (2.0-8.0); NEUTROPHILS # 2.9 10^3/uL (1.5-8.5); NEUTROPHILS % 62.6 % (36.0-66.0); PLATELET COUNT, AUTOMATED 321 10^3/uL (150-450); RED BLOOD COUNT 2.92 10^6/uL (4.00-5.40); WHITE BLOOD COUNT 4.6 10^3/uL (4.0-10.0)
[2022-12-28 08:22] LABS: BLOOD UREA NITROGEN 9 MG/DL (9-23); CALCIUM LEVEL 8.1 MG/DL (8.3-10.6); CARBON DIOXIDE LEVEL 36 MMOL/L (20-31); CHLORIDE LEVEL 107 MMOL/L (98-107); CREATININE FOR GFR 0.27 MG/DL (0.55-1.30); GLOMERULAR FILTRATION RATE > 60.0 (>39); GLUCOSE, FASTING 89 MG/DL (74-106); POTASSIUM SERUM 3.8 MMOL/L (3.5-5.1); SODIUM LEVEL 144 MMOL/L (136-145)
[2022-12-28] MEDS: lamoTRIgine 25MG TAB PEG SCH ×2 (09:03→20:54)
[2022-12-28] MEDS: cefTRIAXone SOD 2 GM in D5W MINI-BAG PLUS 50 ML IV SCH (09:04)
[2022-12-28] MEDS: predniSONE 5 MG TAB FT SCH (09:04)
[2022-12-28] MEDS: FAMOTIDINE 20 MG TAB FT SCH ×2 (09:04→20:53)
[2022-12-28] MEDS: risperiDONE 0.5 MG TAB PEG SCH ×2 (09:04→20:53)
[2022-12-28] MEDS: FERROUS SULFATE 300MG/5ML UDC LIQUID NG SCH ×2 (09:04→20:53)
[2022-12-28] MEDS: CLOTRIMAZOLE 1% TOPICAL CREAM 30GM TOP SCH ×2 (09:05→20:54)
[2022-12-28] MEDS: MIRTAZAPINE 15 MG TAB PEG SCH (20:53)
[2022-12-28] MEDS: ATORVASTATIN 5MG PER 1/2 TABLET PEG SCH (20:53)
[2022-12-28] MEDS: FOLIC ACID 1MG TAB NG SCH (20:54)
[2022-12-29] VITALS (8 sets, daily range): BP systolic 126–189; BP diastolic 60–89; O2SAT 94–99
[2022-12-29] MEDS ORDERED: hydrALAZINE 20MG/ML 1ML VIAL IV ONE (00:55)
[2022-12-29] MEDS ORDERED: NIFEdipine 10 MG CAP PEG ONE (04:55)
[2022-12-29] MEDS: LR 1,000 ML IV SCH ×2 (05:12→16:30)
[2022-12-29] MEDS: SODIUM CHLORIDE 0.9% INJ 10 ML SYR IV SCH ×2 (06:29→17:32)
[2022-12-29] MEDS: HEPARIN SOD (PORCINE) 5000UNITS/ML 1ML VIAL/SYRINGE SC SCH ×3 (06:29→21:24)
[2022-12-29 07:09] LABS: BASO % 0.8 % (0.0-1.0); EOS # 0.2 10^3/uL (0.0-0.5); HEMATOCRIT 32.6 % (36.0-47.0); HEMOGLOBIN 9.8 g/dl (12.0-15.5); LYMPH % 18.3 % (24.0-44.0); MEAN CORPUSCULAR HEMOGLOBIN 29.4 pg (27.0-33.0); MEAN CORPUSCULAR HGB CONC 30.1 g/dl (32.0-36.5); MEAN CORPUSCULAR VOLUME 97.9 fl (80.0-96.0); MONO # 0.5 10^3/uL (0.0-0.8); MONO % 9.8 % (2.0-8.0); NEUTROPHILS # 3.4 10^3/uL (1.5-8.5); NEUTROPHILS % 66.3 % (36.0-66.0); PLATELET COUNT, AUTOMATED 354 10^3/uL (150-450); RED BLOOD COUNT 3.33 10^6/uL (4.00-5.40); WHITE BLOOD COUNT 5.2 10^3/uL (4.0-10.0)
[2022-12-29 07:25] LABS: BLOOD UREA NITROGEN 8 MG/DL (9-23); CALCIUM LEVEL 8.4 MG/DL (8.3-10.6); CARBON DIOXIDE LEVEL 35 MMOL/L (20-31); CHLORIDE LEVEL 103 MMOL/L (98-107); CREATININE FOR GFR 0.26 MG/DL (0.55-1.30); GLOMERULAR FILTRATION RATE > 60.0 (>39); GLUCOSE, FASTING 107 MG/DL (74-106); SODIUM LEVEL 142 MMOL/L (136-145)
[2022-12-29] MEDS: FAMOTIDINE 20 MG TAB FT SCH ×2 (08:58→21:23)
[2022-12-29] MEDS: risperiDONE 0.5 MG TAB PEG SCH ×2 (08:58→21:23)
[2022-12-29] MEDS: cefTRIAXone SOD 2 GM in D5W MINI-BAG PLUS 50 ML IV SCH (08:58)
[2022-12-29] MEDS: lamoTRIgine 25MG TAB PEG SCH ×2 (08:58→21:23)
[2022-12-29] MEDS: predniSONE 5 MG TAB FT SCH (08:58)
[2022-12-29] MEDS: FERROUS SULFATE 300MG/5ML UDC LIQUID NG SCH ×2 (08:59→21:23)
[2022-12-29] MEDS: CLOTRIMAZOLE 1% TOPICAL CREAM 30GM TOP SCH ×2 (08:59→21:24)
[2022-12-29] MEDS: amLODIPine 5 MG TAB PO SCH (09:00)
[2022-12-29] MEDS: SODIUM CHLORIDE 0.9% INJ 10 ML SYR IV PRN (10:33)
[2022-12-29] MEDS: MIRTAZAPINE 15 MG TAB PEG SCH (21:23)
[2022-12-29] MEDS: FOLIC ACID 1MG TAB NG SCH (21:23)
[2022-12-29] MEDS: ATORVASTATIN 5MG PER 1/2 TABLET PEG SCH (21:23)
[2022-12-30] VITALS (7 sets, daily range): BP systolic 136–178; BP diastolic 75–90
[2022-12-30] MEDS: LR 1,000 ML IV SCH ×2 (03:58→16:13)
[2022-12-30] MEDS: HEPARIN SOD (PORCINE) 5000UNITS/ML 1ML VIAL/SYRINGE SC SCH ×2 (06:22→15:37)
[2022-12-30] MEDS: SODIUM CHLORIDE 0.9% INJ 10 ML SYR IV SCH ×2 (06:24→18:20)
[2022-12-30] MEDS: amLODIPine 5 MG TAB PO SCH (08:35)
[2022-12-30] MEDS: FAMOTIDINE 20 MG TAB FT SCH (08:35)
[2022-12-30] MEDS: FERROUS SULFATE 300MG/5ML UDC LIQUID NG SCH (08:35)
[2022-12-30] MEDS: predniSONE 5 MG TAB FT SCH (08:35)
[2022-12-30] MEDS: lamoTRIgine 25MG TAB PEG SCH (08:35)
[2022-12-30] MEDS: risperiDONE 0.5 MG TAB PEG SCH (08:35)
[2022-12-30] MEDS: CLOTRIMAZOLE 1% TOPICAL CREAM 30GM TOP SCH (08:36)
[2022-12-30] MEDS: cefTRIAXone SOD 2 GM in D5W MINI-BAG PLUS 50 ML IV SCH (08:36)
== END 2022-12-30 20:02 | disposition short-term general hospital (02) | DRG 158 ==
LOC: M ICU 20:14 → EEVIPCON 20:14 → M MS5PR 12-18 12:20 → M PCU 12-20 08:44
PROVIDERS: ADMIT Internal Medicine Critical Care Medicine; ATTEND Internal Medicine
PROC: 30233N1 Transfusion of Nonautologous Red Blood Cells into Peripheral Vein, Percutaneous Approach (ICD-10-PCS; 2022-12-17)
PROC: 0DH64UZ Insertion of Feeding Device into Stomach, Percutaneous Endoscopic Approach (ICD-10-PCS; principal; 2022-12-19 15:23)
PROC: B246ZZZ Ultrasonography of Right and Left Heart (ICD-10-PCS; 2022-12-20)
PROC: 0CB7XZX Excision of Tongue, External Approach, Diagnostic (ICD-10-PCS; 2022-12-25)
PROC: 0DJ08ZZ Inspection of Upper Intestinal Tract, Via Natural or Artificial Opening Endoscopic (ICD-10-PCS; 2022-12-25)
DX: K14.8 Other diseases of tongue (principal); E87.0 Hyperosmolality and hypernatremia; D62 Acute posthemorrhagic anemia; L97.419 Non-pressure chronic ulcer of right heel and midfoot with unspecified severity; T84.53XD Infection and inflammatory reaction due to internal right knee prosthesis, subsequent encounter; Z96.651 Presence of right artificial knee joint; M06.9 Rheumatoid arthritis, unspecified; G47.30 Sleep apnea, unspecified; F31.9 Bipolar disorder, unspecified; F32.A Depression, unspecified; E66.9 Obesity, unspecified; R13.10 Dysphagia, unspecified; E16.2 Hypoglycemia, unspecified; Z79.52 Long term (current) use of systemic steroids; Z79.899 Other long term (current) drug therapy; Z79.2 Long term (current) use of antibiotics; Z66 Do not resuscitate; K21.9 Gastro-esophageal reflux disease without esophagitis; E78.5 Hyperlipidemia, unspecified; E83.39 Other disorders of phosphorus metabolism; D10.1 Benign neoplasm of tongue; R00.1 Bradycardia, unspecified; K59.00 Constipation, unspecified

== ENCOUNTER 2023-01-01 | Observation (INO) | payer MEDICARE, MEDICAID ==
[~2023-01-01] MED LIST changes: +PROL60SO SC
[2023-01-01 22:10] VITALS: BP 158/80
[2023-01-01] MEDS ORDERED: ACETAMINOPHEN TAB 650MG DOSE (2X325MG) PO PRN (23:15)
[2023-01-01] MEDS ORDERED: NS 1,000 ML IV SCH (23:15)
[2023-01-02] VITALS: BP 137/74
[2023-01-02] MEDS ORDERED: cefTRIAXone SOD 1GM VIAL IV SCH (01:00)
[2023-01-02] MEDS ORDERED: MELO7.5T35 PO (02:37)
[2023-01-02] MEDS ORDERED: NIFE90TA20 PO (02:37)
[2023-01-02] MEDS ORDERED: TRAZ-186 PO (02:37)
[2023-01-02] MEDS ORDERED: LEFL10TA12 PO (02:37)
[2023-01-02] MEDS ORDERED: HYDR200T3 PO (02:37)
[2023-01-02] MEDS ORDERED: HOME MED LIST COMPLETE! XX SCH (02:40)
[2023-01-02 05:00] VITALS: BP 148/70
[2023-01-02] MEDS ORDERED: HEPARIN SOD (PORCINE) 5000UNITS/ML 1ML VIAL/SYRINGE SC SCH (06:00)
[2023-01-02 06:36] LABS: HEMATOCRIT 32.7 % (36.0-47.0); HEMOGLOBIN 9.7 g/dl (12.0-15.5); MEAN CORPUSCULAR HEMOGLOBIN 29.6 pg (27.0-33.0); MEAN CORPUSCULAR HGB CONC 29.7 g/dl (32.0-36.5); MEAN CORPUSCULAR VOLUME 99.7 fl (80.0-96.0); PLATELET COUNT, AUTOMATED 340 10^3/uL (150-450); RED BLOOD COUNT 3.28 10^6/uL (4.00-5.40); WHITE BLOOD COUNT 8.1 10^3/uL (4.0-10.0)
[2023-01-02 07:03] LABS: ALBUMIN 2.2 G/DL (3.2-5.2); ALKALINE PHOSPHATASE 84 U/L (46-116); ALT/SGPT 11 U/L (7.0-40); AST/SGOT 12 U/L (<34); BILIRUBIN,TOTAL 0.2 MG/DL (0.3-1.2); BLOOD UREA NITROGEN 9 MG/DL (9-23); CALCIUM LEVEL 8.3 MG/DL (8.3-10.6); CARBON DIOXIDE LEVEL 37 MMOL/L (20-31); CHLORIDE LEVEL 103 MMOL/L (98-107); CREATININE FOR GFR 0.32 MG/DL (0.55-1.30); GLOMERULAR FILTRATION RATE > 60.0 (>39); GLUCOSE, FASTING 87 MG/DL (74-106); POTASSIUM SERUM 4.4 MMOL/L (3.5-5.1); SODIUM LEVEL 141 MMOL/L (136-145); TOTAL PROTEIN 5.4 G/DL (5.7-8.2)
[2023-01-02 07:40] VITALS: BP 140/69
[2023-01-02 07:53] LABS: ERYTHROCYTE SEDIMENTATION RATE 87 mm/hr (0-30)
[2023-01-02] MEDS ORDERED: HYDROXYCHLOROQUINE 200 MG TAB PO SCH (09:00)
[2023-01-02] MEDS ORDERED: SENOKOT S TAB PO SCH (09:00)
[2023-01-02] MEDS ORDERED: predniSONE 5 MG TAB PO SCH (09:00)
[2023-01-02] MEDS ORDERED: risperiDONE 0.5 MG TAB PO SCH (09:00)
[2023-01-02] MEDS ORDERED: lamoTRIgine 25MG TAB PO SCH (09:00)
[2023-01-02] MEDS ORDERED: DENOSUMAB 60MG/1ML SYRINGE (PROLIA) SC SCH (09:35)
[2023-01-02] MEDS ORDERED: BISACODYL 10MG SUPP PR PRN (09:35)
[2023-01-02] MEDS ORDERED: FERR325T3 PO (09:47)
[2023-01-02] MEDS ORDERED: FOLI1TAB11 PO (09:47)
[2023-01-02] MEDS ORDERED: SODIUM CHLORIDE 0.9% INJ 10 ML SYR IV PRN (10:25)
[2023-01-02] MEDS ORDERED: SODIUM CHLORIDE 0.9% INJ 10 ML SYR IV SCH (18:00)
[2023-01-02] MEDS ORDERED: ATORVASTATIN 10 MG TAB PO SCH (21:00)
[2023-01-02] MEDS ORDERED: FAMOTIDINE 20 MG TAB PO SCH (21:00)
[2023-01-03] MEDS ORDERED: HYDROXYCHLOROQUINE 200 MG TAB PO SCH (09:00)
== END 2023-01-02 12:22 ==
LOC: EDSTATUS → M ED INP 22:02 → M PCU 22:03
PROVIDERS: ADMIT Internal Medicine; ATTEND Internal Medicine
DX: K14.8 Other diseases of tongue (principal); M53.9 Dorsopathy, unspecified; M06.9 Rheumatoid arthritis, unspecified; R13.10 Dysphagia, unspecified; Z93.1 Gastrostomy status; R00.1 Bradycardia, unspecified; E83.39 Other disorders of phosphorus metabolism; Z86.19 Personal history of other infectious and parasitic diseases; G47.34 Idiopathic sleep related nonobstructive alveolar hypoventilation; D53.9 Nutritional anemia, unspecified; F31.9 Bipolar disorder, unspecified; F32.A Depression, unspecified; K21.9 Gastro-esophageal reflux disease without esophagitis; R05.3 Chronic cough; E66.9 Obesity, unspecified; Z79.899 Other long term (current) drug therapy; Z79.52 Long term (current) use of systemic steroids; Z96.651 Presence of right artificial knee joint
CPT/HCPCS: 80053; 81002; 85027; 85652; 87635; 96372; 96374; G0378; J0696; J7512

== ENCOUNTER → 2023-01-07 | Outpatient (REF) | payer MEDICARE, MEDICAID ==
[~2023-01-07] MED LIST changes: +FOLI1TAB11 PO; +LEFL10TA12 PO; +NIFE90TA20 PO; +TRAZ-186 PO
[2023-01-07 06:48] LABS: HEMATOCRIT 35.1 % (36.0-47.0); HEMOGLOBIN 10.7 g/dl (12.0-15.5); MEAN CORPUSCULAR HEMOGLOBIN 30.2 pg (27.0-33.0); MEAN CORPUSCULAR HGB CONC 30.5 g/dl (32.0-36.5); MEAN CORPUSCULAR VOLUME 99.2 fl (80.0-96.0); PLATELET COUNT, AUTOMATED 297 10^3/uL (150-450); RED BLOOD COUNT 3.54 10^6/uL (4.00-5.40); WHITE BLOOD COUNT 7.5 10^3/uL (4.0-10.0)
[2023-01-07 07:13] LABS: ALBUMIN 2.5 G/DL (3.2-5.2); ALKALINE PHOSPHATASE 79 U/L (46-116); ALT/SGPT 12 U/L (7.0-40); AST/SGOT 15 U/L (<34); BILIRUBIN,TOTAL < 0.2 MG/DL (0.3-1.2); BLOOD UREA NITROGEN 27 MG/DL (9-23); CALCIUM LEVEL 9.3 MG/DL (8.3-10.6); CARBON DIOXIDE LEVEL 36 MMOL/L (20-31); CHLORIDE LEVEL 102 MMOL/L (98-107); CREATININE FOR GFR 0.29 MG/DL (0.55-1.30); GLOMERULAR FILTRATION RATE > 60.0 (>39); GLUCOSE, FASTING 115 MG/DL (74-106); POTASSIUM SERUM 4.4 MMOL/L (3.5-5.1); SODIUM LEVEL 140 MMOL/L (136-145); TOTAL PROTEIN 5.9 G/DL (5.7-8.2)
== END ==
LOC: SKLAB3 07:00
PROVIDERS: ATTEND Nurse Practitioner
DX: R13.10 Dysphagia, unspecified (principal); Z79.899 Other long term (current) drug therapy

== ENCOUNTER → 2023-01-07 | Outpatient (REF) | payer MEDICARE, MEDICAID | LOC: M SFHCPLAZ 15:31 | PROVIDERS: ATTEND Internal Medicine Infectious Disease | DX: M06.9 Rheumatoid arthritis, unspecified (principal) ==

== ENCOUNTER → 2023-02-03 | Outpatient (REF) | payer MEDICARE, MEDICAID ==
[~2023-02-03] MED LIST changes: -HYDR200T3 PO; +HYDR200T46 PO; -NIFE90TA20 PO; +NIFE90TA46 PO
[2023-02-03 08:31] LABS: ALBUMIN 2.6 G/DL (3.2-5.2); ALKALINE PHOSPHATASE 75 U/L (46-116); ALT/SGPT < 9 U/L (7.0-40); AST/SGOT 10 U/L (<34); BILIRUBIN,DIRECT < 0.1 MG/DL (<0.4); BILIRUBIN,TOTAL 0.2 MG/DL (0.3-1.2); CHOLESTEROL LEVEL 134 MG/DL (<200); CHOLESTEROL RISK RATIO 3.21 (<5); HDL CHOLESTEROL 41.7 MG/DL (>40); LDL CHOLESTEROL 82.3 MG/DL (<100); NON-HDL-C 92.3 MG/DL; TOTAL PROTEIN 5.9 G/DL (5.7-8.2); TRIGLYCERIDES LEVEL 50 MG/DL (<150)
== END ==
LOC: SKLAB3 07:00
PROVIDERS: ATTEND Nurse Practitioner
DX: M06.9 Rheumatoid arthritis, unspecified (principal); Z79.899 Other long term (current) drug therapy

== ENCOUNTER → 2023-02-10 | Outpatient (CLI) | payer MEDICARE, MEDICAID ==
[~2023-02-10] MED LIST changes: +E-Z-PAQUE 96% w/w SUSP 176GM BTL As Ordered ONE; +VARIBAR NECTAR 40% w/v 240ML SUSP BTL As Ordered ONE; +VARIBAR PUDDING 40% w/v 230ML TUBE As Ordered ONE
== END ==
LOC: M RAD 10:30
PROVIDERS: ATTEND Otolaryngology
DX: C01 Malignant neoplasm of base of tongue (principal)

== ENCOUNTER → 2023-02-11 | Outpatient (REF) | payer MEDICARE, MEDICAID ==
[~2023-02-11] MED LIST changes: -E-Z-PAQUE 96% w/w SUSP 176GM BTL As Ordered ONE; -VARIBAR NECTAR 40% w/v 240ML SUSP BTL As Ordered ONE; -VARIBAR PUDDING 40% w/v 230ML TUBE As Ordered ONE
[2023-02-11 07:03] LABS: HEMATOCRIT 37.7 % (36.0-47.0); HEMOGLOBIN 11.8 g/dl (12.0-15.5); MEAN CORPUSCULAR HEMOGLOBIN 29.1 pg (27.0-33.0); MEAN CORPUSCULAR HGB CONC 31.3 g/dl (32.0-36.5); MEAN CORPUSCULAR VOLUME 93.1 fl (80.0-96.0); PLATELET COUNT, AUTOMATED 355 10^3/uL (150-450); RED BLOOD COUNT 4.05 10^6/uL (4.00-5.40); WHITE BLOOD COUNT 7.9 10^3/uL (4.0-10.0)
[2023-02-11 07:11] LABS: ERYTHROCYTE SEDIMENTATION RATE 104 mm/hr (0-30)
== END ==
LOC: SKLAB3 07:00
PROVIDERS: ATTEND Nurse Practitioner
DX: T84.53XD Infection and inflammatory reaction due to internal right knee prosthesis, subsequent encounter (principal)

== ENCOUNTER → 2023-04-07 | Outpatient (REF) | payer MEDICARE, MEDICAID ==
[2023-04-07 06:15] LABS: HEMATOCRIT 35.4 % (36.0-47.0); HEMOGLOBIN 11.1 g/dl (12.0-15.5); MEAN CORPUSCULAR HEMOGLOBIN 27.5 pg (27.0-33.0); MEAN CORPUSCULAR HGB CONC 31.4 g/dl (32.0-36.5); MEAN CORPUSCULAR VOLUME 87.8 fl (80.0-96.0); PLATELET COUNT, AUTOMATED 315 10^3/uL (150-450); RED BLOOD COUNT 4.03 10^6/uL (4.00-5.40); WHITE BLOOD COUNT 7.1 10^3/uL (4.0-10.0)
[2023-04-07 06:34] LABS: ERYTHROCYTE SEDIMENTATION RATE 77 mm/hr (0-30)
== END ==
LOC: SKLAB3 10:38
PROVIDERS: ATTEND Nurse Practitioner
DX: T84.53XD Infection and inflammatory reaction due to internal right knee prosthesis, subsequent encounter (principal)

== ENCOUNTER → 2023-04-09 | Outpatient (REF) | payer MEDICARE, MEDICAID ==
[2023-04-09 07:08] LABS: BASO % 0.3 % (0.0-1.0); EOS # 0.4 10^3/uL (0.0-0.5); EOS % 5.6 % (0.0-3.0); HEMOGLOBIN 11.4 g/dl (12.0-15.5); LYMPH % 14.1 % (24.0-44.0); MEAN CORPUSCULAR HEMOGLOBIN 27.5 pg (27.0-33.0); MEAN CORPUSCULAR HGB CONC 30.8 g/dl (32.0-36.5); MEAN CORPUSCULAR VOLUME 89.4 fl (80.0-96.0); MONO # 0.7 10^3/uL (0.0-0.8); MONO % 9.8 % (2.0-8.0); NEUTROPHILS # 5.1 10^3/uL (1.5-8.5); NEUTROPHILS % 69.9 % (36.0-66.0); PLATELET COUNT, AUTOMATED 331 10^3/uL (150-450); RED BLOOD COUNT 4.14 10^6/uL (4.00-5.40); WHITE BLOOD COUNT 7.3 10^3/uL (4.0-10.0)
[2023-04-09 07:28] LABS: BLOOD UREA NITROGEN 18 MG/DL (9-23); CARBON DIOXIDE LEVEL 32 MMOL/L (20-31); CHLORIDE LEVEL 104 MMOL/L (98-107); CREATININE FOR GFR 0.37 MG/DL (0.55-1.30); GLOMERULAR FILTRATION RATE > 60.0 (>39); GLUCOSE, FASTING 118 MG/DL (74-106); POTASSIUM SERUM 4.3 MMOL/L (3.5-5.1); SODIUM LEVEL 142 MMOL/L (136-145)
[2023-04-09 07:31] LABS: INR 1.03; PROTHROMBIN TIME 13.2 SECONDS (12.5-14.5)
[2023-04-09 07:32] LABS: PARTIAL THROMBOPLASTIN TIME 27.8 SECONDS (24.8-34.2)
[2023-04-09 07:50] LABS: ERYTHROCYTE SEDIMENTATION RATE 51 mm/hr (0-30)
== END ==
LOC: SKLAB3 07:00
PROVIDERS: ATTEND Nurse Practitioner Adult Health
DX: Z01.818 Encounter for other preprocedural examination (principal)

== ENCOUNTER → 2023-06-02 | Outpatient (REF) | payer MEDICARE, MEDICAID ==
[2023-06-02 09:38] LABS: BASO % 0.3 % (0.0-1.0); EOS # 0.3 10^3/uL (0.0-0.5); EOS % 3.9 % (0.0-3.0); HEMATOCRIT 36.8 % (36.0-47.0); HEMOGLOBIN 11.7 g/dl (12.0-15.5); LYMPH # 0.8 10^3/uL (1.5-5.0); LYMPH % 10.6 % (24.0-44.0); MEAN CORPUSCULAR HEMOGLOBIN 29.4 pg (27.0-33.0); MEAN CORPUSCULAR HGB CONC 31.8 g/dl (32.0-36.5); MEAN CORPUSCULAR VOLUME 92.5 fl (80.0-96.0); MONO # 0.6 10^3/uL (0.0-0.8); MONO % 7.6 % (2.0-8.0); NEUTROPHILS % 77.3 % (36.0-66.0); PLATELET COUNT, AUTOMATED 360 10^3/uL (150-450); RED BLOOD COUNT 3.98 10^6/uL (4.00-5.40); WHITE BLOOD COUNT 7.8 10^3/uL (4.0-10.0)
[2023-06-02 09:46] LABS: ERYTHROCYTE SEDIMENTATION RATE 127 mm/hr (0-30)
[2023-06-02 09:59] LABS: BLOOD UREA NITROGEN 18 MG/DL (9-23); CALCIUM LEVEL 9.4 MG/DL (8.3-10.6); CARBON DIOXIDE LEVEL 31 MMOL/L (20-31); CHLORIDE LEVEL 101 MMOL/L (98-107); CREATININE FOR GFR 0.38 MG/DL (0.55-1.30); GLOMERULAR FILTRATION RATE > 60.0 (>39); GLUCOSE, FASTING 94 MG/DL (74-106); POTASSIUM SERUM 4.5 MMOL/L (3.5-5.1); SODIUM LEVEL 139 MMOL/L (136-145)
== END ==
LOC: SKLAB3 07:00
PROVIDERS: ATTEND Nurse Practitioner
DX: T84.53XD Infection and inflammatory reaction due to internal right knee prosthesis, subsequent encounter (principal); Z79.899 Other long term (current) drug therapy

== ENCOUNTER → 2023-06-17 | Outpatient (REF) | payer MEDICARE, MEDICAID ==
[2023-06-17 07:03] LABS: BASO % 0.3 % (0.0-1.0); EOS # 0.4 10^3/uL (0.0-0.5); EOS % 6.6 % (0.0-3.0); HEMATOCRIT 37.4 % (36.0-47.0); HEMOGLOBIN 12.1 g/dl (12.0-15.5); LYMPH # 1.2 10^3/uL (1.5-5.0); MEAN CORPUSCULAR HEMOGLOBIN 29.6 pg (27.0-33.0); MEAN CORPUSCULAR HGB CONC 32.4 g/dl (32.0-36.5); MEAN CORPUSCULAR VOLUME 91.4 fl (80.0-96.0); MONO # 0.6 10^3/uL (0.0-0.8); MONO % 10.4 % (2.0-8.0); NEUTROPHILS # 3.6 10^3/uL (1.5-8.5); NEUTROPHILS % 61.5 % (36.0-66.0); PLATELET COUNT, AUTOMATED 310 10^3/uL (150-450); RED BLOOD COUNT 4.09 10^6/uL (4.00-5.40); WHITE BLOOD COUNT 5.8 10^3/uL (4.0-10.0)
[2023-06-17 08:05] LABS: ERYTHROCYTE SEDIMENTATION RATE 67 mm/hr (0-30)
== END ==
LOC: SKLAB3 07:00
PROVIDERS: ATTEND Nurse Practitioner Adult Health
DX: M06.9 Rheumatoid arthritis, unspecified (principal)

== ENCOUNTER → 2023-06-19 | Outpatient (CLI) | payer MEDICARE, MEDICAID ==
[~2023-06-19] MED LIST changes: +BARIUM SULFATE 700 MG TABLET (E-Z-DISK) As Ordered ONE; +E-Z-PAQUE 96% w/w SUSP 176GM BTL As Ordered ONE; +VARIBAR NECTAR 40% w/v 240ML SUSP BTL As Ordered ONE; +VARIBAR PUDDING 40% w/v 230ML TUBE As Ordered ONE
== END ==
LOC: M RAD 12:34
PROVIDERS: ATTEND Otolaryngology
DX: C01 Malignant neoplasm of base of tongue (principal)

== ENCOUNTER → 2023-07-07 | Outpatient (REF) | payer MEDICARE, MEDICAID ==
[~2023-07-07] MED LIST changes: -BARIUM SULFATE 700 MG TABLET (E-Z-DISK) As Ordered ONE; -E-Z-PAQUE 96% w/w SUSP 176GM BTL As Ordered ONE; -VARIBAR NECTAR 40% w/v 240ML SUSP BTL As Ordered ONE; -VARIBAR PUDDING 40% w/v 230ML TUBE As Ordered ONE
[2023-07-07 08:01] LABS: BASO % 0.3 % (0.0-1.0); EOS # 0.4 10^3/uL (0.0-0.5); EOS % 5.6 % (0.0-3.0); HEMATOCRIT 40.4 % (36.0-47.0); HEMOGLOBIN 12.7 g/dl (12.0-15.5); LYMPH # 1.3 10^3/uL (1.5-5.0); LYMPH % 19.9 % (24.0-44.0); MEAN CORPUSCULAR HEMOGLOBIN 29.2 pg (27.0-33.0); MEAN CORPUSCULAR HGB CONC 31.4 g/dl (32.0-36.5); MEAN CORPUSCULAR VOLUME 92.9 fl (80.0-96.0); MONO # 0.5 10^3/uL (0.0-0.8); NEUTROPHILS # 4.4 10^3/uL (1.5-8.5); PLATELET COUNT, AUTOMATED 284 10^3/uL (150-450); RED BLOOD COUNT 4.35 10^6/uL (4.00-5.40); WHITE BLOOD COUNT 6.6 10^3/uL (4.0-10.0)
[2023-07-07 08:29] LABS: C REACTIVE PROTEIN QUANTITATIV < 0.40 MG/DL (<1.0)
[2023-07-07 08:31] LABS: ALBUMIN 2.8 G/DL (3.2-5.2); ALKALINE PHOSPHATASE 87 U/L (46-116); ALT/SGPT 9 U/L (7.0-40); AST/SGOT 15 U/L (<34); BILIRUBIN,DIRECT < 0.1 MG/DL (<0.4); BILIRUBIN,TOTAL < 0.2 MG/DL (0.3-1.2); BLOOD UREA NITROGEN 12 MG/DL (9-23); CARBON DIOXIDE LEVEL 28 MMOL/L (20-31); CHLORIDE LEVEL 106 MMOL/L (98-107); CREATININE FOR GFR 0.37 MG/DL (0.55-1.30); GLOMERULAR FILTRATION RATE > 60.0 (>39); GLUCOSE, FASTING 93 MG/DL (74-106); POTASSIUM SERUM 4.6 MMOL/L (3.5-5.1); SODIUM LEVEL 142 MMOL/L (136-145); TOTAL PROTEIN 6.6 G/DL (5.7-8.2)
[2023-07-07 08:40] LABS: ERYTHROCYTE SEDIMENTATION RATE 81 mm/hr (0-30)
== END ==
LOC: SKLAB3 07:00
PROVIDERS: ATTEND Internal Medicine
DX: D64.9 Anemia, unspecified (principal); I10 Essential (primary) hypertension; Z51.81 Encounter for therapeutic drug level monitoring

== ENCOUNTER → 2023-07-17 | Outpatient (REF) | payer MEDICARE, MEDICAID ==
[2023-07-17 08:29] LABS: BASO % 0.3 % (0.0-1.0); EOS # 0.5 10^3/uL (0.0-0.5); EOS % 7.1 % (0.0-3.0); HEMATOCRIT 38.8 % (36.0-47.0); HEMOGLOBIN 12.5 g/dl (12.0-15.5); LYMPH # 1.3 10^3/uL (1.5-5.0); LYMPH % 17.7 % (24.0-44.0); MEAN CORPUSCULAR HGB CONC 32.2 g/dl (32.0-36.5); MEAN CORPUSCULAR VOLUME 93.3 fl (80.0-96.0); MONO # 0.6 10^3/uL (0.0-0.8); MONO % 8.2 % (2.0-8.0); NEUTROPHILS # 4.8 10^3/uL (1.5-8.5); NEUTROPHILS % 66.4 % (36.0-66.0); PLATELET COUNT, AUTOMATED 317 10^3/uL (150-450); RED BLOOD COUNT 4.16 10^6/uL (4.00-5.40); WHITE BLOOD COUNT 7.2 10^3/uL (4.0-10.0)
[2023-07-17 08:42] LABS: ERYTHROCYTE SEDIMENTATION RATE 72 mm/hr (0-30)
== END ==
LOC: SKLAB3 11:00
PROVIDERS: ATTEND Nurse Practitioner Adult Health
DX: M06.9 Rheumatoid arthritis, unspecified (principal)

== ENCOUNTER → 2023-08-04 | Outpatient (REF) | payer MEDICARE, MEDICAID ==
[2023-08-04 10:12] LABS: BASO % 0.2 % (0.0-1.0); EOS # 0.6 10^3/uL (0.0-0.5); EOS % 5.6 % (0.0-3.0); HEMATOCRIT 39.7 % (36.0-47.0); HEMOGLOBIN 12.4 g/dl (12.0-15.5); LYMPH # 1.5 10^3/uL (1.5-5.0); LYMPH % 14.5 % (24.0-44.0); MEAN CORPUSCULAR HEMOGLOBIN 29.2 pg (27.0-33.0); MEAN CORPUSCULAR HGB CONC 31.2 g/dl (32.0-36.5); MEAN CORPUSCULAR VOLUME 93.6 fl (80.0-96.0); MONO # 0.7 10^3/uL (0.0-0.8); MONO % 6.8 % (2.0-8.0); NEUTROPHILS # 7.3 10^3/uL (1.5-8.5); NEUTROPHILS % 72.5 % (36.0-66.0); PLATELET COUNT, AUTOMATED 304 10^3/uL (150-450); RED BLOOD COUNT 4.24 10^6/uL (4.00-5.40)
[2023-08-04 10:23] LABS: ERYTHROCYTE SEDIMENTATION RATE 84 mm/hr (0-30)
[2023-08-04 10:44] LABS: BLOOD UREA NITROGEN 12 MG/DL (9-23); CALCIUM LEVEL 9.2 MG/DL (8.3-10.6); CARBON DIOXIDE LEVEL 27 MMOL/L (20-31); CHLORIDE LEVEL 107 MMOL/L (98-107); CREATININE FOR GFR 0.39 MG/DL (0.55-1.30); GLOMERULAR FILTRATION RATE > 60.0 (>39); GLUCOSE, FASTING 110 MG/DL (74-106); POTASSIUM SERUM 4.3 MMOL/L (3.5-5.1); SODIUM LEVEL 140 MMOL/L (136-145)
[2023-08-04 10:45] LABS: ALBUMIN 2.9 G/DL (3.2-5.2); ALKALINE PHOSPHATASE 82 U/L (46-116); ALT/SGPT < 9 U/L (7.0-40); AST/SGOT < 8 U/L (<34); BILIRUBIN,TOTAL 0.2 MG/DL (0.3-1.2); BLOOD UREA NITROGEN 11 MG/DL (9-23); CALCIUM LEVEL 9.2 MG/DL (8.3-10.6); CARBON DIOXIDE LEVEL 27 MMOL/L (20-31); CHLORIDE LEVEL 107 MMOL/L (98-107); CREATININE FOR GFR 0.39 MG/DL (0.55-1.30); GLOMERULAR FILTRATION RATE > 60.0 (>39); GLUCOSE, FASTING 110 MG/DL (74-106); POTASSIUM SERUM 4.3 MMOL/L (3.5-5.1); SODIUM LEVEL 141 MMOL/L (136-145); TOTAL PROTEIN 6.4 G/DL (5.7-8.2)
== END ==
LOC: SKLAB3 08:38
PROVIDERS: ATTEND Internal Medicine
DX: Z79.899 Other long term (current) drug therapy (principal)

== ENCOUNTER → 2023-08-23 | Outpatient (REF) | payer MEDICARE, MEDICAID | LOC: SKLAB3 14:04 | PROVIDERS: ATTEND Internal Medicine | DX: R09.89 Other specified symptoms and signs involving the circulatory and respiratory systems (principal) ==

== ENCOUNTER → 2023-09-01 | Outpatient (REF) | payer MEDICARE, MEDICAID ==
[2023-09-01 11:14] LABS: BASO % 0.2 % (0.0-1.0); EOS # 0.5 10^3/uL (0.0-0.5); EOS % 4.9 % (0.0-3.0); HEMATOCRIT 37.7 % (36.0-47.0); HEMOGLOBIN 11.9 g/dl (12.0-15.5); LYMPH # 1.4 10^3/uL (1.5-5.0); LYMPH % 14.7 % (24.0-44.0); MEAN CORPUSCULAR HEMOGLOBIN 29.2 pg (27.0-33.0); MEAN CORPUSCULAR HGB CONC 31.6 g/dl (32.0-36.5); MEAN CORPUSCULAR VOLUME 92.4 fl (80.0-96.0); MONO # 0.8 10^3/uL (0.0-0.8); MONO % 8.1 % (2.0-8.0); NEUTROPHILS % 71.6 % (36.0-66.0); PLATELET COUNT, AUTOMATED 335 10^3/uL (150-450); RED BLOOD COUNT 4.08 10^6/uL (4.00-5.40); WHITE BLOOD COUNT 9.7 10^3/uL (4.0-10.0)
[2023-09-01 11:44] LABS: C REACTIVE PROTEIN QUANTITATIV < 0.40 MG/DL (<1.0); ERYTHROCYTE SEDIMENTATION RATE 73 mm/hr (0-30)
[2023-09-01 11:46] LABS: ALBUMIN 2.8 G/DL (3.2-5.2); ALKALINE PHOSPHATASE 84 U/L (46-116); ALT/SGPT 11 U/L (7.0-40); AST/SGOT 14 U/L (<34); BILIRUBIN,DIRECT < 0.1 MG/DL (<0.4); BILIRUBIN,TOTAL 0.2 MG/DL (0.3-1.2); BLOOD UREA NITROGEN 14 MG/DL (9-23); CALCIUM LEVEL 8.9 MG/DL (8.3-10.6); CARBON DIOXIDE LEVEL 30 MMOL/L (20-31); CHLORIDE LEVEL 104 MMOL/L (98-107); CREATININE FOR GFR 0.42 MG/DL (0.55-1.30); GLOMERULAR FILTRATION RATE > 60.0 (>39); GLUCOSE, FASTING 96 MG/DL (74-106); POTASSIUM SERUM 4.8 MMOL/L (3.5-5.1); SODIUM LEVEL 138 MMOL/L (136-145); TOTAL PROTEIN 6.3 G/DL (5.7-8.2)
== END ==
LOC: SKLAB3 10:15
PROVIDERS: ATTEND Internal Medicine
DX: Z79.899 Other long term (current) drug therapy (principal)

== ENCOUNTER → 2023-09-21 | Outpatient (REF) | payer MEDICARE, MEDICAID ==
[2023-09-21 11:53] LABS: BASO % 0.3 % (0.0-1.0); EOS # 0.4 10^3/uL (0.0-0.5); EOS % 3.3 % (0.0-3.0); HEMATOCRIT 39.8 % (36.0-47.0); HEMOGLOBIN 12.7 g/dl (12.0-15.5); LYMPH # 1.4 10^3/uL (1.5-5.0); LYMPH % 11.3 % (24.0-44.0); MEAN CORPUSCULAR HEMOGLOBIN 30.2 pg (27.0-33.0); MEAN CORPUSCULAR HGB CONC 31.9 g/dl (32.0-36.5); MEAN CORPUSCULAR VOLUME 94.5 fl (80.0-96.0); MONO # 0.9 10^3/uL (0.0-0.8); MONO % 7.4 % (2.0-8.0); NEUTROPHILS # 9.8 10^3/uL (1.5-8.5); NEUTROPHILS % 77.3 % (36.0-66.0); PLATELET COUNT, AUTOMATED 314 10^3/uL (150-450); RED BLOOD COUNT 4.21 10^6/uL (4.00-5.40); WHITE BLOOD COUNT 12.6 10^3/uL (4.0-10.0)
[2023-09-21 12:18] LABS: ALBUMIN 2.9 G/DL (3.2-5.2); ALKALINE PHOSPHATASE 95 U/L (46-116); ALT/SGPT < 9 U/L (7.0-40); AST/SGOT 9 U/L (<34); BILIRUBIN,TOTAL 0.3 MG/DL (0.3-1.2); BLOOD UREA NITROGEN 15 MG/DL (9-23); CALCIUM LEVEL 9.5 MG/DL (8.3-10.6); CARBON DIOXIDE LEVEL 29 MMOL/L (20-31); CHLORIDE LEVEL 102 MMOL/L (98-107); CREATININE FOR GFR 0.44 MG/DL (0.55-1.30); GLOMERULAR FILTRATION RATE > 60.0 (>39); GLUCOSE, FASTING 99 MG/DL (74-106); POTASSIUM SERUM 4.7 MMOL/L (3.5-5.1); SODIUM LEVEL 137 MMOL/L (136-145)
== END ==
LOC: SKLAB3 08:05
PROVIDERS: ATTEND Internal Medicine
DX: Z01.818 Encounter for other preprocedural examination (principal); H25.9 Unspecified age-related cataract; J98.11 Atelectasis

== ENCOUNTER → 2023-09-21 | Outpatient (CLI) | payer MEDICARE, MEDICAID | LOC: M RAD 09:43 | PROVIDERS: ATTEND Internal Medicine | DX: Z01.818 Encounter for other preprocedural examination (principal); Z98.49 Cataract extraction status, unspecified eye ==

== ENCOUNTER → 2023-10-06 | Outpatient (REF) | payer MEDICARE, MEDICAID ==
[~2023-10-06] MED LIST changes: +AMOX875T PO; +ATOR1TAB19 PO; +PRED25TA PO; -RISP-7 PO; +RISP0.5T82 PO
[2023-10-06 13:17] LABS: BASO % 0.4 % (0.0-1.0); EOS # 0.3 10^3/uL (0.0-0.5); EOS % 3.4 % (0.0-3.0); HEMATOCRIT 38.6 % (36.0-47.0); HEMOGLOBIN 12.5 g/dl (12.0-15.5); LYMPH # 1.3 10^3/uL (1.5-5.0); LYMPH % 12.8 % (24.0-44.0); MEAN CORPUSCULAR HEMOGLOBIN 30.8 pg (27.0-33.0); MEAN CORPUSCULAR HGB CONC 32.4 g/dl (32.0-36.5); MEAN CORPUSCULAR VOLUME 95.1 fl (80.0-96.0); MONO # 0.6 10^3/uL (0.0-0.8); NEUTROPHILS # 7.7 10^3/uL (1.5-8.5); PLATELET COUNT, AUTOMATED 348 10^3/uL (150-450); RED BLOOD COUNT 4.06 10^6/uL (4.00-5.40)
[2023-10-06 13:34] LABS: ERYTHROCYTE SEDIMENTATION RATE 71 mm/hr (0-30)
[2023-10-06 13:53] LABS: ALBUMIN 2.9 G/DL (3.2-5.2); ALKALINE PHOSPHATASE 94 U/L (46-116); ALT/SGPT 9 U/L (7.0-40); AST/SGOT 9 U/L (<34); BILIRUBIN,DIRECT < 0.1 MG/DL (<0.4); BILIRUBIN,TOTAL 0.3 MG/DL (0.3-1.2); BLOOD UREA NITROGEN 14 MG/DL (9-23); CALCIUM LEVEL 9.3 MG/DL (8.3-10.6); CARBON DIOXIDE LEVEL 27 MMOL/L (20-31); CHLORIDE LEVEL 104 MMOL/L (98-107); CREATININE FOR GFR 0.44 MG/DL (0.55-1.30); GLOMERULAR FILTRATION RATE > 60.0 (>39); GLUCOSE, FASTING 105 MG/DL (74-106); POTASSIUM SERUM 4.6 MMOL/L (3.5-5.1); SODIUM LEVEL 139 MMOL/L (136-145); TOTAL PROTEIN 6.6 G/DL (5.7-8.2)
== END ==
LOC: SKLAB3 11:15
PROVIDERS: ATTEND Internal Medicine
DX: Z51.81 Encounter for therapeutic drug level monitoring (principal); Z79.899 Other long term (current) drug therapy

== ENCOUNTER → 2023-10-09 | Outpatient (CLI) | payer MEDICARE, MEDICAID | LOC: M RAD 07:26 | PROVIDERS: ATTEND Internal Medicine | DX: Z53.9 Procedure and treatment not carried out, unspecified reason (principal) ==

== ENCOUNTER → 2023-10-09 | Outpatient (REF) | payer MEDICARE, MEDICAID | LOC: SKLAB3 06:47 | PROVIDERS: ATTEND Internal Medicine | DX: Z01.818 Encounter for other preprocedural examination (principal) ==

== ENCOUNTER → 2023-10-16 | Outpatient (REF) | payer MEDICARE, MEDICAID ==
[~2023-10-16] MED LIST changes: -SENN1TAB41 PO; +SENN1TAB85 PO
[2023-10-16 09:08] LABS: HEMATOCRIT 37.5 % (36.0-47.0); HEMOGLOBIN 12.1 g/dl (12.0-15.5); MEAN CORPUSCULAR HEMOGLOBIN 31.1 pg (27.0-33.0); MEAN CORPUSCULAR HGB CONC 32.3 g/dl (32.0-36.5); MEAN CORPUSCULAR VOLUME 96.4 fl (80.0-96.0); PLATELET COUNT, AUTOMATED 336 10^3/uL (150-450); RED BLOOD COUNT 3.89 10^6/uL (4.00-5.40); WHITE BLOOD COUNT 8.4 10^3/uL (4.0-10.0)
[2023-10-16 09:20] LABS: ERYTHROCYTE SEDIMENTATION RATE 100 mm/hr (0-30)
== END ==
LOC: SKLAB3 06:30
PROVIDERS: ATTEND Internal Medicine
DX: M06.9 Rheumatoid arthritis, unspecified (principal)

== ENCOUNTER → 2023-11-03 | Outpatient (REF) | payer MEDICARE, MEDICAID ==
[2023-11-03 09:41] LABS: BASO % 0.4 % (0.0-1.0); EOS # 0.4 10^3/uL (0.0-0.5); HEMATOCRIT 39.7 % (36.0-47.0); HEMOGLOBIN 12.8 g/dl (12.0-15.5); LYMPH # 1.4 10^3/uL (1.5-5.0); LYMPH % 14.5 % (24.0-44.0); MEAN CORPUSCULAR HEMOGLOBIN 31.3 pg (27.0-33.0); MEAN CORPUSCULAR HGB CONC 32.2 g/dl (32.0-36.5); MEAN CORPUSCULAR VOLUME 97.1 fl (80.0-96.0); MONO # 0.7 10^3/uL (0.0-0.8); MONO % 7.2 % (2.0-8.0); NEUTROPHILS # 6.9 10^3/uL (1.5-8.5); NEUTROPHILS % 73.7 % (36.0-66.0); PLATELET COUNT, AUTOMATED 310 10^3/uL (150-450); RED BLOOD COUNT 4.09 10^6/uL (4.00-5.40); WHITE BLOOD COUNT 9.4 10^3/uL (4.0-10.0)
[2023-11-03 10:09] LABS: ALKALINE PHOSPHATASE 94 U/L (46-116); ALT/SGPT 9 U/L (7.0-40); AST/SGOT 9 U/L (<34); BILIRUBIN,DIRECT < 0.1 MG/DL (<0.4); BILIRUBIN,TOTAL 0.3 MG/DL (0.3-1.2); BLOOD UREA NITROGEN 16 MG/DL (9-23); CALCIUM LEVEL 9.4 MG/DL (8.3-10.6); CARBON DIOXIDE LEVEL 30 MMOL/L (20-31); CHLORIDE LEVEL 106 MMOL/L (98-107); CREATININE FOR GFR 0.43 MG/DL (0.55-1.30); GLOMERULAR FILTRATION RATE > 60.0 (>39); GLUCOSE, FASTING 124 MG/DL (74-106); POTASSIUM SERUM 4.2 MMOL/L (3.5-5.1); SODIUM LEVEL 141 MMOL/L (136-145); TOTAL PROTEIN 6.6 G/DL (5.7-8.2)
== END ==
LOC: SKLAB3 10:31
PROVIDERS: ATTEND Nurse Practitioner
DX: D64.9 Anemia, unspecified (principal); I10 Essential (primary) hypertension

== ENCOUNTER → 2023-11-18 | Outpatient (REF) | payer MEDICARE, MEDICAID ==
[2023-11-18 16:24] LABS: AMORPHOUS SEDIMENT SMALL (NEGATIVE); APPEARANCE, URINE HAZY (CLEAR); BACTERIA, URINE AUTO NEGATIVE (NEGATIVE); BILIRUBIN, URINE AUTO NEGATIVE (NEGATIVE); BLOOD, URINE BLOOD NEGATIVE (NEGATIVE); COLOR, URINE YELLOW (YELLOW); GLUCOSE, URINE (UA) AUTO NEGATIVE (NEGATIVE); KETONE, URINE AUTO NEGATIVE (NEGATIVE); LEUKOCYTE ESTERASE, URINE AUTO NEGATIVE (NEGATIVE); MUCUS, URINE SMALL (NEGATIVE); NITRITE, URINE AUTO NEGATIVE (NEGATIVE); PROTEIN, URINE AUTO NEGATIVE (NEGATIVE); RBC, URINE AUTO 1 /HPF (0-3); SQUAMOUS EPITHELIAL CELL UR AU 0 /HPF (0-6); UROBILINOGEN, URINE AUTO 0.2 mg/dL (0.0-2.0); WBC, URINE AUTO 2 /HPF (0-3)
== END ==
LOC: SKLAB3 14:43
PROVIDERS: ATTEND Nurse Practitioner
DX: R35.0 Frequency of micturition (principal)

== ENCOUNTER → 2023-11-19 | Outpatient (REF) | LOC: SKLAB3 21:09 | PROVIDERS: ATTEND Internal Medicine | DX: N89.8 Other specified noninflammatory disorders of vagina (principal) ==

== ENCOUNTER → 2023-12-09 | Outpatient (REF) | payer MEDICARE, MEDICAID ==
[2023-12-09 09:28] LABS: BASO % 0.3 % (0.0-1.0); EOS # 0.3 10^3/uL (0.0-0.5); EOS % 2.8 % (0.0-3.0); HEMATOCRIT 39.8 % (36.0-47.0); HEMOGLOBIN 12.7 g/dl (12.0-15.5); LYMPH # 1.5 10^3/uL (1.5-5.0); LYMPH % 14.9 % (24.0-44.0); MEAN CORPUSCULAR HEMOGLOBIN 31.1 pg (27.0-33.0); MEAN CORPUSCULAR HGB CONC 31.9 g/dl (32.0-36.5); MEAN CORPUSCULAR VOLUME 97.3 fl (80.0-96.0); MONO # 0.7 10^3/uL (0.0-0.8); MONO % 6.6 % (2.0-8.0); NEUTROPHILS # 7.6 10^3/uL (1.5-8.5); NEUTROPHILS % 74.9 % (36.0-66.0); PLATELET COUNT, AUTOMATED 318 10^3/uL (150-450); RED BLOOD COUNT 4.09 10^6/uL (4.00-5.40); WHITE BLOOD COUNT 10.1 10^3/uL (4.0-10.0)
[2023-12-09 09:35] LABS: ERYTHROCYTE SEDIMENTATION RATE 89 mm/hr (0-30)
[2023-12-09 10:35] LABS: ALBUMIN 2.8 G/DL (3.2-5.2); ALKALINE PHOSPHATASE 100 U/L (46-116); ALT/SGPT < 9 U/L (7.0-40); AST/SGOT 10 U/L (<34); BILIRUBIN,DIRECT < 0.1 MG/DL (<0.4); BILIRUBIN,TOTAL 0.2 MG/DL (0.3-1.2); BLOOD UREA NITROGEN 15 MG/DL (9-23); CARBON DIOXIDE LEVEL 29 MMOL/L (20-31); CHLORIDE LEVEL 103 MMOL/L (98-107); CREATININE FOR GFR 0.42 MG/DL (0.55-1.30); GLOMERULAR FILTRATION RATE > 60.0 (>39); GLUCOSE, FASTING 126 MG/DL (74-106); POTASSIUM SERUM 4.5 MMOL/L (3.5-5.1); SODIUM LEVEL 139 MMOL/L (136-145); TOTAL PROTEIN 6.6 G/DL (5.7-8.2)
== END ==
LOC: SKLAB3 07:00
PROVIDERS: ATTEND Nurse Practitioner
DX: E78.5 Hyperlipidemia, unspecified (principal); D64.9 Anemia, unspecified

== ENCOUNTER → 2023-12-17 | Outpatient (REF) | payer MEDICARE, MEDICAID | LOC: M SFHCWAGY 10:32 | PROVIDERS: ATTEND Nurse Practitioner Family | DX: N73.9 Female pelvic inflammatory disease, unspecified (principal) ==

== ENCOUNTER → 2023-12-24 | Outpatient (CLI) | payer MEDICARE, MEDICAID | LOC: M PAIN 11:30 | PROVIDERS: ATTEND Nurse Practitioner Family | DX: M25.512 Pain in left shoulder (principal); G89.29 Other chronic pain; M06.9 Rheumatoid arthritis, unspecified; D64.9 Anemia, unspecified; F32.A Depression, unspecified; F41.9 Anxiety disorder, unspecified; I10 Essential (primary) hypertension; E78.5 Hyperlipidemia, unspecified; J44.9 Chronic obstructive pulmonary disease, unspecified; K21.9 Gastro-esophageal reflux disease without esophagitis; I73.9 Peripheral vascular disease, unspecified; R13.10 Dysphagia, unspecified; E66.9 Obesity, unspecified; F60.3 Borderline personality disorder; Z68.32 Body mass index [BMI] 32.0-32.9, adult; Z87.891 Personal history of nicotine dependence; Z79.52 Long term (current) use of systemic steroids; Z79.899 Other long term (current) drug therapy ==

== ENCOUNTER → 2023-12-31 | Outpatient (CLI) | payer MEDICARE, MEDICAID | LOC: M RAD 08:26 | PROVIDERS: ATTEND Nurse Practitioner | DX: N93.8 Other specified abnormal uterine and vaginal bleeding (principal) ==

== ENCOUNTER → 2024-02-15 | Outpatient (REF) | payer MEDICARE, MEDICAID ==
[2024-02-15 09:23] LABS: BASO % 0.2 % (0.0-1.0); EOS # 0.3 10^3/uL (0.0-0.5); EOS % 3.1 % (0.0-3.0); HEMATOCRIT 39.9 % (36.0-47.0); HEMOGLOBIN 12.6 g/dl (12.0-15.5); LYMPH # 1.2 10^3/uL (1.5-5.0); MEAN CORPUSCULAR HEMOGLOBIN 30.6 pg (27.0-33.0); MEAN CORPUSCULAR HGB CONC 31.6 g/dl (32.0-36.5); MEAN CORPUSCULAR VOLUME 96.8 fl (80.0-96.0); MONO # 0.7 10^3/uL (0.0-0.8); NEUTROPHILS # 8.7 10^3/uL (1.5-8.5); NEUTROPHILS % 79.3 % (36.0-66.0); PLATELET COUNT, AUTOMATED 341 10^3/uL (150-450); RED BLOOD COUNT 4.12 10^6/uL (4.00-5.40); WHITE BLOOD COUNT 10.9 10^3/uL (4.0-10.0)
[2024-02-15 09:29] LABS: BLOOD UREA NITROGEN 16 MG/DL (9-23); CALCIUM LEVEL 9.3 MG/DL (8.3-10.6); CARBON DIOXIDE LEVEL 28 MMOL/L (20-31); CHLORIDE LEVEL 105 MMOL/L (98-107); CREATININE FOR GFR 0.49 MG/DL (0.55-1.30); GLOMERULAR FILTRATION RATE > 60.0 (>39); GLUCOSE, FASTING 106 MG/DL (74-106); POTASSIUM SERUM 4.8 MMOL/L (3.5-5.1); SODIUM LEVEL 140 MMOL/L (136-145)
[2024-02-15 09:37] LABS: ERYTHROCYTE SEDIMENTATION RATE 118 mm/hr (0-30)
== END ==
LOC: SKLAB3 07:32
PROVIDERS: ATTEND Internal Medicine
DX: Z79.899 Other long term (current) drug therapy (principal)

== ENCOUNTER → 2024-03-08 | Outpatient (REF) | payer MEDICARE, MEDICAID ==
[2024-03-08 10:06] LABS: BASO % 0.3 % (0.0-1.0); EOS # 0.3 10^3/uL (0.0-0.5); EOS % 3.1 % (0.0-3.0); HEMATOCRIT 41.7 % (36.0-47.0); LYMPH # 1.3 10^3/uL (1.5-5.0); LYMPH % 12.5 % (24.0-44.0); MEAN CORPUSCULAR HEMOGLOBIN 30.2 pg (27.0-33.0); MEAN CORPUSCULAR HGB CONC 31.2 g/dl (32.0-36.5); MONO # 0.7 10^3/uL (0.0-0.8); MONO % 6.8 % (2.0-8.0); NEUTROPHILS # 8.2 10^3/uL (1.5-8.5); PLATELET COUNT, AUTOMATED 354 10^3/uL (150-450); WHITE BLOOD COUNT 10.6 10^3/uL (4.0-10.0)
[2024-03-08 10:12] LABS: ERYTHROCYTE SEDIMENTATION RATE 95 mm/hr (0-30)
[2024-03-08 10:25] LABS: ALBUMIN 2.9 G/DL (3.2-5.2); ALKALINE PHOSPHATASE 100 U/L (46-116); ALT/SGPT < 9 U/L (7.0-40); AST/SGOT < 8 U/L (<34); BILIRUBIN,DIRECT < 0.1 MG/DL (<0.4); BILIRUBIN,TOTAL 0.2 MG/DL (0.3-1.2); BLOOD UREA NITROGEN 15 MG/DL (9-23); CALCIUM LEVEL 9.8 MG/DL (8.3-10.6); CARBON DIOXIDE LEVEL 28 MMOL/L (20-31); CHLORIDE LEVEL 105 MMOL/L (98-107); CREATININE FOR GFR 0.48 MG/DL (0.55-1.30); GLOMERULAR FILTRATION RATE > 60.0 (>39); GLUCOSE, FASTING 111 MG/DL (74-106); POTASSIUM SERUM 4.6 MMOL/L (3.5-5.1); SODIUM LEVEL 141 MMOL/L (136-145); TOTAL PROTEIN 6.7 G/DL (5.7-8.2)
== END ==
LOC: SKLAB3 08:28
PROVIDERS: ATTEND Internal Medicine
DX: M06.9 Rheumatoid arthritis, unspecified (principal); Z79.899 Other long term (current) drug therapy

== ENCOUNTER → 2024-03-24 | Outpatient (REF) | payer MEDICARE, MEDICAID ==
[2024-03-24 09:57] LABS: BASO % 0.4 % (0.0-1.0); EOS # 0.4 10^3/uL (0.0-0.5); EOS % 5.2 % (0.0-3.0); HEMOGLOBIN 12.5 g/dl (12.0-15.5); LYMPH # 1.1 10^3/uL (1.5-5.0); LYMPH % 14.2 % (24.0-44.0); MEAN CORPUSCULAR HEMOGLOBIN 30.9 pg (27.0-33.0); MEAN CORPUSCULAR HGB CONC 32.1 g/dl (32.0-36.5); MEAN CORPUSCULAR VOLUME 96.3 fl (80.0-96.0); MONO # 0.5 10^3/uL (0.0-0.8); MONO % 6.5 % (2.0-8.0); NEUTROPHILS # 5.7 10^3/uL (1.5-8.5); NEUTROPHILS % 73.4 % (36.0-66.0); PLATELET COUNT, AUTOMATED 359 10^3/uL (150-450); RED BLOOD COUNT 4.05 10^6/uL (4.00-5.40); WHITE BLOOD COUNT 7.7 10^3/uL (4.0-10.0)
[2024-03-24 10:05] LABS: ERYTHROCYTE SEDIMENTATION RATE 85 mm/hr (0-30)
== END ==
LOC: SKLAB3 07:41
PROVIDERS: ATTEND Internal Medicine
DX: T84.53XD Infection and inflammatory reaction due to internal right knee prosthesis, subsequent encounter (principal)

== ENCOUNTER → 2024-04-05 | Outpatient (REF) | payer MEDICARE, MEDICAID ==
[2024-04-05 11:07] LABS: ALBUMIN 2.7 G/DL (3.2-5.2); ALKALINE PHOSPHATASE 95 U/L (46-116); ALT/SGPT 14 U/L (7.0-40); AST/SGOT 11 U/L (<34); BILIRUBIN,DIRECT < 0.1 MG/DL (<0.4); BILIRUBIN,TOTAL 0.3 MG/DL (0.3-1.2); BLOOD UREA NITROGEN 22 MG/DL (9-23); CALCIUM LEVEL 9.1 MG/DL (8.3-10.6); CARBON DIOXIDE LEVEL 27 MMOL/L (20-31); CHLORIDE LEVEL 105 MMOL/L (98-107); CREATININE FOR GFR 0.43 MG/DL (0.55-1.30); GLOMERULAR FILTRATION RATE > 60.0 (>39); GLUCOSE, FASTING 161 MG/DL (74-106); POTASSIUM SERUM 4.6 MMOL/L (3.5-5.1); SODIUM LEVEL 139 MMOL/L (136-145); TOTAL PROTEIN 6.7 G/DL (5.7-8.2)
== END ==
LOC: SKLAB3 08:06
PROVIDERS: ATTEND Internal Medicine
DX: Z79.899 Other long term (current) drug therapy (principal)

== ENCOUNTER → 2024-05-04 | Outpatient (REF) | payer MEDICARE, MEDICAID ==
[2024-05-04 11:13] LABS: BASO % 0.2 % (0.0-1.0); EOS # 0.4 10^3/uL (0.0-0.5); EOS % 4.3 % (0.0-3.0); HEMATOCRIT 39.8 % (36.0-47.0); LYMPH # 1.3 10^3/uL (1.5-5.0); MEAN CORPUSCULAR HGB CONC 32.7 g/dl (32.0-36.5); MONO # 0.6 10^3/uL (0.0-0.8); MONO % 6.5 % (2.0-8.0); NEUTROPHILS # 7.1 10^3/uL (1.5-8.5); NEUTROPHILS % 74.8 % (36.0-66.0); PLATELET COUNT, AUTOMATED 351 10^3/uL (150-450); RED BLOOD COUNT 4.19 10^6/uL (4.00-5.40); WHITE BLOOD COUNT 9.5 10^3/uL (4.0-10.0)
[2024-05-04 11:29] LABS: ERYTHROCYTE SEDIMENTATION RATE 89 mm/hr (0-30)
[2024-05-04 11:45] LABS: ALBUMIN 2.9 G/DL (3.2-5.2); ALKALINE PHOSPHATASE 106 U/L (46-116); ALT/SGPT 9 U/L (7.0-40); AST/SGOT 9 U/L (<34); BILIRUBIN,DIRECT < 0.1 MG/DL (<0.4); BILIRUBIN,TOTAL 0.2 MG/DL (0.3-1.2); BLOOD UREA NITROGEN 11 MG/DL (9-23); CALCIUM LEVEL 9.8 MG/DL (8.3-10.6); CARBON DIOXIDE LEVEL 31 MMOL/L (20-31); CHLORIDE LEVEL 106 MMOL/L (98-107); CREATININE FOR GFR 0.48 MG/DL (0.55-1.30); GLOMERULAR FILTRATION RATE > 60.0 (>39); GLUCOSE, FASTING 118 MG/DL (74-106); POTASSIUM SERUM 3.9 MMOL/L (3.5-5.1); SODIUM LEVEL 141 MMOL/L (136-145); TOTAL PROTEIN 6.8 G/DL (5.7-8.2)
== END ==
LOC: SKLAB3 05-03 07:00
PROVIDERS: ATTEND Internal Medicine
DX: M06.9 Rheumatoid arthritis, unspecified (principal); Z79.899 Other long term (current) drug therapy

== ENCOUNTER → 2024-06-09 | Outpatient (REF) | payer MEDICARE, MEDICAID ==
[2024-06-09 08:50] LABS: BASO % 0.1 % (0.0-1.0); EOS # 0.4 10^3/uL (0.0-0.5); EOS % 5.8 % (0.0-3.0); HEMATOCRIT 39.2 % (36.0-47.0); HEMOGLOBIN 12.6 g/dl (12.0-15.5); LYMPH # 1.3 10^3/uL (1.5-5.0); LYMPH % 18.5 % (24.0-44.0); MEAN CORPUSCULAR HEMOGLOBIN 29.5 pg (27.0-33.0); MEAN CORPUSCULAR HGB CONC 32.1 g/dl (32.0-36.5); MEAN CORPUSCULAR VOLUME 91.8 fl (80.0-96.0); MONO # 0.4 10^3/uL (0.0-0.8); MONO % 5.2 % (2.0-8.0); NEUTROPHILS # 4.9 10^3/uL (1.5-8.5); NEUTROPHILS % 70.1 % (36.0-66.0); PLATELET COUNT, AUTOMATED 376 10^3/uL (150-450); RED BLOOD COUNT 4.27 10^6/uL (4.00-5.40); WHITE BLOOD COUNT 6.9 10^3/uL (4.0-10.0)
[2024-06-09 08:56] LABS: ERYTHROCYTE SEDIMENTATION RATE 81 mm/hr (0-30)
[2024-06-09 09:08] LABS: ALBUMIN 2.7 G/DL (3.2-5.2); ALKALINE PHOSPHATASE 100 U/L (46-116); ALT/SGPT < 9 U/L (7.0-40); AST/SGOT 10 U/L (<34); BILIRUBIN,DIRECT < 0.1 MG/DL (<0.4); BILIRUBIN,TOTAL 0.3 MG/DL (0.3-1.2); BLOOD UREA NITROGEN 16 MG/DL (9-23); CALCIUM LEVEL 9.3 MG/DL (8.3-10.6); CARBON DIOXIDE LEVEL 27 MMOL/L (20-31); CHLORIDE LEVEL 107 MMOL/L (98-107); CREATININE FOR GFR 0.46 MG/DL (0.55-1.30); GLOMERULAR FILTRATION RATE > 60.0 (>39); GLUCOSE, FASTING 87 MG/DL (74-106); POTASSIUM SERUM 4.7 MMOL/L (3.5-5.1); SODIUM LEVEL 140 MMOL/L (136-145); TOTAL PROTEIN 6.7 G/DL (5.7-8.2)
== END ==
LOC: SKLAB3 07:00
PROVIDERS: ATTEND Internal Medicine
DX: M06.9 Rheumatoid arthritis, unspecified (principal); Z79.899 Other long term (current) drug therapy

== ENCOUNTER → 2024-07-05 | Outpatient (REF) | payer MEDICARE, MEDICAID ==
[~2024-07-05] MED LIST changes: -LIDO1CRE2 EXT; +LIDO4CRE12 EXT; +NYST1POW3 TOP; -NYST1POW9 TOP
[2024-07-05 08:46] LABS: BASO % 0.1 % (0.0-1.0); EOS # 0.7 10^3/uL (0.0-0.5); EOS % 9.4 % (0.0-3.0); HEMATOCRIT 39.5 % (36.0-47.0); HEMOGLOBIN 12.7 g/dl (12.0-15.5); LYMPH % 14.5 % (24.0-44.0); MEAN CORPUSCULAR HEMOGLOBIN 30.1 pg (27.0-33.0); MEAN CORPUSCULAR HGB CONC 32.2 g/dl (32.0-36.5); MEAN CORPUSCULAR VOLUME 93.6 fl (80.0-96.0); MONO # 0.5 10^3/uL (0.0-0.8); MONO % 6.9 % (2.0-8.0); NEUTROPHILS # 4.8 10^3/uL (1.5-8.5); NEUTROPHILS % 68.8 % (36.0-66.0); PLATELET COUNT, AUTOMATED 373 10^3/uL (150-450); RED BLOOD COUNT 4.22 10^6/uL (4.00-5.40)
[2024-07-05 09:07] LABS: ERYTHROCYTE SEDIMENTATION RATE 112 mm/hr (0-30)
[2024-07-05 09:14] LABS: ALBUMIN 2.7 G/DL (3.2-5.2); ALKALINE PHOSPHATASE 97 U/L (35-104); ALT/SGPT < 9 U/L (7.0-40); AST/SGOT < 8 U/L (<34); BILIRUBIN,DIRECT 0.1 MG/DL (<0.4); BILIRUBIN,TOTAL 0.3 MG/DL (0.3-1.2); BLOOD UREA NITROGEN 15 MG/DL (9-23); CALCIUM LEVEL 9.1 MG/DL (8.3-10.6); CARBON DIOXIDE LEVEL 26 MMOL/L (20-31); CHLORIDE LEVEL 106 MMOL/L (98-107); CREATININE FOR GFR 0.46 MG/DL (0.55-1.30); GLOMERULAR FILTRATION RATE > 60.0 (>39); GLUCOSE, FASTING 98 MG/DL (74-106); POTASSIUM SERUM 4.6 MMOL/L (3.5-5.1); SODIUM LEVEL 139 MMOL/L (136-145); TOTAL PROTEIN 6.8 G/DL (5.7-8.2)
== END ==
LOC: SKLAB3 07:00
PROVIDERS: ATTEND Internal Medicine
DX: M06.9 Rheumatoid arthritis, unspecified (principal); Z79.899 Other long term (current) drug therapy

== ENCOUNTER → 2024-08-02 | Outpatient (REF) | payer MEDICARE, MEDICAID ==
[~2024-08-02] MED LIST changes: +PRED1TABL PO
[2024-08-02 09:33] LABS: BASO % 0.2 % (0.0-1.0); EOS # 0.3 10^3/uL (0.0-0.5); EOS % 4.7 % (0.0-3.0); HEMATOCRIT 40.9 % (36.0-47.0); HEMOGLOBIN 12.9 g/dl (12.0-15.5); LYMPH % 14.8 % (24.0-44.0); MEAN CORPUSCULAR HEMOGLOBIN 29.5 pg (27.0-33.0); MEAN CORPUSCULAR HGB CONC 31.5 g/dl (32.0-36.5); MEAN CORPUSCULAR VOLUME 93.4 fl (80.0-96.0); MONO # 0.2 10^3/uL (0.0-0.8); MONO % 3.5 % (2.0-8.0); NEUTROPHILS % 76.5 % (36.0-66.0); PLATELET COUNT, AUTOMATED 392 10^3/uL (150-450); RED BLOOD COUNT 4.38 10^6/uL (4.00-5.40); WHITE BLOOD COUNT 6.6 10^3/uL (4.0-10.0)
[2024-08-02 09:47] LABS: ERYTHROCYTE SEDIMENTATION RATE > 130 mm/hr (0-30)
[2024-08-02 09:56] LABS: ALBUMIN 2.4 G/DL (3.2-5.2); ALKALINE PHOSPHATASE 112 U/L (35-104); ALT/SGPT 10 U/L (7.0-40); AST/SGOT 11 U/L (<34); BILIRUBIN,DIRECT < 0.1 MG/DL (<0.4); BILIRUBIN,TOTAL 0.2 MG/DL (0.3-1.2); BLOOD UREA NITROGEN 17 MG/DL (9-23); C REACTIVE PROTEIN QUANTITATIV 3.92 MG/DL (<1.0); CALCIUM LEVEL 9.5 MG/DL (8.3-10.6); CARBON DIOXIDE LEVEL 30 MMOL/L (20-31); CHLORIDE LEVEL 103 MMOL/L (98-107); CREATININE FOR GFR 0.52 MG/DL (0.55-1.30); GLOMERULAR FILTRATION RATE > 60.0 (>39); GLUCOSE, FASTING 165 MG/DL (74-106); POTASSIUM SERUM 4.2 MMOL/L (3.5-5.1); SODIUM LEVEL 141 MMOL/L (136-145); TOTAL PROTEIN 6.8 G/DL (5.7-8.2)
== END ==
LOC: SKLAB3 07:00
PROVIDERS: ATTEND Internal Medicine
DX: D64.9 Anemia, unspecified (principal); M06.9 Rheumatoid arthritis, unspecified

== ENCOUNTER → 2024-08-08 | Outpatient (REF) | payer MEDICARE, MEDICAID ==
[2024-08-08 10:12] LABS: HEMATOCRIT 37.3 % (36.0-47.0); HEMOGLOBIN 11.9 g/dl (12.0-15.5); MEAN CORPUSCULAR HEMOGLOBIN 29.7 pg (27.0-33.0); MEAN CORPUSCULAR HGB CONC 31.9 g/dl (32.0-36.5); PLATELET COUNT, AUTOMATED 361 10^3/uL (150-450); RED BLOOD COUNT 4.01 10^6/uL (4.00-5.40); WHITE BLOOD COUNT 7.3 10^3/uL (4.0-10.0)
[2024-08-08 10:32] LABS: BLOOD UREA NITROGEN 17 MG/DL (9-23); CALCIUM LEVEL 9.1 MG/DL (8.3-10.6); CARBON DIOXIDE LEVEL 29 MMOL/L (20-31); CHLORIDE LEVEL 104 MMOL/L (98-107); CREATININE FOR GFR 0.51 MG/DL (0.55-1.30); GLOMERULAR FILTRATION RATE > 60.0 (>39); GLUCOSE, FASTING 170 MG/DL (74-106); POTASSIUM SERUM 4.2 MMOL/L (3.5-5.1); SODIUM LEVEL 142 MMOL/L (136-145)
== END ==
LOC: SKLAB3 07:17
PROVIDERS: ATTEND Internal Medicine
DX: Z01.818 Encounter for other preprocedural examination (principal); H26.9 Unspecified cataract

== ENCOUNTER → 2024-09-16 | Outpatient (REF) | payer MEDICARE, MEDICAID ==
[2024-09-16 10:57] LABS: BASO % 0.1 % (0.0-1.0); EOS # 0.8 10^3/uL (0.0-0.5); EOS % 10.6 % (0.0-3.0); HEMATOCRIT 38.7 % (36.0-47.0); HEMOGLOBIN 12.2 g/dl (12.0-15.5); LYMPH # 1.3 10^3/uL (1.5-5.0); LYMPH % 17.2 % (24.0-44.0); MEAN CORPUSCULAR HEMOGLOBIN 30.3 pg (27.0-33.0); MEAN CORPUSCULAR HGB CONC 31.5 g/dl (32.0-36.5); MEAN CORPUSCULAR VOLUME 96.3 fl (80.0-96.0); MONO # 0.3 10^3/uL (0.0-0.8); MONO % 3.7 % (2.0-8.0); NEUTROPHILS # 5.2 10^3/uL (1.5-8.5); PLATELET COUNT, AUTOMATED 401 10^3/uL (150-450); RED BLOOD COUNT 4.02 10^6/uL (4.00-5.40); WHITE BLOOD COUNT 7.6 10^3/uL (4.0-10.0)
[2024-09-16 11:15] LABS: ERYTHROCYTE SEDIMENTATION RATE 99 mm/hr (0-30)
[2024-09-16 11:40] LABS: ALBUMIN 2.5 G/DL (3.2-5.2); ALKALINE PHOSPHATASE 95 U/L (35-104); ALT/SGPT < 9 U/L (7.0-40); AST/SGOT 15 U/L (<34); BILIRUBIN,DIRECT < 0.1 MG/DL (<0.4); BILIRUBIN,TOTAL 0.2 MG/DL (0.3-1.2); BLOOD UREA NITROGEN 18 MG/DL (9-23); CALCIUM LEVEL 9.1 MG/DL (8.3-10.6); CARBON DIOXIDE LEVEL 26 MMOL/L (20-31); CHLORIDE LEVEL 104 MMOL/L (98-107); CREATININE FOR GFR 0.51 MG/DL (0.55-1.30); GLOMERULAR FILTRATION RATE > 60.0 (>39); GLUCOSE, FASTING 142 MG/DL (74-106); POTASSIUM SERUM 4.4 MMOL/L (3.5-5.1); SODIUM LEVEL 140 MMOL/L (136-145); TOTAL PROTEIN 6.6 G/DL (5.7-8.2)
== END ==
LOC: SKLAB3 07:00
PROVIDERS: ATTEND Internal Medicine
DX: M06.9 Rheumatoid arthritis, unspecified (principal); Z79.899 Other long term (current) drug therapy

== ENCOUNTER → 2024-09-19 | Outpatient (REF) | payer MEDICARE, MEDICAID ==
[2024-09-19 10:27] LABS: HEMATOCRIT 38.4 % (36.0-47.0); HEMOGLOBIN 12.2 g/dl (12.0-15.5); MEAN CORPUSCULAR HEMOGLOBIN 30.5 pg (27.0-33.0); MEAN CORPUSCULAR HGB CONC 31.8 g/dl (32.0-36.5); PLATELET COUNT, AUTOMATED 347 10^3/uL (150-450); WHITE BLOOD COUNT 8.8 10^3/uL (4.0-10.0)
== END ==
LOC: SKLAB3 07:43
PROVIDERS: ATTEND Internal Medicine
DX: D50.9 Iron deficiency anemia, unspecified (principal)

== ENCOUNTER → 2024-10-04 | Outpatient (REF) | payer MEDICARE, MEDICAID ==
[2024-10-04 08:37] LABS: BASO % 0.1 % (0.0-1.0); EOS # 1.1 10^3/uL (0.0-0.5); EOS % 12.6 % (0.0-3.0); HEMATOCRIT 41.4 % (36.0-47.0); HEMOGLOBIN 13.1 g/dl (12.0-15.5); LYMPH # 1.5 10^3/uL (1.5-5.0); MEAN CORPUSCULAR HEMOGLOBIN 30.4 pg (27.0-33.0); MEAN CORPUSCULAR HGB CONC 31.6 g/dl (32.0-36.5); MEAN CORPUSCULAR VOLUME 96.1 fl (80.0-96.0); MONO # 0.3 10^3/uL (0.0-0.8); MONO % 3.3 % (2.0-8.0); NEUTROPHILS # 5.6 10^3/uL (1.5-8.5); NEUTROPHILS % 65.6 % (36.0-66.0); PLATELET COUNT, AUTOMATED 367 10^3/uL (150-450); RED BLOOD COUNT 4.31 10^6/uL (4.00-5.40); WHITE BLOOD COUNT 8.5 10^3/uL (4.0-10.0)
[2024-10-04 08:56] LABS: ERYTHROCYTE SEDIMENTATION RATE 73 mm/hr (0-30)
[2024-10-04 09:09] LABS: ALBUMIN 2.6 G/DL (3.2-5.2); ALKALINE PHOSPHATASE 91 U/L (35-104); ALT/SGPT < 9 U/L (7.0-40); AST/SGOT 10 U/L (<34); BILIRUBIN,DIRECT < 0.1 MG/DL (<0.4); BILIRUBIN,TOTAL 0.3 MG/DL (0.3-1.2); BLOOD UREA NITROGEN 16 MG/DL (9-23); C REACTIVE PROTEIN QUANTITATIV 1.99 MG/DL (<1.0); CALCIUM LEVEL 9.1 MG/DL (8.3-10.6); CARBON DIOXIDE LEVEL 28 MMOL/L (20-31); CHLORIDE LEVEL 106 MMOL/L (98-107); CREATININE FOR GFR 0.51 MG/DL (0.55-1.30); GLOMERULAR FILTRATION RATE > 60.0 (>39); GLUCOSE, FASTING 96 MG/DL (74-106); POTASSIUM SERUM 4.5 MMOL/L (3.5-5.1); SODIUM LEVEL 143 MMOL/L (136-145); TOTAL PROTEIN 6.7 G/DL (5.7-8.2)
== END ==
LOC: SKLAB3 07:00
PROVIDERS: ATTEND Internal Medicine
DX: M06.9 Rheumatoid arthritis, unspecified (principal); Z79.899 Other long term (current) drug therapy

== ENCOUNTER → 2024-11-01 | Outpatient (REF) | payer MEDICARE, MEDICAID ==
[~2024-11-01] MED LIST changes: +DENO60SY2 SC; -PROL60SO SC
[2024-11-01 07:45] LABS: BASO % 0.3 % (0.0-1.0); EOS # 1.3 10^3/uL (0.0-0.5); HEMATOCRIT 38.4 % (36.0-47.0); HEMOGLOBIN 12.2 g/dl (12.0-15.5); LYMPH # 1.5 10^3/uL (1.5-5.0); LYMPH % 20.1 % (24.0-44.0); MEAN CORPUSCULAR HEMOGLOBIN 31.3 pg (27.0-33.0); MEAN CORPUSCULAR HGB CONC 31.8 g/dl (32.0-36.5); MEAN CORPUSCULAR VOLUME 98.5 fl (80.0-96.0); MONO # 0.4 10^3/uL (0.0-0.8); MONO % 5.1 % (2.0-8.0); NEUTROPHILS # 4.2 10^3/uL (1.5-8.5); NEUTROPHILS % 56.2 % (36.0-66.0); PLATELET COUNT, AUTOMATED 342 10^3/uL (150-450); WHITE BLOOD COUNT 7.5 10^3/uL (4.0-10.0)
[2024-11-01 07:52] LABS: ERYTHROCYTE SEDIMENTATION RATE 55 mm/hr (0-30)
[2024-11-01 08:07] LABS: ALBUMIN 2.4 G/DL (3.2-5.2); ALKALINE PHOSPHATASE 84 U/L (35-104); ALT/SGPT < 9 U/L (7.0-40); AST/SGOT 11 U/L (<34); BILIRUBIN,DIRECT < 0.1 MG/DL (<0.4); BILIRUBIN,TOTAL 0.3 MG/DL (0.3-1.2); BLOOD UREA NITROGEN 20 MG/DL (9-23); C REACTIVE PROTEIN QUANTITATIV 2.15 MG/DL (<1.0); CALCIUM LEVEL 8.8 MG/DL (8.3-10.6); CARBON DIOXIDE LEVEL 28 MMOL/L (20-31); CHLORIDE LEVEL 106 MMOL/L (98-107); CREATININE FOR GFR 0.55 MG/DL (0.55-1.30); GLOMERULAR FILTRATION RATE > 60.0 (>39); GLUCOSE, FASTING 87 MG/DL (74-106); POTASSIUM SERUM 4.4 MMOL/L (3.5-5.1); SODIUM LEVEL 141 MMOL/L (136-145); TOTAL PROTEIN 6.2 G/DL (5.7-8.2)
== END ==
LOC: SKLAB3 07:00
PROVIDERS: ATTEND Internal Medicine
DX: M06.9 Rheumatoid arthritis, unspecified (principal); Z79.899 Other long term (current) drug therapy

== ENCOUNTER → 2024-12-06 | Outpatient (REF) | payer MEDICARE, MEDICAID ==
[~2024-12-06] MED LIST changes: +PRED-1142 PO; -PRED1TABL PO
[2024-12-06 07:50] LABS: BASO % 0.1 % (0.0-1.0); EOS # 0.9 10^3/uL (0.0-0.5); EOS % 12.7 % (0.0-3.0); HEMATOCRIT 40.4 % (36.0-47.0); HEMOGLOBIN 12.9 g/dl (12.0-15.5); LYMPH # 1.4 10^3/uL (1.5-5.0); MEAN CORPUSCULAR HEMOGLOBIN 31.5 pg (27.0-33.0); MEAN CORPUSCULAR HGB CONC 31.9 g/dl (32.0-36.5); MEAN CORPUSCULAR VOLUME 98.8 fl (80.0-96.0); MONO # 0.3 10^3/uL (0.0-0.8); MONO % 4.2 % (2.0-8.0); NEUTROPHILS # 4.5 10^3/uL (1.5-8.5); NEUTROPHILS % 62.7 % (36.0-66.0); PLATELET COUNT, AUTOMATED 333 10^3/uL (150-450); RED BLOOD COUNT 4.09 10^6/uL (4.00-5.40); WHITE BLOOD COUNT 7.2 10^3/uL (4.0-10.0)
[2024-12-06 08:04] LABS: ERYTHROCYTE SEDIMENTATION RATE 83 mm/hr (0-30)
[2024-12-06 08:17] LABS: C REACTIVE PROTEIN QUANTITATIV 1.43 MG/DL (<1.0); TOTAL 25(OH) VITAMIN D 74.7 NG/ML (20.0-100.0)
[2024-12-06 08:18] LABS: ALBUMIN 2.8 G/DL (3.2-5.2); ALKALINE PHOSPHATASE 95 U/L (35-104); ALT/SGPT 10 U/L (7.0-40); AST/SGOT 12 U/L (<34); BILIRUBIN,DIRECT 0.1 MG/DL (<0.4); BILIRUBIN,TOTAL 0.3 MG/DL (0.3-1.2); BLOOD UREA NITROGEN 19 MG/DL (9-23); CALCIUM LEVEL 9.2 MG/DL (8.3-10.6); CARBON DIOXIDE LEVEL 29 MMOL/L (20-31); CHLORIDE LEVEL 106 MMOL/L (98-107); CHOLESTEROL LEVEL 140 MG/DL (<200); CHOLESTEROL RISK RATIO 3.67 (<5); CREATININE FOR GFR 0.56 MG/DL (0.55-1.30); GLOMERULAR FILTRATION RATE > 90.0 (>39); GLUCOSE, FASTING 86 MG/DL (74-106); HDL CHOLESTEROL 38.1 MG/DL (>40); LDL CHOLESTEROL 73.5 MG/DL (<100); NON-HDL-C 101.9 MG/DL; POTASSIUM SERUM 4.5 MMOL/L (3.5-5.1); SODIUM LEVEL 142 MMOL/L (136-145); TOTAL PROTEIN 6.7 G/DL (5.7-8.2); TRIGLYCERIDES LEVEL 142 MG/DL (<150)
== END ==
LOC: SKLAB3 07:00
PROVIDERS: ATTEND Internal Medicine
DX: M06.9 Rheumatoid arthritis, unspecified (principal); E78.5 Hyperlipidemia, unspecified; Z79.899 Other long term (current) drug therapy

== ENCOUNTER → 2025-02-07 | Outpatient (REF) | payer MEDICARE, MEDICAID ==
[2025-02-07 08:35] LABS: BASO % 0.1 % (0.0-1.0); EOS # 0.7 10^3/uL (0.0-0.5); EOS % 10.1 % (0.0-3.0); HEMATOCRIT 38.7 % (36.0-47.0); HEMOGLOBIN 12.6 g/dl (12.0-15.5); LYMPH # 1.5 10^3/uL (1.5-5.0); LYMPH % 22.2 % (24.0-44.0); MEAN CORPUSCULAR HEMOGLOBIN 31.6 pg (27.0-33.0); MEAN CORPUSCULAR HGB CONC 32.6 g/dl (32.0-36.5); MONO # 0.4 10^3/uL (0.0-0.8); MONO % 6.3 % (2.0-8.0); NEUTROPHILS # 4.2 10^3/uL (1.5-8.5); PLATELET COUNT, AUTOMATED 324 10^3/uL (150-450); RED BLOOD COUNT 3.99 10^6/uL (4.00-5.40); WHITE BLOOD COUNT 6.9 10^3/uL (4.0-10.0)
[2025-02-07 08:44] LABS: ERYTHROCYTE SEDIMENTATION RATE 73 mm/hr (0-30)
[2025-02-07 08:57] LABS: ALBUMIN 2.8 G/DL (3.2-5.2); ALKALINE PHOSPHATASE 85 U/L (35-104); ALT/SGPT < 9 U/L (7.0-40); AST/SGOT 14 U/L (<34); BILIRUBIN,DIRECT 0.1 MG/DL (<0.4); BILIRUBIN,TOTAL 0.3 MG/DL (0.3-1.2); BLOOD UREA NITROGEN 18 MG/DL (9-23); C REACTIVE PROTEIN QUANTITATIV 1.67 MG/DL (<1.0); CARBON DIOXIDE LEVEL 29 MMOL/L (20-31); CHLORIDE LEVEL 106 MMOL/L (98-107); CREATININE FOR GFR 0.56 MG/DL (0.55-1.30); GLOMERULAR FILTRATION RATE > 90.0 (>39); GLUCOSE, FASTING 82 MG/DL (74-106); POTASSIUM SERUM 4.3 MMOL/L (3.5-5.1); SODIUM LEVEL 142 MMOL/L (136-145); TOTAL PROTEIN 6.4 G/DL (5.7-8.2)
== END ==
LOC: SKLAB3 07:00
PROVIDERS: ATTEND Internal Medicine
DX: M06.9 Rheumatoid arthritis, unspecified (principal); Z79.899 Other long term (current) drug therapy

== ENCOUNTER → 2025-03-07 | Outpatient (REF) | payer MEDICARE, MEDICAID ==
[~2025-03-07] MED LIST changes: -PROZ20CA11 PO; +PROZ20CA12 PO
[2025-03-07 08:29] LABS: BASO # 0.0 10^3/uL (0.0-0.2); BASO % 0.1 % (0.0-1.0); EOS # 0.7 10^3/uL (0.0-0.5); EOS % 10.5 % (0.0-3.0); LYMPH # 1.5 10^3/uL (1.5-5.0); LYMPH % 21.6 % (24.0-44.0); MONO # 0.3 10^3/uL (0.0-0.8); MONO % 4.4 % (2.0-8.0); NEUTROPHILS # 4.5 10^3/uL (1.5-8.5); NEUTROPHILS % 63.1 % (36.0-66.0); PLATELET COUNT, AUTOMATED 328 10^3/uL (150-450)
[2025-03-07 08:36] LABS: ERYTHROCYTE SEDIMENTATION RATE 71 mm/hr (0-30)
[2025-03-07 08:52] LABS: ALT/SGPT < 9 U/L (7.0-40); AST/SGOT 12 U/L (<34); C REACTIVE PROTEIN QUANTITATIV 1.05 MG/DL (<1.0); CALCIUM LEVEL 8.8 MG/DL (8.3-10.6); CARBON DIOXIDE LEVEL 27 MMOL/L (20-31); CHLORIDE LEVEL 105 MMOL/L (98-107); CREATININE FOR GFR 0.55 MG/DL (0.55-1.30); GLOMERULAR FILTRATION RATE > 90.0 (>39); POTASSIUM SERUM 4.3 MMOL/L (3.5-5.1); SODIUM LEVEL 142 MMOL/L (136-145)
== END ==
LOC: SKLAB3 07:00
PROVIDERS: ATTEND Internal Medicine
DX: M06.9 Rheumatoid arthritis, unspecified (principal); Z79.899 Other long term (current) drug therapy

== ENCOUNTER → 2025-04-10 | Outpatient (REF) | payer MEDICARE, MEDICAID | LOC: SKLAB3 12:15 | PROVIDERS: ATTEND Internal Medicine | DX: K59.00 Constipation, unspecified (principal) ==

== ENCOUNTER → 2025-04-11 | Outpatient (REF) | payer MEDICARE, MEDICAID ==
[2025-04-11 09:46] LABS: BASO # 0.0 10^3/uL (0.0-0.2); BASO % 0.3 % (0.0-1.0); EOS # 0.5 10^3/uL (0.0-0.5); EOS % 5.3 % (0.0-3.0); LYMPH # 1.4 10^3/uL (1.5-5.0); LYMPH % 14.6 % (24.0-44.0); MONO # 0.9 10^3/uL (0.0-0.8); MONO % 9.5 % (2.0-8.0); NEUTROPHILS # 6.5 10^3/uL (1.5-8.5); NEUTROPHILS % 70.0 % (36.0-66.0); PLATELET COUNT, AUTOMATED 317 10^3/uL (150-450)
[2025-04-11 09:56] LABS: ERYTHROCYTE SEDIMENTATION RATE 119 mm/hr (0-30)
[2025-04-11 10:17] LABS: ALT/SGPT < 9 U/L (7.0-40); AST/SGOT 12 U/L (<34); C REACTIVE PROTEIN QUANTITATIV 15.07 MG/DL (<1.0); CALCIUM LEVEL 9.2 MG/DL (8.3-10.6); CARBON DIOXIDE LEVEL 27 MMOL/L (20-31); CHLORIDE LEVEL 107 MMOL/L (98-107); CREATININE FOR GFR 0.58 MG/DL (0.55-1.30); GLOMERULAR FILTRATION RATE > 90.0 (>39); POTASSIUM SERUM 4.1 MMOL/L (3.5-5.1); SODIUM LEVEL 145 MMOL/L (136-145)
== END ==
LOC: SKLAB3 07:00
PROVIDERS: ATTEND Internal Medicine
DX: M06.9 Rheumatoid arthritis, unspecified (principal); Z79.899 Other long term (current) drug therapy

== ENCOUNTER → 2025-05-16 | Outpatient (REF) | payer MEDICARE, MEDICAID ==
[2025-05-16 14:40] LABS: BASO # 0.0 10^3/uL (0.0-0.2); BASO % 0.1 % (0.0-1.0); EOS # 0.6 10^3/uL (0.0-0.5); EOS % 6.8 % (0.0-3.0); LYMPH # 1.3 10^3/uL (1.5-5.0); LYMPH % 14.2 % (24.0-44.0); MONO # 0.4 10^3/uL (0.0-0.8); MONO % 4.4 % (2.0-8.0); NEUTROPHILS # 7.0 10^3/uL (1.5-8.5); NEUTROPHILS % 74.3 % (36.0-66.0); PLATELET COUNT, AUTOMATED 383 10^3/uL (150-450)
[2025-05-16 14:46] LABS: ERYTHROCYTE SEDIMENTATION RATE 106 mm/hr (0-30)
[2025-05-16 15:11] LABS: C REACTIVE PROTEIN QUANTITATIV 0.97 MG/DL (<1.0)
[2025-05-16 15:14] LABS: ALT/SGPT < 9 U/L (7.0-40); AST/SGOT 13 U/L (<34); CALCIUM LEVEL 8.9 MG/DL (8.3-10.6); CARBON DIOXIDE LEVEL 28 MMOL/L (20-31); CHLORIDE LEVEL 102 MMOL/L (98-107); CREATININE FOR GFR 0.61 MG/DL (0.55-1.30); GLOMERULAR FILTRATION RATE > 90.0 (>39); POTASSIUM SERUM 4.6 MMOL/L (3.5-5.1); SODIUM LEVEL 138 MMOL/L (136-145)
== END ==
LOC: SKLAB3 07:00
PROVIDERS: ATTEND Family Medicine
DX: M06.9 Rheumatoid arthritis, unspecified (principal); Z79.899 Other long term (current) drug therapy

== ENCOUNTER → 2025-06-13 | Outpatient (REF) | payer MEDICARE, MEDICAID ==
[2025-06-13 08:21] LABS: BASO # 0.0 10^3/uL (0.0-0.2); BASO % 0.1 % (0.0-1.0); EOS # 0.6 10^3/uL (0.0-0.5); EOS % 8.2 % (0.0-3.0); LYMPH # 1.4 10^3/uL (1.5-5.0); LYMPH % 19.6 % (24.0-44.0); MONO # 0.4 10^3/uL (0.0-0.8); MONO % 5.2 % (2.0-8.0); NEUTROPHILS # 4.7 10^3/uL (1.5-8.5); NEUTROPHILS % 66.6 % (36.0-66.0); PLATELET COUNT, AUTOMATED 346 10^3/uL (150-450)
[2025-06-13 08:58] LABS: C REACTIVE PROTEIN QUANTITATIV 1.81 MG/DL (<1.0)
[2025-06-13 08:59] LABS: ALT/SGPT 9 U/L (7.0-40); AST/SGOT 14 U/L (<34); CALCIUM LEVEL 9.5 MG/DL (8.3-10.6); CARBON DIOXIDE LEVEL 25 MMOL/L (20-31); CHLORIDE LEVEL 107 MMOL/L (98-107); CREATININE FOR GFR 0.55 MG/DL (0.55-1.30); GLOMERULAR FILTRATION RATE > 90.0 (>39); POTASSIUM SERUM 4.4 MMOL/L (3.5-5.1); SODIUM LEVEL 144 MMOL/L (136-145); TOTAL 25(OH) VITAMIN D 85.6 NG/ML (20.0-100.0)
== END ==
LOC: SKLAB3 07:00
PROVIDERS: ATTEND Family Medicine
DX: M06.9 Rheumatoid arthritis, unspecified (principal); Z51.81 Encounter for therapeutic drug level monitoring; Z79.899 Other long term (current) drug therapy

== ENCOUNTER → 2025-07-12 | Outpatient (REF) | payer MEDICARE, MEDICAID ==
[~2025-07-12] MED LIST changes: -PROZ20CA12 PO; +PROZ20CA25 PO
[2025-07-12 08:38] LABS: BASO # 0.0 10^3/uL (0.0-0.2); BASO % 0.1 % (0.0-1.0); EOS # 1.1 10^3/uL (0.0-0.5); EOS % 15.2 % (0.0-3.0); LYMPH # 1.4 10^3/uL (1.5-5.0); LYMPH % 19.7 % (24.0-44.0); MONO # 0.3 10^3/uL (0.0-0.8); MONO % 3.4 % (2.0-8.0); NEUTROPHILS # 4.5 10^3/uL (1.5-8.5); NEUTROPHILS % 61.2 % (36.0-66.0); PLATELET COUNT, AUTOMATED 355 10^3/uL (150-450)
[2025-07-12 09:10] LABS: ALT/SGPT < 9 U/L (7.0-40); AST/SGOT 13 U/L (<34); C REACTIVE PROTEIN QUANTITATIV 1.27 MG/DL (<1.0); CALCIUM LEVEL 8.8 MG/DL (8.3-10.6); CARBON DIOXIDE LEVEL 29 MMOL/L (20-31); CHLORIDE LEVEL 103 MMOL/L (98-107); CREATININE FOR GFR 0.58 MG/DL (0.55-1.30); GLOMERULAR FILTRATION RATE > 90.0 (>39); POTASSIUM SERUM 4.5 MMOL/L (3.5-5.1); SODIUM LEVEL 142 MMOL/L (136-145)
== END ==
LOC: SKLAB3 07:00
PROVIDERS: ATTEND Family Medicine
DX: M06.9 Rheumatoid arthritis, unspecified (principal); Z79.899 Other long term (current) drug therapy

== ENCOUNTER → 2025-08-08 | Outpatient (REF) | payer MEDICARE, MEDICAID ==
[2025-08-08 09:28] LABS: BASO # 0.0 10^3/uL (0.0-0.2); BASO % 0.2 % (0.0-1.0); EOS # 1.3 10^3/uL (0.0-0.5); EOS % 15.1 % (0.0-3.0); LYMPH # 1.5 10^3/uL (1.5-5.0); LYMPH % 17.2 % (24.0-44.0); MONO # 0.3 10^3/uL (0.0-0.8); MONO % 3.1 % (2.0-8.0); NEUTROPHILS # 5.6 10^3/uL (1.5-8.5); NEUTROPHILS % 64.1 % (36.0-66.0); PLATELET COUNT, AUTOMATED 367 10^3/uL (150-450)
[2025-08-08 09:50] LABS: ALT/SGPT < 9 U/L (7.0-40); AST/SGOT 13 U/L (<34); C REACTIVE PROTEIN QUANTITATIV 1.90 MG/DL (<1.0); CALCIUM LEVEL 8.8 MG/DL (8.3-10.6); CARBON DIOXIDE LEVEL 30 MMOL/L (20-31); CHLORIDE LEVEL 104 MMOL/L (98-107); CREATININE FOR GFR 0.57 MG/DL (0.55-1.30); GLOMERULAR FILTRATION RATE > 90.0 (>39); POTASSIUM SERUM 4.4 MMOL/L (3.5-5.1); SODIUM LEVEL 143 MMOL/L (136-145)
== END ==
LOC: SKLAB3 07:00
PROVIDERS: ATTEND Family Medicine
DX: M06.9 Rheumatoid arthritis, unspecified (principal); Z79.899 Other long term (current) drug therapy